=== PATIENT | male | born 1955 | race Caucasian/White ===

== ENCOUNTER 2016-11-09 16:39 | Inpatient (IN) | payer MEDICARE ==
[2016-11-09 21:02] VITALS: BMI 23.6
--- NOTE | 2016-11-09 22:06 | CP.PCM.HP ---
History of Present Illness - History of Present Illness History of Present Illness: Chief Complaint: Transferred [place] [facility] [place] HPI: The hx was obtained from the patient, his family and the medical records. He is a 61 years old male Transferred from [facility] to the [facility]. He was admitted to the [facility] on October 30, 2016 and Dx with an Acute CVA with right side weakness. He referrs no headache, dizziness, chest pain nor palpitation. PMH:DM II; HTN : CAD: CVA on 2005; CKD on HD . He previously was on PD PSH: CABG 2005 SH: Live with Family,Quit smoking 11years; Occasional Alcohol FH: No Hereditary disease Allergies: NKDA Present on Admission - Present on Admission Any Indicators Present on Admission: No History of DVT/PE: No History of Uncontrolled Diabetes: No Urinary Catheter: No Decubitus Ulcer Present: No Review of Systems - Review of Systems Review of Systems: review of system is limited because of patients dysarthria - Constitutional Constitutional: absent: Fever - EENT Eyes: Requires Corrective Lenses Nose/Mouth/Throat: absent: Epistaxis, Hoarsness - Cardiovascular Cardiovascular: absent: Dyspnea, Leg Edema, Orthopnea - Respiratory Respiratory: absent: Cough, Dyspnea, Wheezing - Gastrointestinal Gastrointestinal: absent: Dysphagia, Nausea, Vomiting - Neurological Neurological: Focal Weakness - Endocrine Endocrine: absent: Palpitations, Polydipsia, Polyphagia, Polyuria - Hematologic/Lymphatic Hematologic: absent: Easy Bleeding, Easy Bruising Past Patient History - Past Medical History & Family History Past Medical History?: Yes - Past Social History Smoking Status: Former Smoker Chewing Tobacco Use: No Cigar Use: No Alcohol: Social Drugs: Denies Home Situation {Lives}: With Family - CARDIAC Hx Cardiac Disorders: Yes Other/Comment: CAD - PULMONARY Hx Respiratory Disorders: No - NEUROLOGICAL Hx Neurological Disorder: No - HEENT Hx HEENT Problems: No - RENAL Hx Chronic Kidney Disease: Yes Hx Dialysis: Yes - ENDOCRINE/METABOLIC Hx Diabetes Mellitus Type 2: Yes - HEMATOLOGICAL/ONCOLOGICAL Hx Blood Disorders: No - INTEGUMENTARY Hx Dermatological Problems: No - MUSCULOSKELETAL/RHEUMATOLOGICAL Hx Musculoskeletal Disorders: No - GASTROINTESTINAL Hx Gastrointestinal Disorders: No - GENITOURINARY/GYNECOLOGICAL Hx Genitourinary Disorders: No - PSYCHIATRIC Hx Psychophysiologic Disorder: Yes - SURGICAL HISTORY Hx Surgeries: Yes Other/Comment: CABG 2005 - ANESTHESIA Hx Anesthesia: Yes Hx Anesthesia Reactions: No Meds Allergies/Adverse Reactions: Allergies Allergy/AdvReac Type Severity Reaction Status Date / Time No Known Allergies Allergy Verified 11/09/16 20:29 Physical Exam - Constitutional Appears: No Acute Distress - Head Exam Head Exam: ATRAUMATIC, NORMOCEPHALIC - Eye Exam Eye Exam: EOMI, Normal appearance Pupil Exam: NORMAL ACCOMODATION, PERRL - ENT Exam ENT Exam: Mucous Membranes Moist, Normal Exam - Neck Exam Neck exam: Positive for: Normal Inspection. Negative for: Lymphadenopathy, Tenderness - Respiratory Exam Respiratory Exam: Clear to Auscultation Bilateral. absent: Rales, Rhonchi, Wheezes - Cardiovascular Exam Cardiovascular Exam: REGULAR RHYTHM, RRR, +S1, +S2. absent: Gallop - GI/Abdominal Exam GI & Abdominal Exam: Normal Bowel Sounds, Soft. absent: Mass, Organomegaly, Tenderness - Rectal Exam Rectal Exam: Deferred - Extremities Exam Extremities exam: Positive for: normal inspection. Negative for: calf tenderness, pedal edema - Back Exam Back exam: NORMAL INSPECTION. absent: CVA tenderness (L), CVA tenderness (R) - Neurological Exam Neurological exam: Alert, Oriented x3 Additional comments: Dysarthria, left facial droop, motor strength 0/5 at the left upper and left lower extremities. - Psychiatric Exam Psychiatric exam: Normal Affect, Normal Mood - Skin Skin Exam: Dry, Intact, Normal Color, Warm Results - Labs Result Diagrams: 11/10/16 07:05 11/10/16 07:05 Assessment & Plan - Assessment and Plan (Free Text) Assessment: #. Acute on chronic CVA #. HTN #. CKD #. Anemia #. CAD #. Hypokalemia Plan: 61 years old male Transferred from [facility] to the [facility]. He was admitted to the [facility] on October and Dx with an Acute CVA with right side weakness. He referrs no headache , dizziness, chest pain nor palpitation. #. Acute on chronic CVA with left sided weakness - ASA/ lipitor - Consult Dr Nicole physiatry - PT/OT #. HTN - Norvasc - Coreg/ Hydralazine/amlodipine - Follow blood pressures #. CKD - Consult Dr Jain nephrology - hemodialysis , , #. Anemia - continue Venofer - follow HB #. CAD - ASA/Plaviz/ lipitor #. Hypokalemia - Replete with KCL #. Hypothyroidism - Synthroid #.Code Status: Full - Date & Time Date: 11/09/16 Time: 22:06
[2016-11-10] MEDS ORDERED: Oxycodone/Acetaminophen 5/325 mg Tab PO PRN ×2 (00:07→02:04)
[2016-11-10] MEDS: Levothyroxine 100 MCG TAB PO SCH (06:27)
[2016-11-10] MEDS: Insulin Regular 100 units/ml SC SCH ×4 (06:31→21:47)
[2016-11-10 07:33] LABS: CALCIUM 6.9 mg/dL (8.4-10.2); MAGNESIUM 2.1 MG/DL (1.6-2.3); POTASSIUM 3.5 MMOL/L (3.6-5.0)
[2016-11-10 07:36] LABS: BASO # 0.1 K/uL (0.0-0.2); BASO % 0.7 % (0.0-2.0); EOS # 0.5 K/uL (0.0-0.7); HEMATOCRIT 28.5 % (35.0-51.0); LYMPH # 2.6 K/uL (1.0-4.3); LYMPH % 31.5 % (20.0-40.0); MEAN CELL VOLUME 86.8 fl (80.0-94.0); MEAN CORPUSCULAR HEMOGLOBIN 28.9 pg (27.0-31.0); MEAN CORPUSCULAR HGB CONC 33.3 g/dL (33.0-37.0); MEAN PLATELET VOLUME 7.3 fl (7.2-11.7); MONO # 1.1 K/uL (0.0-0.8); MONO % 13.3 % (0.0-10.0); NEUT # 4.1 K/uL (1.8-7.0); NEUT % 48.5 % (50.0-75.0); NRBC % 0.3 % (0.0-0.0); RED CELL DISTRIBUTION WIDTH 14.4 % (11.5-14.5); WHITE BLOOD COUNT 8.4 K/uL (4.8-10.8)
[2016-11-10 07:51] LABS: PARTIAL THROMBOPLASTIN TIME 38.5 SECONDS (23.3-32.5)
[2016-11-10] MEDS ORDERED: Pantoprazole 40 mg EC Tab PO SCH (09:00)
[2016-11-10] MEDS ORDERED: Potassium Chloride 20 mEq ER Tab PO ONE (09:16)
[2016-11-10 10:15] LABS: PHOSPHOROUS 3.2 mg/dl (2.5-4.5)
[2016-11-10 10:16] LABS: URIC ACID 3.9 mg/Dl (3.5-8.5)
[2016-11-10] MEDS ORDERED: Potassium Chloride 20 mEq/15 ml LIQ UD PO ONE (10:42)
--- NOTE | 2016-11-10 13:38 | PN ---
DATE: 11/10/2016 OVERALL PLAN OF CARE ESTIMATED LENGTH OF STAY: For this patient is 2-1/2-3 weeks. REHABILITATION IMPAIRMENT: Decreased strength, decreased mobility, facial muscle weakness, gait diff iculty, deconditioning, balance, speech problems. ETIOLOGICAL DIAGNOSIS: Cerebrovascular accident, left hemiplegia. Medical prognosis is fair. INTERVENTIONS: For physical therapy, occupational therapy, recreational therapy, speech therapy. Go als for the patient to be independent in bed mobility, independent to supervision functional position al changes, independent to supervision for simple transfers, supervision to contact guard for complex transfers, independent to supervision for ambulation with assistive devices, supervision to contact guard for elevations. Functional outcome is good. No acute barriers noted for discharge. DISCHARGE DISPOSITION: To be discharged home with supportive services. Jd Romero MD cc: [id number] TT: 11/10/2016 13:37:08 Confirmation # [id number] Dictation # [id number]
--- NOTE | 2016-11-10 14:16 | CP.PCM.CON ---
History of Present Illness - History of Present Illness History of Present Illness: patient with complains of arm and leg weakness Review of Systems - Musculoskeletal Musculoskeletal: Abnormal Gait, Muscle Weakness - Neurological Neurological: Abnormal Gait Past Patient History - Past Medical History & Family History Past Medical History?: Yes - Past Social History Smoking Status: Former Smoker Chewing Tobacco Use: No Cigar Use: No Alcohol: Social Drugs: Denies Home Situation {Lives}: With Family - CARDIAC Hx Hypertension: Yes - PULMONARY Hx Respiratory Disorders: No - NEUROLOGICAL HX Cerebrovascular Accident: Yes - HEENT Hx HEENT Problems: No - RENAL Hx Renal Failure: Yes - ENDOCRINE/METABOLIC Hx Diabetes Mellitus Type 2: Yes Hx Hypothyroidism: Yes - HEMATOLOGICAL/ONCOLOGICAL Hx Blood Disorders: No - INTEGUMENTARY Hx Dermatological Problems: No - MUSCULOSKELETAL/RHEUMATOLOGICAL Hx Musculoskeletal Disorders: No - GASTROINTESTINAL Hx Gastrointestinal Disorders: No - GENITOURINARY/GYNECOLOGICAL Hx Genitourinary Disorders: No - PSYCHIATRIC Hx Psychophysiologic Disorder: Yes - SURGICAL HISTORY Hx Surgeries: Yes Other/Comment: CABG 2006 - ANESTHESIA Hx Anesthesia: Yes Hx Anesthesia Reactions: No Meds Allergies/Adverse Reactions: Allergies Allergy/AdvReac Type Severity Reaction Status Date / Time No Known Allergies Allergy Verified 11/09/16 20:29 - Medications Medications: Current Medications Amlodipine Besylate (Norvasc) 10 mg PO DAILY [facility] Last Admin: 11/10/16 09:17 Dose: 10 mg Aspirin (Aspirin Chewable) 81 mg PO DAILY [facility] Last Admin: 11/10/16 09:17 Dose: 81 mg Atorvastatin Calcium (Lipitor) 20 mg PO DAILY [facility] Carvedilol (Coreg) 12.5 mg PO Q12H [facility] Last Admin: 11/10/16 11:32 Dose: 12.5 mg Cinacalcet (Sensipar) 30 mg PO DAILY [facility] Last Admin: 11/10/16 09:18 Dose: 30 mg Clopidogrel Bisulfate (Plavix) 75 mg PO DAILY [facility] Last Admin: 11/10/16 09:17 Dose: 75 mg Donepezil HCl (Aricept) 5 mg PO HS [facility] Epoetin Tyrone (Procrit) 10,000 unit IV TTS [facility] Ergocalciferol (Drisdol 50,000 Intl Units Cap) 1 cap PO LEONIDAS [facility] Gabapentin (Neurontin) 100 mg PO TID [facility] Last Admin: 11/10/16 13:47 Dose: 100 mg Heparin Sodium (Porcine) (Heparin) 5,000 units SC Q8 [facility] PRN Reason: Protocol Last Admin: 11/10/16 11:29 Dose: 5,000 units Hydralazine HCl (Apresoline) 25 mg PO Q8@0600,1400,2200 [facility] Last Admin: 11/10/16 13:49 Dose: Not Given Insulin Human Regular (Humulin R) 0 units SC ACHS [facility] PRN Reason: Protocol Last Admin: 11/10/16 11:31 Dose: 2 unit Iron Sucrose (Venofer) 100 mg IV TTS [facility] Levothyroxine Sodium (Synthroid) 100 mcg PO DAILY@0630 [facility] Last Admin: 11/10/16 06:27 Dose: 100 mcg Nitroglycerin (Nitrostat Sl Tab) 0.4 mg SL Q5MIN PRN PRN Reason: Other (CHEST PAIN) Oxycodone/Acetaminophen (Percocet 5/325 Mg Tab) 1 tab PO Q4H PRN PRN Reason: .Pain scale 4-10 Stop: 11/13/16 00:08 Pantoprazole Sodium (Protonix Susp) 40 mg PO DAILY [facility] Physical Exam - Head Exam Head Exam: ATRAUMATIC, NORMAL INSPECTION, NORMOCEPHALIC - Eye Exam Eye Exam: EOMI, Normal appearance, PERRL Pupil Exam: NORMAL ACCOMODATION - ENT Exam ENT Exam: Mucous Membranes Moist, Normal Exam - Neck Exam Neck exam: Positive for: Normal Inspection - Respiratory Exam Respiratory Exam: NORMAL BREATHING PATTERN - Cardiovascular Exam Cardiovascular Exam: REGULAR RHYTHM - GI/Abdominal Exam GI & Abdominal Exam: Normal Bowel Sounds - Rectal Exam Rectal Exam: NORMAL INSPECTION - Back Exam Back exam: NORMAL INSPECTION - Neurological Exam Neurological exam: Alert, CN II-XII Intact - Expanded Neurological Exam Expanded Cerebellar Function: Finger to Nose: Abnormal Left, Heel to Mcdonald: Abnormal Left Sensory exam: Lower Extremity Light Touch: Normal, Lower Extremity Pin Prick: Normal, Upper Extremity Pin Prick: Normal Neuro motor strength exam: Left Upper Extremity: 0, Left Lower Extremity: 2/1 DTR: Achilles Tendon Left: 1+, Achilles Tendon Right: 2+, Bicep Left: 2+, Bicep Right: 2+, Brachioradialis Left: 1+, Brachioradialis Right: 2+, Patellar Left: 1 +, Patellar Right: 2+, Tricep Left: 1+, Tricep Right: 2+ - Psychiatric Exam Psychiatric exam: Normal Affect, Normal Mood - Skin Skin Exam: Dry, Intact Results - Vital Signs Recent Vital Signs: Last Vital Signs Temp 98.0 F 11/10/16 07:40 Pulse 77 11/10/16 13:49 Resp 18 11/10/16 07:40 BP 111/41 L 11/10/16 13:49 Pulse Ox 95 11/10/16 07:40 - Labs Result Diagrams: 11/10/16 07:05 11/10/16 07:05 Labs: Laboratory Results - last 24 hr 11/09/16 11/10/16 11/10/16 22:07 06:25 07:05 WBC 8.4 RBC 3.28 L Hgb 9.5 L Hct 28.5 L MCV 86.8 MCH 28.9 MCHC 33.3 RDW 14.4 Plt Count 215 MPV 7.3 Neut % (Auto) 48.5 L Lymph % (Auto) 31.5 [place] % (Auto) 13.3 H Eos % (Auto) 6.0 H Baso % (Auto) 0.7 Neut # 4.1 Lymph # 2.6 [place] # 1.1 H Eos # 0.5 Baso # 0.1 PT 13.3 H INR 1.28 H APTT 38.5 H Sodium 143 Potassium 3.5 L Chloride 101 Carbon Dioxide 28 Anion Gap 18 BUN 23 H Creatinine 4.3 H Est GFR ( Amer) 17 Est GFR (Non-Af Amer) 14 POC Glucose (mg/dL) 190 H 111 H Random Glucose 105 Uric Acid Calcium 6.9 L Phosphorus Magnesium 2.1 11/10/16 09:46 WBC RBC Hgb Hct MCV MCH MCHC RDW Plt Count MPV Neut % (Auto) Lymph % (Auto) [place] % (Auto) Eos % (Auto) Baso % (Auto) Neut # Lymph # [place] # Eos # Baso # PT INR APTT Sodium Potassium Chloride Carbon Dioxide Anion Gap BUN Creatinine Est GFR ( Amer) Est GFR (Non-Af Amer) POC Glucose (mg/dL) Random Glucose Uric Acid 3.9 Calcium Phosphorus 3.2 Magnesium Assessment & Plan (1) CVA (cerebrovascular accident) Assessment and Plan: plan for physcial, occupational, recreational therapy and speech therapy . Dictated Plan of care Status: Acute (2) ESRD (end stage renal disease) on dialysis Status: Acute (3) CAD (coronary artery disease) Status: Acute
--- NOTE | 2016-11-10 15:15 | CP.PCM.CON ---
History of Present Illness - History of Present Illness History of Present Illness: REASONS FOR CONSULT : ESRD ON HD T ANEMIA OF CKD ALL EMR REVIEWED .. LABS REVIEWED .. PT WAS EXAMINED Chief Complaint: Transferred [place] [facility] [place] HPI: The hx was obtained from the patient, his family and the medical records. He is a 61 years old male Transferred from [facility] to the [facility]. He was admitted to the [facility] on October 30, 2016 and Dx with an Acute CVA with right side weakness. He referrs no headache, dizziness, chest pain nor palpitation. PMH:DM II; HTN : CAD: CVA on 2005; CKD on HD . He previously was on PD PSH: CABG 2005 SH: Live with Family,Quit smoking 11years; Occasional Alcohol FH: No Hereditary disease Allergies: NKDA Past Patient History - Past Medical History & Family History Past Medical History?: Yes - Past Social History Smoking Status: Former Smoker Chewing Tobacco Use: No Cigar Use: No Alcohol: Social Drugs: Denies Home Situation {Lives}: With Family - CARDIAC Hx Hypertension: Yes - PULMONARY Hx Respiratory Disorders: No - NEUROLOGICAL HX Cerebrovascular Accident: Yes - HEENT Hx HEENT Problems: No - RENAL Hx Renal Failure: Yes - ENDOCRINE/METABOLIC Hx Diabetes Mellitus Type 2: Yes Hx Hypothyroidism: Yes - HEMATOLOGICAL/ONCOLOGICAL Hx Blood Disorders: No - INTEGUMENTARY Hx Dermatological Problems: No - MUSCULOSKELETAL/RHEUMATOLOGICAL Hx Musculoskeletal Disorders: No - GASTROINTESTINAL Hx Gastrointestinal Disorders: No - GENITOURINARY/GYNECOLOGICAL Hx Genitourinary Disorders: No - PSYCHIATRIC Hx Psychophysiologic Disorder: Yes - SURGICAL HISTORY Hx Surgeries: Yes Other/Comment: CABG 2005 - ANESTHESIA Hx Anesthesia: Yes Hx Anesthesia Reactions: No Meds Allergies/Adverse Reactions: Allergies Allergy/AdvReac Type Severity Reaction Status Date / Time No Known Allergies Allergy Verified 11/09/16 20:29 - Medications Medications: Current Medications Amlodipine Besylate (Norvasc) 10 mg PO DAILY [facility] Last Admin: 11/10/16 09:17 Dose: 10 mg Aspirin (Aspirin Chewable) 81 mg PO DAILY [facility] Last Admin: 11/10/16 09:17 Dose: 81 mg Atorvastatin Calcium (Lipitor) 20 mg PO DAILY [facility] Carvedilol (Coreg) 12.5 mg PO Q12H [facility] Last Admin: 11/10/16 11:32 Dose: 12.5 mg Cinacalcet (Sensipar) 30 mg PO DAILY [facility] Last Admin: 11/10/16 09:18 Dose: 30 mg Clopidogrel Bisulfate (Plavix) 75 mg PO DAILY [facility] Last Admin: 11/10/16 09:17 Dose: 75 mg Donepezil HCl (Aricept) 5 mg PO HS [facility] Epoetin Tyrone (Procrit) 10,000 unit IV TTS [facility] Ergocalciferol (Drisdol 50,000 Intl Units Cap) 1 cap PO LEONIDAS [facility] Gabapentin (Neurontin) 100 mg PO TID [facility] Last Admin: 11/10/16 13:47 Dose: 100 mg Gentamicin Sulfate (Gentamicin 0.1%) 1 applic TOP DAILY [facility] Heparin Sodium (Porcine) (Heparin) 5,000 units SC Q8 [facility] PRN Reason: Protocol Last Admin: 11/10/16 14:58 Dose: Not Given Hydralazine HCl (Apresoline) 25 mg PO Q8@0600,1400,2200 [facility] Last Admin: 11/10/16 13:49 Dose: Not Given Insulin Human Regular (Humulin R) 0 units SC ACHS [facility] PRN Reason: Protocol Last Admin: 11/10/16 11:31 Dose: 2 unit Iron Sucrose (Venofer) 100 mg IV TTS [facility] Levothyroxine Sodium (Synthroid) 100 mcg PO DAILY@0630 [facility] Last Admin: 11/10/16 06:27 Dose: 100 mcg Nitroglycerin (Nitrostat Sl Tab) 0.4 mg SL Q5MIN PRN PRN Reason: Other (CHEST PAIN) Oxycodone/Acetaminophen (Percocet 5/325 Mg Tab) 1 tab PO Q4H PRN PRN Reason: .Pain scale 4-10 Stop: 11/13/16 00:08 Pantoprazole Sodium (Protonix Susp) 40 mg PO DAILY [facility] Results - Vital Signs Recent Vital Signs: Last Vital Signs Temp 98.0 F 11/10/16 07:40 Pulse 77 11/10/16 13:49 Resp 18 11/10/16 07:40 BP 111/41 L 11/10/16 13:49 Pulse Ox 95 11/10/16 07:40 - Labs Result Diagrams: 11/10/16 07:05 11/10/16 07:05 Labs: Laboratory Results - last 24 hr 11/09/16 11/10/16 11/10/16 22:07 06:25 07:05 WBC 8.4 RBC 3.28 L Hgb 9.5 L Hct 28.5 L MCV 86.8 MCH 28.9 MCHC 33.3 RDW 14.4 Plt Count 215 MPV 7.3 Neut % (Auto) 48.5 L Lymph % (Auto) 31.5 [place] % (Auto) 13.3 H Eos % (Auto) 6.0 H Baso % (Auto) 0.7 Neut # 4.1 Lymph # 2.6 [place] # 1.1 H Eos # 0.5 Baso # 0.1 PT 13.3 H INR 1.28 H APTT 38.5 H Sodium 143 Potassium 3.5 L Chloride 101 Carbon Dioxide 28 Anion Gap 18 BUN 23 H Creatinine 4.3 H Est GFR ( Amer) 17 Est GFR (Non-Af Amer) 14 POC Glucose (mg/dL) 190 H 111 H Random Glucose 105 Uric Acid Calcium 6.9 L Phosphorus Magnesium 2.1 11/10/16 09:46 WBC RBC Hgb Hct MCV MCH MCHC RDW Plt Count MPV Neut % (Auto) Lymph % (Auto) [place] % (Auto) Eos % (Auto) Baso % (Auto) Neut # Lymph # [place] # Eos # Baso # PT INR APTT Sodium Potassium Chloride Carbon Dioxide Anion Gap BUN Creatinine Est GFR ( Amer) Est GFR (Non-Af Amer) POC Glucose (mg/dL) Random Glucose Uric Acid 3.9 Calcium Phosphorus 3.2 Magnesium Assessment & Plan - Assessment and Plan (Free Text) Assessment: ESRD ON HD TTS .. TO BE CONTINUED ANEMIA OF CKD .. WILL DO ANEMIA W/U AND TRX WITH EPO C/O CURRENT CARE ORDERS WRITTEN CONSENT FOR HD WAS OBTAINED - Date & Time Date: 11/10/16 Time: 15:00
[2016-11-11] MEDS: Levothyroxine 100 MCG TAB PO SCH (05:49)
[2016-11-11] MEDS: Insulin Regular 100 units/ml SC SCH ×4 (06:54→21:09)
[2016-11-11] MEDS: Pantoprazole 40 mg Susp UD PO SCH (08:49)
[2016-11-11] MEDS ORDERED: Iron Sucrose 100 mg/5 ml Inj IV SCH (09:00)
[2016-11-11] MEDS: EPOETIN ALFA 10,000 UNIT/ML ML IV SCH (15:31)
--- NOTE | 2016-11-11 22:33 | PN ---
DATE: 11/11/2016 The patient is doing fine, no acute complaints of nausea, vomiting, or diarrhea. The patient with pr oblems of left-sided weakness. VITAL SIGNS: Stable. NECK: Supple. CHEST: Symmetrical. HEART: Sounds S1, S2. ABDOMINAL AREA: Benign. EXTREMITIES: No clubbing, cyanosis, or edema. The patient with weakness of the left arm and left leg. IMPRESSION: Acute cerebrovascular accident, left hemiplegia secondary to cerebrovascular accident, c oronary artery disease, status post coronary artery bypass graft, hypothyroidism, end-stage renal dis ease, peripheral vascular disease, anemia. PLAN: Physical therapy, occupational therapy, speech therapy, recreational therapy, range of motion, strengthening, transfers, ambulation, gait training, and continue with the testing shaking shipping regarding th e dialysis. Jd Romero MD cc: [id number] TT: 11/11/2016 22:33:08 Confirmation # [id number] Dictation # [id number] tianna
[2016-11-12] MEDS: Levothyroxine 100 MCG TAB PO SCH (06:05)
[2016-11-12] MEDS: Insulin Regular 100 units/ml SC SCH ×4 (06:33→21:33)
[2016-11-12] MEDS: Pantoprazole 40 mg Susp UD PO SCH (08:53)
[2016-11-13] MEDS: Levothyroxine 100 MCG TAB PO SCH (06:16)
[2016-11-13] MEDS: Insulin Regular 100 units/ml SC SCH ×4 (06:42→21:38)
[2016-11-13] MEDS: Pantoprazole 40 mg Susp UD PO SCH (08:36)
[2016-11-13 10:11] LABS: CALCIUM 7.1 mg/dL (8.4-10.2); POTASSIUM 3.9 MMOL/L (3.6-5.0)
[2016-11-13] MEDS ORDERED: Oxycodone/Acetaminophen 5/325 mg Tab PO PRN (12:58)
--- NOTE | 2016-11-13 13:43 | CP.PCM.PN ---
Subjective - Date & Time of Evaluation Date of Evaluation: 11/13/16 Time of Evaluation: 11:50 - Subjective Subjective: Hospitalist Progress Note (Patient was seen at 11:50 AM 11/13/16) 61 year old male was treated at [facility] 10/30/16 for Acute CVA with residual left arm/leg leg weakness and then was transferred to [facility] 11/09/16. Currently upon FULL ROS there is NO chest pain, NO palpitations, NO SOB/Cough/ Wheezing, NO dyphagia, NO odynophagia, NO abdominal pain, NO n/v/d/c, NO burning /pain with urination, NO lightheadedness/dizziness, NO headaches, NO new changes in vision/eye pain, NO new changes in hearing/ear pain, NO edema, NO paresthesias (he has no loss of sensation on any part of his body), (+) Paralysis of Left Arm and Left Leg Objective - Vital Signs/Intake and Output Vital Signs (last 24 hours): Temp Pulse Resp BP Pulse Ox 97.5 F L 67 18 148/62 98 11/13/16 07:53 11/13/16 12:57 11/13/16 07:53 11/13/16 12:20 11/13/16 07:53 - Medications Medications: Current Medications Amlodipine Besylate (Norvasc) 10 mg PO DAILY [facility] Last Admin: 11/13/16 08:36 Dose: 10 mg Aspirin (Aspirin Chewable) 81 mg PO DAILY [facility] Last Admin: 11/13/16 08:36 Dose: 81 mg Atorvastatin Calcium (Lipitor) 20 mg PO DAILY [facility] Last Admin: 11/13/16 08:36 Dose: 20 mg Carvedilol (Coreg) 12.5 mg PO Q12H [facility] Last Admin: 11/13/16 12:20 Dose: 12.5 mg Cinacalcet (Sensipar) 30 mg PO DAILY [facility] Last Admin: 11/13/16 08:36 Dose: 30 mg Clopidogrel Bisulfate (Plavix) 75 mg PO DAILY [facility] Last Admin: 11/13/16 08:36 Dose: 75 mg Donepezil HCl (Aricept) 5 mg PO HS [facility] Last Admin: 11/12/16 21:33 Dose: 5 mg Epoetin Tyrone (Procrit) 10,000 unit IV TTS [facility] Last Admin: 11/11/16 15:31 Dose: 10,000 unit Ergocalciferol (Drisdol 50,000 Intl Units Cap) 1 cap PO LEONIDAS [facility] Gabapentin (Neurontin) 100 mg PO TID [facility] Last Admin: 11/13/16 12:21 Dose: 100 mg Gentamicin Sulfate (Gentamicin 0.1%) 1 applic TOP DAILY [facility] Last Admin: 11/13/16 08:36 Dose: 1 applic Heparin Sodium (Porcine) (Heparin) 5,000 units SC Q8 [facility] PRN Reason: Protocol Last Admin: 11/13/16 06:16 Dose: 5,000 units Hydralazine HCl (Apresoline) 25 mg PO Q8@0600,1400,2200 [facility] Last Admin: 11/13/16 06:17 Dose: 25 mg Iron Sucrose 100 mg/ Sodium (Chloride) 105 mls @ 105 mls/hr IV TTS [facility] Last Admin: 11/11/16 15:31 Dose: 105 mls/hr Insulin Human Regular (Humulin R) 0 units SC ACHS [facility] PRN Reason: Protocol Last Admin: 11/13/16 12:16 Dose: 2 unit Levothyroxine Sodium (Synthroid) 100 mcg PO DAILY@0630 [facility] Last Admin: 11/13/16 06:16 Dose: 100 mcg Nitroglycerin (Nitrostat Sl Tab) 0.4 mg SL Q5MIN PRN PRN Reason: Other (CHEST PAIN) Oxycodone/Acetaminophen (Percocet 5/325 Mg Tab) 1 tab PO Q4 PRN PRN Reason: Pain scale 4-10. Stop: 11/16/16 12:59 Pantoprazole Sodium (Protonix Susp) 40 mg PO DAILY [facility] Last Admin: 11/13/16 08:36 Dose: 40 mg Tamsulosin HCl (Flomax) 0.4 mg PO DAILY [facility] - Labs Labs: 11/10/16 07:05 11/13/16 09:30 PT 13.3 SECONDS (9.6-11.2) H 11/10/16 07:05 INR 1.28 (0.92-1.08) H 11/10/16 07:05 APTT 38.5 SECONDS (23.3-32.5) H 11/10/16 07:05 - Constitutional Appears: Non-toxic, No Acute Distress - Head Exam Head Exam: ATRAUMATIC, NORMAL INSPECTION, NORMOCEPHALIC - Eye Exam Eye Exam: EOMI, Normal appearance, PERRL Pupil Exam: NORMAL ACCOMODATION, PERRL - ENT Exam ENT Exam: Mucous Membranes Moist, Normal Exam, Normal External Ear Exam, Normal Oropharynx Additional comments: TONGUE WITH THICK SCRAPABLE WHITE/GREEN [place] - Neck Exam Neck Exam: Normal Inspection Additional comments: NO LYMPHADENOPATHY NO THYROMEGALY - Respiratory Exam Respiratory Exam: Clear to Ausculation Bilateral, NORMAL BREATHING PATTERN Additional comments: NO R/R/W - Cardiovascular Exam Cardiovascular Exam: REGULAR RHYTHM, +S1, +S2 Additional comments: NO M/R/G - GI/Abdominal Exam Additional comments: BS X 4, SOFT, NT, ND, NO HSM, NO GUARDING/REBOUND TENDERNESS - Extremities Exam Extremities Exam: Normal Capillary Refill Additional comments: NO EDEMA CAPILLARY REFILL IS 2 SECONDS PULSES ARE STRONG AND EQUAL - Neurological Exam Neurological Exam: Alert, Awake, CN II-XII Intact, Oriented x3 Neuro motor strength exam: Left Upper Extremity: 0, Right Upper Extremity: 5, Left Lower Extremity: 0, Right Lower Extremity: 5 Assessment and Plan (1) CVA (cerebrovascular accident) Assessment & Plan: Aricept 5 mg PO QHS Neurontin 100 mg PO 3x/day ASA 81 mg PO 1x/day Lipitor 20 mg PO QHS Status: Acute (2) CAD (coronary artery disease) Assessment & Plan: Norvasc 10 mg PO 1x/day ASA 81 mg PO 1x/day Lipitor 20 mg PO QHS Coreg 12.5 mg PO Q12H Plavix 75 mg PO 1x/day Nitro 0.4 SL [id number] PRN Chest Pain Status: Chronic (3) HTN (hypertension) Assessment & Plan: Norvasc and Coreg as above Hydralazine 25 mg PO 3x/day (6AM, 2PM, 10 PM) Controlled Status: Chronic (4) ESRD (end stage renal disease) on dialysis Assessment & Plan: Head Athletic Trainer/Strength Coach Dr. Jain HD via Right Chest Perm Cath [id number] Hx of Peritoneal Dialysis Sensipar 30 mg PO 1x/day Status: Chronic (5) History of urinary retention Assessment & Plan: Bladder Scan this morning revealed 614 mL urine residual and straight cath produced 1,000 mL Bladder Scan Q8H and Straight Cath if Urine Residual > 200 mL Flomax 04 mg PO 1x/day Avodart 0.5 mg PO 1x/day Status: Chronic (6) Anemia in chronic kidney disease (CKD) Assessment & Plan: Procrit 10,000 IV [id number] Ergocalciferol 1 cap PO Thurs Iron 100 mg IV [id number] Status: Chronic (7) Hypothyroid Assessment & Plan: Levothyroxine 100 mcg PO 1x/day Status: Chronic (8) Prophylactic measure Assessment & Plan: Heparin 5,000 Units SQ Q8H [facility] Protonix 40 mg PO 1x/day Percocet 5/325 mg PO Q4H PRN Moderate to Severe Pain Status: Acute
--- NOTE | 2016-11-13 19:35 | CP.PCM.PN ---
Subjective - Date & Time of Evaluation Date of Evaluation: 11/13/16 Time of Evaluation: 15:00 - Subjective Subjective: SEEN ON RENAL F/U TODAY APPEARS MORE ALERT AND MORE VERBAL HAD URINARY RETENSION .. STRAUGHT CATH DRAINED 1000 CC ON HD TTS Objective - Vital Signs/Intake and Output Vital Signs (last 24 hours): Temp Pulse Resp BP Pulse Ox 97.0 F L 70 20 129/66 98 11/13/16 19:27 11/13/16 19:27 11/13/16 19:27 11/13/16 19:27 11/13/16 19:27 - Medications Medications: Current Medications Amlodipine Besylate (Norvasc) 10 mg PO DAILY [facility] Last Admin: 11/13/16 08:36 Dose: 10 mg Ascorbic Acid (Vitamin C 500 Mg Tab) 500 mg PO DAILY [facility] Aspirin (Aspirin Chewable) 81 mg PO DAILY [facility] Last Admin: 11/13/16 08:36 Dose: 81 mg Atorvastatin Calcium (Lipitor) 20 mg PO DAILY [facility] Last Admin: 11/13/16 08:36 Dose: 20 mg Carvedilol (Coreg) 12.5 mg PO Q12H [facility] Last Admin: 11/13/16 12:20 Dose: 12.5 mg Cinacalcet (Sensipar) 30 mg PO DAILY [facility] Last Admin: 11/13/16 08:36 Dose: 30 mg Clopidogrel Bisulfate (Plavix) 75 mg PO DAILY [facility] Last Admin: 11/13/16 08:36 Dose: 75 mg Donepezil HCl (Aricept) 5 mg PO HS [facility] Last Admin: 11/12/16 21:33 Dose: 5 mg Epoetin Tyrone (Procrit) 10,000 unit IV TTS [facility] Last Admin: 11/11/16 15:31 Dose: 10,000 unit Ergocalciferol (Drisdol 50,000 Intl Units Cap) 1 cap PO LEONIDAS [facility] Finasteride (Proscar) 5 mg PO DAILY [facility] Gabapentin (Neurontin) 100 mg PO TID [facility] Last Admin: 11/13/16 16:53 Dose: 100 mg Gentamicin Sulfate (Gentamicin 0.1%) 1 applic TOP DAILY [facility] Last Admin: 11/13/16 08:36 Dose: 1 applic Heparin Sodium (Porcine) (Heparin) 5,000 units SC Q8 [facility] PRN Reason: Protocol Last Admin: 11/13/16 14:50 Dose: 5,000 units Hydralazine HCl (Apresoline) 25 mg PO Q8@0600,1400,2200 [facility] Last Admin: 11/13/16 14:49 Dose: Not Given Iron Sucrose 100 mg/ Sodium (Chloride) 105 mls @ 105 mls/hr IV TTS [facility] Last Admin: 11/11/16 15:31 Dose: 105 mls/hr Insulin Human Regular (Humulin R) 0 units SC ACHS [facility] PRN Reason: Protocol Last Admin: 11/13/16 16:53 Dose: 1 unit Levothyroxine Sodium (Synthroid) 100 mcg PO DAILY@0630 [facility] Last Admin: 11/13/16 06:16 Dose: 100 mcg Nitroglycerin (Nitrostat Sl Tab) 0.4 mg SL Q5MIN PRN PRN Reason: Other (CHEST PAIN) Oxycodone/Acetaminophen (Percocet 5/325 Mg Tab) 1 tab PO Q4 PRN PRN Reason: Pain scale 4-10. Stop: 11/16/16 12:59 Pantoprazole Sodium (Protonix Susp) 40 mg PO DAILY [facility] Last Admin: 11/13/16 08:36 Dose: 40 mg Tamsulosin HCl (Flomax) 0.4 mg PO DAILY [facility] Vitamin B Complex/Vit C/Folic Acid (Nephro-Prosper) 1 tab PO DAILY [facility] - Labs Labs: 11/10/16 07:05 11/13/16 09:30 PT 13.3 SECONDS (9.6-11.2) H 11/10/16 07:05 INR 1.28 (0.92-1.08) H 11/10/16 07:05 APTT 38.5 SECONDS (23.3-32.5) H 11/10/16 07:05 Assessment and Plan - Assessment and Plan (Free Text) Assessment: ESRD ON HD TTS ANEMIA OF CKD ON EPO URINARY RETENTION .. START FLOMAX AND AVODART STRAIGHT CATH FOR > THAN 200 CC URINE ON BLADDER SCAN Plan: ESRD ON HD TTS ANEMIA OF CKD ON EPO URINARY RETENTION C/O CURRENT CARE
[2016-11-14] MEDS: Levothyroxine 100 MCG TAB PO SCH (05:39)
[2016-11-14] MEDS: Insulin Regular 100 units/ml SC SCH ×4 (06:52→22:42)
[2016-11-14 07:33] LABS: BASO # 0.1 K/uL (0.0-0.2); BASO % 0.7 % (0.0-2.0); EOS # 0.5 K/uL (0.0-0.7); EOS % 5.5 % (0.0-4.0); HEMATOCRIT 29.7 % (35.0-51.0); LYMPH # 3.1 K/uL (1.0-4.3); LYMPH % 31.3 % (20.0-40.0); MEAN CELL VOLUME 89.2 fl (80.0-94.0); MEAN CORPUSCULAR HEMOGLOBIN 28.6 pg (27.0-31.0); MEAN CORPUSCULAR HGB CONC 32.1 g/dL (33.0-37.0); MEAN PLATELET VOLUME 7.5 fl (7.2-11.7); MONO # 1.1 K/uL (0.0-0.8); MONO % 10.8 % (0.0-10.0); NEUT # 5.1 K/uL (1.8-7.0); NEUT % 51.7 % (50.0-75.0); RED CELL DISTRIBUTION WIDTH 14.7 % (11.5-14.5); WHITE BLOOD COUNT 9.9 K/uL (4.8-10.8)
[2016-11-14 07:54] LABS: BILIRUBIN,TOTAL 0.5 mg/dl (0.2-1.3); CALCIUM 7.3 mg/dL (8.4-10.2); POTASSIUM 4.1 MMOL/L (3.6-5.0)
[2016-11-14 07:55] LABS: ALB/GLOB RATIO 0.8 (1.0-2.1)
[2016-11-14] MEDS: Multivitamin Vitamin B Complex (Nephro-Vite) Tab PO SCH (08:58)
[2016-11-14] MEDS: Pantoprazole 40 mg Susp UD PO SCH (08:59)
--- NOTE | 2016-11-14 12:49 | CP.PCM.PN ---
Subjective - Date & Time of Evaluation Date of Evaluation: 11/12/16 Time of Evaluation: 10:00 - Subjective Subjective: patinet with complaints of still with weakness Objective - Vital Signs/Intake and Output Vital Signs (last 24 hours): Temp Pulse Resp BP Pulse Ox 97.8 F 64 19 119/62 96 11/14/16 08:27 11/14/16 08:27 11/14/16 08:27 11/14/16 08:56 11/14/16 08:27 Intake and Output: 11/14/16 11/14/16 06:59 18:59 Intake Total 150 Balance 150 - Medications Medications: Current Medications Amlodipine Besylate (Norvasc) 10 mg PO DAILY [facility] Last Admin: 11/14/16 08:56 Dose: Not Given Ascorbic Acid (Vitamin C 500 Mg Tab) 500 mg PO DAILY [facility] Last Admin: 11/14/16 08:59 Dose: 500 mg Aspirin (Aspirin Chewable) 81 mg PO DAILY [facility] Last Admin: 11/14/16 09:00 Dose: 81 mg Atorvastatin Calcium (Lipitor) 20 mg PO DAILY@2100 [facility] Carvedilol (Coreg) 12.5 mg PO Q12@0900,2100 [facility] Cinacalcet (Sensipar) 30 mg PO DAILY [facility] Last Admin: 11/14/16 08:59 Dose: 30 mg Clopidogrel Bisulfate (Plavix) 75 mg PO DAILY [facility] Last Admin: 11/14/16 08:56 Dose: 75 mg Donepezil HCl (Aricept) 5 mg PO HS [facility] Last Admin: 11/13/16 21:38 Dose: 5 mg Epoetin Tyrone (Procrit) 10,000 unit IV TTS [facility] Last Admin: 11/11/16 15:31 Dose: 10,000 unit Ergocalciferol (Drisdol 50,000 Intl Units Cap) 1 cap PO LEONIDAS [facility] Finasteride (Proscar) 5 mg PO DAILY [facility] Last Admin: 11/14/16 08:58 Dose: 5 mg Gabapentin (Neurontin) 100 mg PO TID [facility] Last Admin: 11/14/16 12:11 Dose: 100 mg Gentamicin Sulfate (Gentamicin 0.1%) 1 applic TOP DAILY@0600 [facility] Heparin Sodium (Porcine) (Heparin) 5,000 units SC Q8 [facility] PRN Reason: Protocol Last Admin: 11/14/16 05:38 Dose: 5,000 units Hydralazine HCl (Apresoline) 25 mg PO Q8@0600,1400,2200 [facility] Last Admin: 11/14/16 05:39 Dose: 25 mg Iron Sucrose 100 mg/ Sodium (Chloride) 105 mls @ 105 mls/hr IV TTS [facility] Last Admin: 11/11/16 15:31 Dose: 105 mls/hr Insulin Human Regular (Humulin R) 0 units SC ACHS [facility] PRN Reason: Protocol Last Admin: 11/14/16 12:10 Dose: 2 unit Levothyroxine Sodium (Synthroid) 100 mcg PO DAILY@0630 [facility] Last Admin: 11/14/16 05:39 Dose: 100 mcg Nitroglycerin (Nitrostat Sl Tab) 0.4 mg SL Q5MIN PRN PRN Reason: Other (CHEST PAIN) Oxycodone/Acetaminophen (Percocet 5/325 Mg Tab) 1 tab PO Q4 PRN PRN Reason: Pain scale 4-10. Stop: 11/16/16 12:59 Pantoprazole Sodium (Protonix Susp) 40 mg PO DAILY [facility] Last Admin: 11/14/16 08:59 Dose: 40 mg Tamsulosin HCl (Flomax) 0.4 mg PO DAILY [facility] Last Admin: 11/14/16 09:00 Dose: 0.4 mg Vitamin B Complex/Vit C/Folic Acid (Nephro-Prosper) 1 tab PO DAILY [facility] Last Admin: 11/14/16 08:58 Dose: 1 tab - Labs Labs: 11/14/16 06:40 11/14/16 06:40 PT 13.3 SECONDS (9.6-11.2) H 11/10/16 07:05 INR 1.28 (0.92-1.08) H 11/10/16 07:05 APTT 38.5 SECONDS (23.3-32.5) H 11/10/16 07:05 - Head Exam Head Exam: ATRAUMATIC, NORMAL INSPECTION, NORMOCEPHALIC - Eye Exam Eye Exam: EOMI, Normal appearance, PERRL Pupil Exam: NORMAL ACCOMODATION - ENT Exam ENT Exam: Mucous Membranes Moist, Normal Exam - Respiratory Exam Respiratory Exam: NORMAL BREATHING PATTERN - Cardiovascular Exam Cardiovascular Exam: REGULAR RHYTHM - GI/Abdominal Exam GI & Abdominal Exam: Soft, Normal Bowel Sounds - Rectal Exam Rectal Exam: NORMAL INSPECTION - Extremities Exam Extremities Exam: Normal Capillary Refill - Back Exam Back Exam: NORMAL INSPECTION - Neurological Exam Neurological Exam: Alert, Awake Neuro motor strength exam: Left Upper Extremity: 2/, Left Lower Extremity: 2/1 - Psychiatric Exam Psychiatric exam: Normal Affect, Normal Mood - Skin Skin Exam: Dry, Intact Assessment and Plan (1) CVA (cerebrovascular accident) Assessment & Plan: physical, occupational, rec and speech therapy Status: Acute (2) ESRD (end stage renal disease) on dialysis Status: Chronic (3) CAD (coronary artery disease) Status: Chronic
--- NOTE | 2016-11-14 13:00 | CP.PCM.PN ---
Subjective - Date & Time of Evaluation Date of Evaluation: 11/14/16 Time of Evaluation: 09:00 - Subjective Subjective: no acute complaints of pain, for team conference Objective - Vital Signs/Intake and Output Vital Signs (last 24 hours): Temp Pulse Resp BP Pulse Ox 97.8 F 64 19 119/62 96 11/14/16 08:27 11/14/16 08:27 11/14/16 08:27 11/14/16 08:56 11/14/16 08:27 Intake and Output: 11/14/16 11/14/16 06:59 18:59 Intake Total 150 Balance 150 - Medications Medications: Current Medications Amlodipine Besylate (Norvasc) 10 mg PO DAILY [facility] Last Admin: 11/14/16 08:56 Dose: Not Given Ascorbic Acid (Vitamin C 500 Mg Tab) 500 mg PO DAILY [facility] Last Admin: 11/14/16 08:59 Dose: 500 mg Aspirin (Aspirin Chewable) 81 mg PO DAILY [facility] Last Admin: 11/14/16 09:00 Dose: 81 mg Atorvastatin Calcium (Lipitor) 20 mg PO DAILY@2100 [facility] Carvedilol (Coreg) 12.5 mg PO Q12@0900,2100 [facility] Cinacalcet (Sensipar) 30 mg PO DAILY [facility] Last Admin: 11/14/16 08:59 Dose: 30 mg Clopidogrel Bisulfate (Plavix) 75 mg PO DAILY [facility] Last Admin: 11/14/16 08:56 Dose: 75 mg Donepezil HCl (Aricept) 5 mg PO HS [facility] Last Admin: 11/13/16 21:38 Dose: 5 mg Epoetin Tyrone (Procrit) 10,000 unit IV TTS [facility] Last Admin: 11/11/16 15:31 Dose: 10,000 unit Ergocalciferol (Drisdol 50,000 Intl Units Cap) 1 cap PO LEONIDAS [facility] Finasteride (Proscar) 5 mg PO DAILY [facility] Last Admin: 11/14/16 08:58 Dose: 5 mg Gabapentin (Neurontin) 100 mg PO TID [facility] Last Admin: 11/14/16 12:11 Dose: 100 mg Gentamicin Sulfate (Gentamicin 0.1%) 1 applic TOP DAILY@0600 [facility] Heparin Sodium (Porcine) (Heparin) 5,000 units SC Q8 [facility] PRN Reason: Protocol Last Admin: 11/14/16 05:38 Dose: 5,000 units Hydralazine HCl (Apresoline) 25 mg PO Q8@0600,1400,2200 [facility] Last Admin: 11/14/16 05:39 Dose: 25 mg Iron Sucrose 100 mg/ Sodium (Chloride) 105 mls @ 105 mls/hr IV TTS [facility] Last Admin: 11/11/16 15:31 Dose: 105 mls/hr Insulin Human Regular (Humulin R) 0 units SC ACHS [facility] PRN Reason: Protocol Last Admin: 11/14/16 12:10 Dose: 2 unit Levothyroxine Sodium (Synthroid) 100 mcg PO DAILY@0630 [facility] Last Admin: 11/14/16 05:39 Dose: 100 mcg Nitroglycerin (Nitrostat Sl Tab) 0.4 mg SL Q5MIN PRN PRN Reason: Other (CHEST PAIN) Oxycodone/Acetaminophen (Percocet 5/325 Mg Tab) 1 tab PO Q4 PRN PRN Reason: Pain scale 4-10. Stop: 11/16/16 12:59 Pantoprazole Sodium (Protonix Susp) 40 mg PO DAILY [facility] Last Admin: 11/14/16 08:59 Dose: 40 mg Tamsulosin HCl (Flomax) 0.4 mg PO DAILY [facility] Last Admin: 11/14/16 09:00 Dose: 0.4 mg Vitamin B Complex/Vit C/Folic Acid (Nephro-Prosper) 1 tab PO DAILY [facility] Last Admin: 11/14/16 08:58 Dose: 1 tab - Labs Labs: 11/14/16 06:40 11/14/16 06:40 PT 13.3 SECONDS (9.6-11.2) H 11/10/16 07:05 INR 1.28 (0.92-1.08) H 11/10/16 07:05 APTT 38.5 SECONDS (23.3-32.5) H 11/10/16 07:05 - Head Exam Head Exam: ATRAUMATIC, NORMAL INSPECTION, NORMOCEPHALIC - Eye Exam Eye Exam: EOMI, Normal appearance, PERRL Pupil Exam: NORMAL ACCOMODATION - ENT Exam ENT Exam: Mucous Membranes Moist, Normal Exam - Respiratory Exam Respiratory Exam: NORMAL BREATHING PATTERN - Cardiovascular Exam Cardiovascular Exam: REGULAR RHYTHM - GI/Abdominal Exam GI & Abdominal Exam: Normal Bowel Sounds - Rectal Exam Rectal Exam: NORMAL INSPECTION - Extremities Exam Extremities Exam: Normal Capillary Refill - Neurological Exam Neurological Exam: Alert, Awake Neuro motor strength exam: Left Upper Extremity: 2/, Left Lower Extremity: 2/1 - Psychiatric Exam Psychiatric exam: Normal Affect, Normal Mood - Skin Skin Exam: Dry, Intact Assessment and Plan (1) CVA (cerebrovascular accident) Assessment & Plan: elec stim for the arm, physcial, occupational and rec monitor dialysis upgrade diet Status: Acute (2) ESRD (end stage renal disease) on dialysis Status: Chronic (3) CAD (coronary artery disease) Status: Chronic
--- NOTE | 2016-11-14 17:11 | CP.PCM.CON ---
History of Present Illness - History of Present Illness History of Present Illness: UROLOGY pt seen s/p paul has developed urine retention. He had a chaparro cath since he was admitted here. Since admissioin on 11/09 cath was removed but has not once voided on his own. his residual urines have beenin xcess of 600 cc. He was just recently started on flomax. Pt has limited ability to communicate. I will anvise to insert a [address] and after a week or so give him a new voiding trial Past Patient History - Past Medical History & Family History Past Medical History?: Yes - Past Social History Smoking Status: Former Smoker Chewing Tobacco Use: No Cigar Use: No Alcohol: Social Drugs: Denies Home Situation {Lives}: With Family - CARDIAC Hx Hypertension: Yes - PULMONARY Hx Respiratory Disorders: No - NEUROLOGICAL HX Cerebrovascular Accident: Yes - HEENT Hx HEENT Problems: No - RENAL Hx Renal Failure: Yes - ENDOCRINE/METABOLIC Hx Diabetes Mellitus Type 2: Yes Hx Hypothyroidism: Yes - HEMATOLOGICAL/ONCOLOGICAL Hx Blood Disorders: No - INTEGUMENTARY Hx Dermatological Problems: No - MUSCULOSKELETAL/RHEUMATOLOGICAL Hx Musculoskeletal Disorders: No - GASTROINTESTINAL Hx Gastrointestinal Disorders: No - GENITOURINARY/GYNECOLOGICAL Hx Genitourinary Disorders: No - PSYCHIATRIC Hx Psychophysiologic Disorder: Yes - SURGICAL HISTORY Hx Surgeries: Yes Other/Comment: CABG 2005 - ANESTHESIA Hx Anesthesia: Yes Hx Anesthesia Reactions: No Meds Allergies/Adverse Reactions: Allergies Allergy/AdvReac Type Severity Reaction Status Date / Time No Known Allergies Allergy Verified 11/09/16 20:29 - Medications Medications: Current Medications Amlodipine Besylate (Norvasc) 10 mg PO DAILY [facility] Last Admin: 11/14/16 08:56 Dose: Not Given Ascorbic Acid (Vitamin C 500 Mg Tab) 500 mg PO DAILY [facility] Last Admin: 11/14/16 08:59 Dose: 500 mg Aspirin (Aspirin Chewable) 81 mg PO DAILY [facility] Last Admin: 11/14/16 09:00 Dose: 81 mg Atorvastatin Calcium (Lipitor) 20 mg PO DAILY@2100 [facility] Carvedilol (Coreg) 12.5 mg PO Q12@0900,2100 [facility] Cinacalcet (Sensipar) 30 mg PO DAILY [facility] Last Admin: 11/14/16 08:59 Dose: 30 mg Clopidogrel Bisulfate (Plavix) 75 mg PO DAILY [facility] Last Admin: 11/14/16 08:56 Dose: 75 mg Donepezil HCl (Aricept) 5 mg PO HS [facility] Last Admin: 11/13/16 21:38 Dose: 5 mg Epoetin Tyrone (Procrit) 10,000 unit IV TTS [facility] Last Admin: 11/11/16 15:31 Dose: 10,000 unit Ergocalciferol (Drisdol 50,000 Intl Units Cap) 1 cap PO LEONIDAS [facility] Finasteride (Proscar) 5 mg PO DAILY [facility] Last Admin: 11/14/16 08:58 Dose: 5 mg Gabapentin (Neurontin) 100 mg PO TID [facility] Last Admin: 11/14/16 12:11 Dose: 100 mg Gentamicin Sulfate (Gentamicin 0.1%) 1 applic TOP DAILY@0600 [facility] Heparin Sodium (Porcine) (Heparin) 5,000 units SC Q8 [facility] PRN Reason: Protocol Last Admin: 11/14/16 13:02 Dose: 5,000 units Hydralazine HCl (Apresoline) 25 mg PO Q8@0600,1400,2200 [facility] Last Admin: 11/14/16 13:03 Dose: 25 mg Iron Sucrose 100 mg/ Sodium (Chloride) 105 mls @ 105 mls/hr IV TTS [facility] Last Admin: 11/11/16 15:31 Dose: 105 mls/hr Insulin Human Regular (Humulin R) 0 units SC ACHS [facility] PRN Reason: Protocol Last Admin: 11/14/16 12:10 Dose: 2 unit Levothyroxine Sodium (Synthroid) 100 mcg PO DAILY@0630 [facility] Last Admin: 11/14/16 05:39 Dose: 100 mcg Nitroglycerin (Nitrostat Sl Tab) 0.4 mg SL Q5MIN PRN PRN Reason: Other (CHEST PAIN) Oxycodone/Acetaminophen (Percocet 5/325 Mg Tab) 1 tab PO Q4 PRN PRN Reason: Pain scale 4-10. Stop: 11/16/16 12:59 Pantoprazole Sodium (Protonix Susp) 40 mg PO DAILY [facility] Last Admin: 11/14/16 08:59 Dose: 40 mg Tamsulosin HCl (Flomax) 0.4 mg PO DAILY [facility] Last Admin: 11/14/16 09:00 Dose: 0.4 mg Vitamin B Complex/Vit C/Folic Acid (Nephro-Prosper) 1 tab PO DAILY [facility] Last Admin: 11/14/16 08:58 Dose: 1 tab Results - Vital Signs Recent Vital Signs: Last Vital Signs Temp 97.5 F L 11/14/16 16:34 Pulse 65 11/14/16 16:34 Resp 20 11/14/16 16:34 BP 123/61 11/14/16 16:34 Pulse Ox 99 11/14/16 16:34 - Labs Result Diagrams: 11/14/16 06:40 11/14/16 06:40 Labs: Laboratory Results - last 24 hr 11/11/16 11/13/16 11/14/16 20:00 20:51 05:26 WBC RBC Hgb Hct MCV MCH MCHC RDW Plt Count MPV Neut % (Auto) Lymph % (Auto) Craven % (Auto) Eos % (Auto) Baso % (Auto) Neut # Lymph # Craven # Eos # Baso # Sodium Potassium Chloride Carbon Dioxide Anion Gap BUN Creatinine Est GFR ( Amer) Est GFR (Non-Af Amer) POC Glucose (mg/dL) 231 H 111 H Random Glucose Calcium Total Bilirubin AST ALT Alkaline Phosphatase Total Protein Albumin Globulin Albumin/Globulin Ratio Hep Bs Antibody Negative 11/14/16 11/14/16 11/14/16 06:40 11:24 16:17 WBC 9.9 RBC 3.33 L Hgb 9.5 L Hct 29.7 L MCV 89.2 D MCH 28.6 MCHC 32.1 L RDW 14.7 H Plt Count 190 MPV 7.5 Neut % (Auto) 51.7 Lymph % (Auto) 31.3 Craven % (Auto) 10.8 H Eos % (Auto) 5.5 H Baso % (Auto) 0.7 Neut # 5.1 Lymph # 3.1 Craven # 1.1 H Eos # 0.5 Baso # 0.1 Sodium 145 Potassium 4.1 Chloride 103 Carbon Dioxide 27 Anion Gap 20 BUN 37 H Creatinine 6.9 H Est GFR ( Amer) 10 Est GFR (Non-Af Amer) 8 POC Glucose (mg/dL) 232 H 106 Random Glucose 108 Calcium 7.3 L Total Bilirubin 0.5 AST 32 ALT 15 L Alkaline Phosphatase 121 Total Protein 7.0 Albumin 3.0 L Globulin 4.0 H Albumin/Globulin Ratio 0.8 L Hep Bs Antibody
[2016-11-14] MEDS: EPOETIN ALFA 10,000 UNIT/ML ML IV SCH ×2 (17:21→17:34)
--- NOTE | 2016-11-14 18:16 | CP.PCM.PN ---
Subjective - Date & Time of Evaluation Date of Evaluation: 11/14/16 Time of Evaluation: 13:00 - Subjective Subjective: SEEN ON RENAL F/U MORE AWARE AND VERBAL SEEN GETTING PT AND OT URINARY RETENTION REMAINS A PROBLEM CONSULT APPRECIATED .. FOR KEN CATH INSERTION Objective - Vital Signs/Intake and Output Vital Signs (last 24 hours): Temp Pulse Resp BP Pulse Ox 97.5 F L 65 20 123/61 99 11/14/16 16:34 11/14/16 16:34 11/14/16 17:39 11/14/16 17:39 11/14/16 17:39 Intake and Output: 11/14/16 11/14/16 06:59 18:59 Intake Total 150 520 Output Total 450 Balance 150 70 - Medications Medications: Current Medications Ascorbic Acid (Vitamin C 500 Mg Tab) 500 mg PO DAILY [facility] Last Admin: 11/14/16 08:59 Dose: 500 mg Aspirin (Aspirin Chewable) 81 mg PO DAILY [facility] Last Admin: 11/14/16 09:00 Dose: 81 mg Atorvastatin Calcium (Lipitor) 20 mg PO DAILY@2100 [facility] Carvedilol (Coreg) 12.5 mg PO Q12@0900,2100 [facility] Cinacalcet (Sensipar) 30 mg PO DAILY [facility] Last Admin: 11/14/16 08:59 Dose: 30 mg Clopidogrel Bisulfate (Plavix) 75 mg PO DAILY [facility] Last Admin: 11/14/16 08:56 Dose: 75 mg Donepezil HCl (Aricept) 5 mg PO HS [facility] Last Admin: 11/13/16 21:38 Dose: 5 mg Epoetin Tyrone (Procrit) 10,000 unit IV TTS [facility] Last Admin: 11/14/16 17:34 Dose: Not Given Ergocalciferol (Drisdol 50,000 Intl Units Cap) 1 cap PO LEONIDAS [facility] Finasteride (Proscar) 5 mg PO DAILY [facility] Last Admin: 11/14/16 08:58 Dose: 5 mg Gabapentin (Neurontin) 100 mg PO TID [facility] Last Admin: 11/14/16 12:11 Dose: 100 mg Gentamicin Sulfate (Gentamicin 0.1%) 1 applic TOP DAILY@0600 [facility] Heparin Sodium (Porcine) (Heparin) 5,000 units SC Q8 [facility] PRN Reason: Protocol Last Admin: 11/14/16 13:02 Dose: 5,000 units Hydralazine HCl (Apresoline) 25 mg PO Q8@0600,1400,2200 [facility] Last Admin: 11/14/16 13:03 Dose: 25 mg Iron Sucrose 100 mg/ Sodium (Chloride) 105 mls @ 105 mls/hr IV TTS [facility] Last Admin: 11/14/16 17:23 Dose: 105 mls/hr Insulin Human Regular (Humulin R) 0 units SC ACHS [facility] PRN Reason: Protocol Last Admin: 11/14/16 17:21 Dose: Not Given Levothyroxine Sodium (Synthroid) 100 mcg PO DAILY@0630 [facility] Last Admin: 11/14/16 05:39 Dose: 100 mcg Nitroglycerin (Nitrostat Sl Tab) 0.4 mg SL Q5MIN PRN PRN Reason: Other (CHEST PAIN) Oxycodone/Acetaminophen (Percocet 5/325 Mg Tab) 1 tab PO Q4 PRN PRN Reason: Pain scale 4-10. Stop: 11/16/16 12:59 Pantoprazole Sodium (Protonix Susp) 40 mg PO DAILY [facility] Last Admin: 11/14/16 08:59 Dose: 40 mg Tamsulosin HCl (Flomax) 0.4 mg PO DAILY [facility] Last Admin: 11/14/16 09:00 Dose: 0.4 mg Vitamin B Complex/Vit C/Folic Acid (Nephro-Prosper) 1 tab PO DAILY [facility] Last Admin: 11/14/16 08:58 Dose: 1 tab - Labs Labs: 11/14/16 06:40 11/14/16 06:40 PT 13.3 SECONDS (9.6-11.2) H 11/10/16 07:05 INR 1.28 (0.92-1.08) H 11/10/16 07:05 APTT 38.5 SECONDS (23.3-32.5) H 11/10/16 07:05 Assessment and Plan - Assessment and Plan (Free Text) Assessment: ESRD ON HD TTS ANEMIA OF CKD .. H/H STABLE ON EPO AND VENOFER URINARY RETENTION .. FOR KEN CATH INSERTION
[2016-11-15] MEDS: Levothyroxine 100 MCG TAB PO SCH (06:18)
[2016-11-15] MEDS: Insulin Regular 100 units/ml SC SCH ×4 (06:42→21:33)
[2016-11-15] MEDS: Multivitamin Vitamin B Complex (Nephro-Vite) Tab PO SCH (09:09)
[2016-11-15] MEDS: Pantoprazole 40 mg Susp UD PO SCH (09:09)
--- NOTE | 2016-11-15 11:54 | CP.PCM.PN ---
Subjective - Date & Time of Evaluation Date of Evaluation: 11/15/16 Time of Evaluation: 11:00 - Subjective Subjective: patinet with less complaints of weakness, alert Objective - Vital Signs/Intake and Output Vital Signs (last 24 hours): Temp Pulse Resp BP Pulse Ox 98.0 F 66 19 123/64 99 11/15/16 10:14 11/15/16 10:14 11/15/16 10:14 11/15/16 10:14 11/15/16 08:37 Intake and Output: 11/15/16 11/15/16 06:59 18:59 Intake Total 100 Output Total 400 Balance -300 - Medications Medications: Current Medications Ascorbic Acid (Vitamin C 500 Mg Tab) 500 mg PO DAILY [facility] Last Admin: 11/15/16 09:09 Dose: 500 mg Aspirin (Aspirin Chewable) 81 mg PO DAILY [facility] Last Admin: 11/15/16 09:09 Dose: 81 mg Atorvastatin Calcium (Lipitor) 20 mg PO DAILY@2100 [facility] Last Admin: 11/14/16 21:43 Dose: 20 mg Carvedilol (Coreg) 12.5 mg PO Q12@0900,2100 [facility] Last Admin: 11/15/16 09:09 Dose: 12.5 mg Clopidogrel Bisulfate (Plavix) 75 mg PO DAILY [facility] Last Admin: 11/15/16 09:09 Dose: 75 mg Donepezil HCl (Aricept) 5 mg PO HS [facility] Last Admin: 11/14/16 22:22 Dose: 5 mg Epoetin Tyorne (Procrit) 10,000 unit IV TTS [facility] Last Admin: 11/14/16 17:34 Dose: Not Given Ergocalciferol (Drisdol 50,000 Intl Units Cap) 1 cap PO LEONIDAS [facility] Finasteride (Proscar) 5 mg PO DAILY [facility] Last Admin: 11/15/16 09:10 Dose: 5 mg Gabapentin (Neurontin) 100 mg PO TID [facility] Last Admin: 11/15/16 09:10 Dose: 100 mg Gentamicin Sulfate (Gentamicin 0.1%) 1 applic TOP DAILY@0600 [facility] Last Admin: 11/15/16 06:18 Dose: 1 applic Heparin Sodium (Porcine) (Heparin) 5,000 units SC Q8 [facility] PRN Reason: Protocol Last Admin: 11/15/16 06:17 Dose: 5,000 units Hydralazine HCl (Apresoline) 25 mg PO Q8@0600,1400,2200 [facility] Last Admin: 11/15/16 06:17 Dose: 25 mg Iron Sucrose 100 mg/ Sodium (Chloride) 105 mls @ 105 mls/hr IV TTS [facility] Last Admin: 11/14/16 17:23 Dose: 105 mls/hr Insulin Human Regular (Humulin R) 0 units SC ACHS [facility] PRN Reason: Protocol Last Admin: 11/15/16 06:42 Dose: Not Given Levothyroxine Sodium (Synthroid) 100 mcg PO DAILY@0630 [facility] Last Admin: 11/15/16 06:18 Dose: 100 mcg Nitroglycerin (Nitrostat Sl Tab) 0.4 mg SL Q5MIN PRN PRN Reason: Other (CHEST PAIN) Oxycodone/Acetaminophen (Percocet 5/325 Mg Tab) 1 tab PO Q4 PRN PRN Reason: Pain scale 4-10. Stop: 11/16/16 12:59 Pantoprazole Sodium (Protonix Susp) 40 mg PO DAILY [facility] Last Admin: 11/15/16 09:09 Dose: 40 mg Tamsulosin HCl (Flomax) 0.4 mg PO DAILY [facility] Last Admin: 11/15/16 09:10 Dose: 0.4 mg Vitamin B Complex/Vit C/Folic Acid (Nephro-Prosper) 1 tab PO DAILY [facility] Last Admin: 11/15/16 09:09 Dose: 1 tab - Labs Labs: 11/14/16 06:40 11/14/16 06:40 PT 13.3 SECONDS (9.6-11.2) H 11/10/16 07:05 INR 1.28 (0.92-1.08) H 11/10/16 07:05 APTT 38.5 SECONDS (23.3-32.5) H 11/10/16 07:05 - Head Exam Head Exam: ATRAUMATIC, NORMAL INSPECTION, NORMOCEPHALIC - Eye Exam Eye Exam: EOMI, Normal appearance, PERRL Pupil Exam: NORMAL ACCOMODATION - ENT Exam ENT Exam: Mucous Membranes Moist, Normal Exam - Respiratory Exam Respiratory Exam: NORMAL BREATHING PATTERN - Cardiovascular Exam Cardiovascular Exam: REGULAR RHYTHM - GI/Abdominal Exam GI & Abdominal Exam: Normal Bowel Sounds - Rectal Exam Rectal Exam: NORMAL INSPECTION - Extremities Exam Extremities Exam: Normal Capillary Refill - Back Exam Back Exam: NORMAL INSPECTION - Neurological Exam Neurological Exam: Alert, Awake Neuro motor strength exam: Left Upper Extremity: 2/, Left Lower Extremity: 2/ - Psychiatric Exam Psychiatric exam: Normal Affect, Normal Mood - Skin Skin Exam: Dry, Intact, Normal Color Assessment and Plan (1) CVA (cerebrovascular accident) Assessment & Plan: for team conference today, pt, ot , rec therapy. follow up with E stim now also to the leg nephrology follow up as well Status: Acute (2) ESRD (end stage renal disease) on dialysis Status: Chronic (3) CAD (coronary artery disease) Status: Chronic
--- NOTE | 2016-11-15 12:39 | PSY.TMCNF ---
Nursing - Vital Signs Vital Signs (Last 8 hours): Vital Signs 11/15/16 11/15/16 11/15/16 06:17 08:37 09:09 Temperature 98.0 F Pulse Rate 65 66 66 Respiratory 19 Rate Blood Pressure 131/66 123/68 123/64 O2 Sat by Pulse 99 Oximetry 11/15/16 10:14 Temperature 98.0 F Pulse Rate 66 Respiratory 19 Rate Blood Pressure 123/64 O2 Sat by Pulse Oximetry Pain: 0 - Precautions: Precautions: Fall Prevention, Aspiration - Medications/Other Issues Comment: Still has urinary retention, fr 16 chaparro inserted last night but pt asked for it to be reomved due to discomfort. Awaiting call back from Dr. Tracy. - Consults Comment: Dr. Romero, Dr. Tracy, Dr. Jain - Toileting Toileting: Maximal Assistance - Bladder Management Bladder Pattern: Retention Bladder Management: Dependent Frequency of Accidents: 0 - Straight catheter done. - Bowel Management Bowel Pattern: Constipated Bowel Management: Maximal Assistance Frequency of Accidents: 0 - Transfers Transfers: Maximal Assistance - ADL's ADL's: Moderate Assistance - Patient/Family Teaching Comments: Care post CVA and safety precautions. Urinary retention. - Goals/Time Frame Comments: Per multidisciplinary care plans and goals Physical Therapy - Bed Mobility Bed Mobility: Verbal Cues, Moderate Assistance - Transfers Wheelchair to Mat: Verbal Cues, Moderate Assistance, Maximum Assistance Sit to Stand: Verbal Cues, Moderate Assistance Comment: sit < > terminal operations manager parallel bars - Ambulation Level of Assistance: Not Tested - Stair Negotiation Stairs: Level of Assistance: Not Tested - Standing Balance Static Stand: Maximal Assistance Dynamic Stand: Unable to assess/perform - Pain Pain (assessed during therapy session): 0 - Insight/Carryover Insight/Carryover: Good - Patient/Family Education Comment: Pt education provided for increased safety awareness and proper techniques during functional mobility training. - Assessment/Plan Assessment: Shun Fink presents: 1) moderate-severe dysarthria characterized by L facial weakness with impaired respiration for phonation, impaired articulatory precision, and mildly hoarse vocal quality with reduced vocal volume, all negatively impacting intelligibility; 2) mild-moderate cognitive deficits characterized by impaired orientation, immediate and short- term recall, linguistic organization, and problem solving/reasoning; and 3) mild -moderate oropharyngeal dysphagia (per MBS 11/08/16) characterized by prolonged mastication and oral transit time with mildly impaired oral clearance for solids , mildly delayed swallow initiation with reduced laryngeal elevation, laryngeal penetration and volume dependent aspiration with large sips of thin liquids with delayed cough response, and flash penetration with cup sips of nectar. Pt with difficulty following commands for small, single sips with thin liquid trials in this assessment. However, pt with improved oral tolerance of finely chopped solids. Upgrade to finely chopped solids with nectar thick liquids; maintain aspiration precautions and assist with meals. [ End ] - Goals Timeframe: 4 weeks - Provider Therapist: Olga SANDOVALN RN CRRN Occupational Therapy - Arousal/Attention/Orientation Patient Orientation: Person - ADL/IADL Self Feeding: Supervision, Set-up Help Grooming: Supervision, Set-up Help Bathing-Upper Extremity: Maximum Assistance Bathing-Lower Extremity: Dependent Dressing-Upper Extremity: Maximum Assistance Dressing-Lower Extremity: Maximum Assistance - Sitting Balance Static Sitting: Supervision Dynamic Sitting: Unable to assess/perform - Transfers Wheelchair to Bed Transfers: Maximum Assistance Comment: Pt not appropriate for toileting and bathing tranfsers at this time - TBD in future sessions. - Wheelchair Management Level of Assistance: Dependent - Upper Extremity Status Right Upper Extremity Comment: RUE AROM WFL t/o Left Upper Extremity Comment: LUE no AROM t/o. Pt noted with 1.5 finger sublux inferiorly. Pt PROM WFL - Pain Pain (assessed during therapy session): 0 - Insight/Carryover Insight/Carryover: Good - Patient/Family Education Comment: Pt education provided for increased safety awareness and proper techniques during functional mobility training. - Assessment/Plan Assessment: Shun Fink presents: 1) moderate-severe dysarthria characterized by L facial weakness with impaired respiration for phonation, impaired articulatory precision, and mildly hoarse vocal quality with reduced vocal volume, all negatively impacting intelligibility; 2) mild-moderate cognitive deficits characterized by impaired orientation, immediate and short- term recall, linguistic organization, and problem solving/reasoning; and 3) mild -moderate oropharyngeal dysphagia (per MBS 11/08/16) characterized by prolonged mastication and oral transit time with mildly impaired oral clearance for solids , mildly delayed swallow initiation with reduced laryngeal elevation, laryngeal penetration and volume dependent aspiration with large sips of thin liquids with delayed cough response, and flash penetration with cup sips of nectar. Pt with difficulty following commands for small, single sips with thin liquid trials in this assessment. However, pt with improved oral tolerance of finely chopped solids. Upgrade to finely chopped solids with nectar thick liquids; maintain aspiration precautions and assist with meals. [ End ] - Goals Timeframe: 4 weeks - Provider Therapist: radha mccoy License Number: [id number] Speech Therapy - Consult Information Patient on Program: Yes Medical Diagnosis: CVA Treatment Diagnosis: moderate dysarthria. moderate dysphagia. mild-moderate cognitive-linguistic deficits - Assessment Problem Solving Impairment: Moderate Memory Impairment: Moderate Speech/Articulation Impairment: Moderate Dysphagia/Swallowing Impairment: Moderate - Plan Assessment: Shun Fink presents: 1) moderate-severe dysarthria characterized by L facial weakness with impaired respiration for phonation, impaired articulatory precision, and mildly hoarse vocal quality with reduced vocal volume, all negatively impacting intelligibility; 2) mild-moderate cognitive deficits characterized by impaired orientation, immediate and short- term recall, linguistic organization, and problem solving/reasoning; and 3) mild -moderate oropharyngeal dysphagia (per MBS 11/08/16) characterized by prolonged mastication and oral transit time with mildly impaired oral clearance for solids , mildly delayed swallow initiation with reduced laryngeal elevation, laryngeal penetration and volume dependent aspiration with large sips of thin liquids with delayed cough response, and flash penetration with cup sips of nectar. Pt with difficulty following commands for small, single sips with thin liquid trials in this assessment. However, pt with improved oral tolerance of finely chopped solids. Upgrade to finely chopped solids with nectar thick liquids; maintain aspiration precautions and assist with meals. [ End ] Plan: Continue Dysphagia Therapy, Continue Speech/Language Therapy Frequency: 3-5 times per week Duration: 1 week Goals/Timeframe: As per POC dated, 11/14/16. Recommendations: Continue speech and dysphagia tx 3-5x/week. - Provider Therapist: Eden Guzman License Number: [id number] Recreational Therapy - Participation Participation: Participates in Individual and/or Group Sessions - Attendance Attendance: 3-5 times per week - Activities Leisure Activities: Television - Socialization Level of Socialization: Minimal initiation of interaction to request basic needs - Diversional Time Diversional Time: television - Assessment Assessment/Plan: Shun Fink presents: 1) moderate-severe dysarthria characterized by L facial weakness with impaired respiration for phonation, impaired articulatory precision, and mildly hoarse vocal quality with reduced vocal volume, all negatively impacting intelligibility; 2) mild-moderate cognitive deficits characterized by impaired orientation, immediate and short- term recall, linguistic organization, and problem solving/reasoning; and 3) mild -moderate oropharyngeal dysphagia (per MBS 11/08/16) characterized by prolonged mastication and oral transit time with mildly impaired oral clearance for solids , mildly delayed swallow initiation with reduced laryngeal elevation, laryngeal penetration and volume dependent aspiration with large sips of thin liquids with delayed cough response, and flash penetration with cup sips of nectar. Pt with difficulty following commands for small, single sips with thin liquid trials in this assessment. However, pt with improved oral tolerance of finely chopped solids. Upgrade to finely chopped solids with nectar thick liquids; maintain aspiration precautions and assist with meals. [ End ] - Provider Therapist: Isa Sosa, CLERICAL SPECIALIST #[id number] Nutrition - Current Diet Current Diet/ Supplement/ Feedings: Renal dialysis 2 gram Na 3 gram K+ 90 gram protein 1000 ml fluid restriction Moderate consistent CHO low fat/low cholesterol Pureed nectar thick diet - Appetite Percent Meal Consumed: 75-100% - Comments Comments: Care post CVA and safety precautions. Urinary retention. - Assessment/Goals/Time Frame Assessment/Goals/Time Frame: Still has urinary retention, fr 16 chaparro inserted last night but pt asked for it to be reomved due to discomfort. Awaiting call back from Dr. Tracy. - Provider Provider: Yamini Shaffer RD Case Management - Discharge Plan Discharge Plan: Home with significant other/family (17)
--- NOTE | 2016-11-15 15:04 | CP.PCM.PN ---
Subjective - Date & Time of Evaluation Date of Evaluation: 11/15/16 Time of Evaluation: 11:20 - Subjective Subjective: Pt seen and examined. Therapy held held because of low BP although asymptomatic , . Objective - Vital Signs/Intake and Output Vital Signs (last 24 hours): Temp Pulse Resp BP Pulse Ox 98.0 F 65 19 108/58 L 99 11/15/16 10:14 11/15/16 14:38 11/15/16 10:14 11/15/16 14:38 11/15/16 08:37 Intake and Output: 11/15/16 11/15/16 06:59 18:59 Intake Total 100 Output Total 400 Balance -300 - Medications Medications: Current Medications Ascorbic Acid (Vitamin C 500 Mg Tab) 500 mg PO DAILY [facility] Last Admin: 11/15/16 09:09 Dose: 500 mg Aspirin (Aspirin Chewable) 81 mg PO DAILY [facility] Last Admin: 11/15/16 09:09 Dose: 81 mg Atorvastatin Calcium (Lipitor) 20 mg PO DAILY@2100 [facility] Last Admin: 11/14/16 21:43 Dose: 20 mg Carvedilol (Coreg) 12.5 mg PO Q12@0900,2100 [facility] Last Admin: 11/15/16 09:09 Dose: 12.5 mg Clopidogrel Bisulfate (Plavix) 75 mg PO DAILY [facility] Last Admin: 11/15/16 09:09 Dose: 75 mg Donepezil HCl (Aricept) 5 mg PO HS [facility] Last Admin: 11/14/16 22:22 Dose: 5 mg Epoetin Tyrone (Procrit) 10,000 unit IV TTS [facility] Last Admin: 11/14/16 17:34 Dose: Not Given Ergocalciferol (Drisdol 50,000 Intl Units Cap) 1 cap PO LEONIDAS [facility] Finasteride (Proscar) 5 mg PO DAILY [facility] Last Admin: 11/15/16 09:10 Dose: 5 mg Gabapentin (Neurontin) 100 mg PO TID [facility] Last Admin: 11/15/16 13:32 Dose: 100 mg Gentamicin Sulfate (Gentamicin 0.1%) 1 applic TOP DAILY@0600 [facility] Last Admin: 11/15/16 06:18 Dose: 1 applic Heparin Sodium (Porcine) (Heparin) 5,000 units SC Q8 [facility] PRN Reason: Protocol Last Admin: 11/15/16 14:32 Dose: 5,000 units Hydralazine HCl (Apresoline) 10 mg PO Q8@0600,1400,2200 [facility] Iron Sucrose 100 mg/ Sodium (Chloride) 105 mls @ 105 mls/hr IV TTS [facility] Last Admin: 11/14/16 17:23 Dose: 105 mls/hr Insulin Human Regular (Humulin R) 0 units SC ACHS [facility] PRN Reason: Protocol Last Admin: 11/15/16 12:24 Dose: 2 unit Levothyroxine Sodium (Synthroid) 100 mcg PO DAILY@0630 [facility] Last Admin: 11/15/16 06:18 Dose: 100 mcg Nitroglycerin (Nitrostat Sl Tab) 0.4 mg SL Q5MIN PRN PRN Reason: Other (CHEST PAIN) Oxycodone/Acetaminophen (Percocet 5/325 Mg Tab) 1 tab PO Q4 PRN PRN Reason: Pain scale 4-10. Stop: 11/16/16 12:59 Pantoprazole Sodium (Protonix Susp) 40 mg PO DAILY [facility] Last Admin: 11/15/16 09:09 Dose: 40 mg Tamsulosin HCl (Flomax) 0.4 mg PO DAILY [facility] Last Admin: 11/15/16 09:10 Dose: 0.4 mg Vitamin B Complex/Vit C/Folic Acid (Nephro-Prosper) 1 tab PO DAILY [facility] Last Admin: 11/15/16 09:09 Dose: 1 tab - Labs Labs: 11/14/16 06:40 11/14/16 06:40 PT 13.3 SECONDS (9.6-11.2) H 11/10/16 07:05 INR 1.28 (0.92-1.08) H 11/10/16 07:05 APTT 38.5 SECONDS (23.3-32.5) H 11/10/16 07:05 - Constitutional Appears: No Acute Distress - Head Exam Head Exam: ATRAUMATIC - Eye Exam Eye Exam: Normal appearance - ENT Exam ENT Exam: Mucous Membranes Moist - Neck Exam Neck Exam: absent: Meningismus - Respiratory Exam Respiratory Exam: Clear to Ausculation Bilateral, NORMAL BREATHING PATTERN - Cardiovascular Exam Cardiovascular Exam: REGULAR RHYTHM, +S1, +S2 - GI/Abdominal Exam GI & Abdominal Exam: Soft. absent: Tenderness - Rectal Exam Rectal Exam: Deferred - Neurological Exam Neurological Exam: Alert, Oriented x3 - Psychiatric Exam Psychiatric exam: Normal Affect - Skin Skin Exam: Dry, Intact Assessment and Plan - Assessment and Plan (Free Text) Assessment: 61 yo male with history of HTN, CAD, ESRD (on HD), DM2 and previous CVA transferred from [facility] where he was admitted for Acute CVA with right sided weakness to Acute rehab for continuation of PT/OT. (1) CVA (cerebrovascular accident) continue PT/OT when BP is stable continue ASA and Lipitor maintain BP control (2) CAD (coronary artery disease) continue ASA, Plavix, statin and BB NTG Sl prn for chest pain (3) HTN (hypertension) BP was low this am although asymptomatic hypotension probably secondary to Flomax which also lower BP continue Coreg 12.5mg PO q 12hrs reduce Hydralazine 10mg PO q 8hrs and hold for SBP < 110 (4) ESRD (end stage renal disease) on dialysis HD on Dr. Jain on renal consult continue Sensipar 30 mg PO daily (5) History of urinary retention Bladder Scan Q8H and straight cath if residual > 200 mL Flomax 04 mg PO daily Avodart 0.5 mg PO daily (6) Anemia in chronic kidney disease (CKD) Procrit 10,000 IV [id number] Iron 100 mg IV [id number] (7) Hypothyroid Levothyroxine 100 mcg PO daily (8) Prophylactic measure Heparin 5,000 Units SQ Q8H Protonix 40 mg PO daily
[2016-11-16] MEDS: Levothyroxine 100 MCG TAB PO SCH (06:19)
[2016-11-16] MEDS: Insulin Regular 100 units/ml SC SCH ×4 (06:32→22:08)
[2016-11-16] MEDS: Multivitamin Vitamin B Complex (Nephro-Vite) Tab PO SCH (08:39)
[2016-11-16] MEDS: Pantoprazole 40 mg Susp UD PO SCH (08:39)
[2016-11-16] MEDS: Ergocalciferol 50,000 Intl Units Cap PO SCH (08:39)
--- NOTE | 2016-11-16 16:02 | CP.PCM.CON ---
History of Present Illness - History of Present Illness History of Present Illness: 61 year old male seen at bedside for evaluation of painful elongated toenails bilaterally. Pt is admitted for acute rehab, s/p CVA and hemiparesis. Pt denies recent pedal trauma or injury. Pt grades pain form bedsheets on elongated nails a 11/24. Pt has had no acute overnight events. Upon arrival patient was comfortable and undergoing hemodialysis. He denies any chest pain or shortness of breath, or dizziness at this time. Pt denies f/c/n/v. Past Patient History - Past Medical History & Family History Past Medical History?: Yes - Past Social History Smoking Status: Former Smoker Chewing Tobacco Use: No Cigar Use: No Alcohol: Social Drugs: Denies Home Situation {Lives}: With Family - CARDIAC Hx Hypertension: Yes - PULMONARY Hx Respiratory Disorders: No - NEUROLOGICAL HX Cerebrovascular Accident: Yes - HEENT Hx HEENT Problems: No - RENAL Hx Renal Failure: Yes - ENDOCRINE/METABOLIC Hx Diabetes Mellitus Type 2: Yes Hx Hypothyroidism: Yes - HEMATOLOGICAL/ONCOLOGICAL Hx Blood Disorders: No - INTEGUMENTARY Hx Dermatological Problems: No - MUSCULOSKELETAL/RHEUMATOLOGICAL Hx Musculoskeletal Disorders: No - GASTROINTESTINAL Hx Gastrointestinal Disorders: No - GENITOURINARY/GYNECOLOGICAL Hx Genitourinary Disorders: No - PSYCHIATRIC Hx Psychophysiologic Disorder: Yes - SURGICAL HISTORY Hx Surgeries: Yes Other/Comment: CABG 2005 - ANESTHESIA Hx Anesthesia: Yes Hx Anesthesia Reactions: No Meds Allergies/Adverse Reactions: Allergies Allergy/AdvReac Type Severity Reaction Status Date / Time No Known Allergies Allergy Verified 11/09/16 20:29 - Medications Medications: Current Medications Ascorbic Acid (Vitamin C 500 Mg Tab) 500 mg PO DAILY [facility] Last Admin: 11/16/16 08:39 Dose: 500 mg Aspirin (Aspirin Chewable) 81 mg PO DAILY [facility] Last Admin: 11/16/16 08:39 Dose: 81 mg Atorvastatin Calcium (Lipitor) 20 mg PO DAILY@2100 [facility] Last Admin: 11/15/16 21:34 Dose: 20 mg Carvedilol (Coreg) 12.5 mg PO Q12@0900,2100 [facility] Last Admin: 11/16/16 08:53 Dose: Not Given Clopidogrel Bisulfate (Plavix) 75 mg PO DAILY [facility] Last Admin: 11/16/16 08:39 Dose: 75 mg Donepezil HCl (Aricept) 5 mg PO HS [facility] Last Admin: 11/15/16 21:32 Dose: 5 mg Epoetin Tyrone (Procrit) 10,000 unit IV TTS [facility] Last Admin: 11/14/16 17:34 Dose: Not Given Ergocalciferol (Drisdol 50,000 Intl Units Cap) 1 cap PO LEONIDAS [facility] Last Admin: 11/16/16 08:39 Dose: 1 cap Finasteride (Proscar) 5 mg PO DAILY [facility] Last Admin: 11/16/16 08:40 Dose: 5 mg Gabapentin (Neurontin) 100 mg PO TID [facility] Last Admin: 11/16/16 12:33 Dose: 100 mg Gentamicin Sulfate (Gentamicin 0.1%) 1 applic TOP DAILY@0600 [facility] Last Admin: 11/16/16 06:19 Dose: 1 applic Heparin Sodium (Porcine) (Heparin) 5,000 units SC Q8 [facility] PRN Reason: Protocol Last Admin: 11/16/16 14:40 Dose: 5,000 units Hydralazine HCl (Apresoline) 10 mg PO Q8@0600,1400,2200 [facility] Last Admin: 11/16/16 06:19 Dose: 10 mg Iron Sucrose 100 mg/ Sodium (Chloride) 105 mls @ 105 mls/hr IV TTS [facility] Last Admin: 11/14/16 17:23 Dose: 105 mls/hr Insulin Human Regular (Humulin R) 0 units SC ACHS [facility] PRN Reason: Protocol Last Admin: 11/16/16 12:30 Dose: 2 unit Levothyroxine Sodium (Synthroid) 100 mcg PO DAILY@0630 [facility] Last Admin: 11/16/16 06:19 Dose: 100 mcg Nitroglycerin (Nitrostat Sl Tab) 0.4 mg SL Q5MIN PRN PRN Reason: Other (CHEST PAIN) Pantoprazole Sodium (Protonix Susp) 40 mg PO DAILY [facility] Last Admin: 11/16/16 08:39 Dose: 40 mg Tamsulosin HCl (Flomax) 0.4 mg PO [facility] Vitamin B Complex/Vit C/Folic Acid (Nephro-Prosper) 1 tab PO DAILY [facility] Last Admin: 11/16/16 08:39 Dose: 1 tab Physical Exam - Constitutional Appears: Well, Non-toxic, No Acute Distress - Extremities Exam Additional comments: Lower extremity focused. Full leg length compression dressing noted to be applied and intact bilaterally. VASC: Weakly palpable DP and PT pulses bilaterally, pulses graded 1/4 bilaterally. CFT to digits was less than 3 seconds. Temperature gradient runs warm to cold. DERM. No open wounds nor inter-digital macerations noted bilaterally. Dystrophic , thickened, brittle, yellowed toenails x 10. NEURO: Protective sensation grossly intact bilaterally. ORTHO: Pedal muscle strength graded 5/5 bilaterally. No tenderness upon palpation. . - Neurological Exam Neurological exam: Alert, Oriented x3 - Psychiatric Exam Psychiatric exam: Normal Affect, Normal Mood Results - Vital Signs Recent Vital Signs: Last Vital Signs Temp 97.5 F L 11/16/16 10:00 Pulse 71 11/16/16 15:47 Resp 20 11/16/16 10:00 BP 116/58 L 11/16/16 15:47 Pulse Ox 91 L 11/16/16 15:47 - Labs Result Diagrams: 11/14/16 06:40 11/14/16 06:40 Labs: Laboratory Results - last 24 hr 11/15/16 11/15/16 11/15/16 12:22 15:25 20:49 POC Glucose (mg/dL) 229 H 131 H 197 H 11/16/16 11/16/16 11/16/16 05:51 11:52 15:08 POC Glucose (mg/dL) 153 H 218 H 98 Assessment & Plan - Assessment and Plan (Free Text) Assessment: 61 year old male with onychomycosis of all 10 digits. Plan: Patient seen and evaluated. Chart, lab, and vitals reviewed. Discussed with attending Dr. Kwan. Chart, labs and vitals reviewed. Aseptic onychoreduction performed on all 10 nail-plates without incident. Pt is stable from podiatric standpoint.. To followup with attending, Dr. Kwan upon discharge for future podiatric needs. Thank you for this consult and allowing podiatry to partake in the care of this patient - Date & Time Date: 11/16/16 Time: 15:54
[2016-11-16] MEDS: EPOETIN ALFA 10,000 UNIT/ML ML IV SCH ×2 (17:19→17:26)
--- NOTE | 2016-11-16 17:29 | CP.PCM.PN ---
Subjective - Date & Time of Evaluation Date of Evaluation: 11/16/16 Time of Evaluation: 17:28 - Subjective Subjective: Patient seen in room dialysis is going on at this time he is comfortable PEG and chaparro in place denies pain continue current care Objective - Vital Signs/Intake and Output Vital Signs (last 24 hours): Temp Pulse Resp BP Pulse Ox 98.6 F 65 20 100/58 L 96 11/16/16 16:06 11/16/16 16:06 11/16/16 16:06 11/16/16 16:38 11/16/16 16:06 Intake and Output: 11/16/16 11/16/16 06:59 18:59 Intake Total 250 Output Total 200 Balance 50 - Medications Medications: Current Medications Ascorbic Acid (Vitamin C 500 Mg Tab) 500 mg PO DAILY [facility] Last Admin: 11/16/16 08:39 Dose: 500 mg Aspirin (Aspirin Chewable) 81 mg PO DAILY [facility] Last Admin: 11/16/16 08:39 Dose: 81 mg Atorvastatin Calcium (Lipitor) 20 mg PO DAILY@2100 [facility] Last Admin: 11/15/16 21:34 Dose: 20 mg Carvedilol (Coreg) 12.5 mg PO Q12@0900,2100 [facility] Last Admin: 11/16/16 08:53 Dose: Not Given Clopidogrel Bisulfate (Plavix) 75 mg PO DAILY [facility] Last Admin: 11/16/16 08:39 Dose: 75 mg Donepezil HCl (Aricept) 5 mg PO HS [facility] Last Admin: 11/15/16 21:32 Dose: 5 mg Epoetin Tyrone (Procrit) 10,000 unit IV TTS [facility] Last Admin: 11/16/16 17:26 Dose: 10,000 unit Ergocalciferol (Drisdol 50,000 Intl Units Cap) 1 cap PO LEONIDAS [facility] Last Admin: 11/16/16 08:39 Dose: 1 cap Finasteride (Proscar) 5 mg PO DAILY [facility] Last Admin: 11/16/16 08:40 Dose: 5 mg Gabapentin (Neurontin) 100 mg PO TID [facility] Last Admin: 11/16/16 12:33 Dose: 100 mg Gentamicin Sulfate (Gentamicin 0.1%) 1 applic TOP DAILY@0600 [facility] Last Admin: 11/16/16 06:19 Dose: 1 applic Heparin Sodium (Porcine) (Heparin) 5,000 units SC Q8 [facility] PRN Reason: Protocol Last Admin: 11/16/16 14:40 Dose: 5,000 units Hydralazine HCl (Apresoline) 10 mg PO Q8@0600,1400,2200 [facility] Last Admin: 11/16/16 16:38 Dose: Not Given Iron Sucrose 100 mg/ Sodium (Chloride) 105 mls @ 105 mls/hr IV TTS [facility] Last Admin: 11/16/16 17:23 Dose: 105 mls/hr Insulin Human Regular (Humulin R) 0 units SC ACHS [facility] PRN Reason: Protocol Last Admin: 11/16/16 17:18 Dose: Not Given Levothyroxine Sodium (Synthroid) 100 mcg PO DAILY@0630 [facility] Last Admin: 11/16/16 06:19 Dose: 100 mcg Nitroglycerin (Nitrostat Sl Tab) 0.4 mg SL Q5MIN PRN PRN Reason: Other (CHEST PAIN) Pantoprazole Sodium (Protonix Susp) 40 mg PO DAILY [facility] Last Admin: 11/16/16 08:39 Dose: 40 mg Tamsulosin HCl (Flomax) 0.4 mg PO HS [facility] Vitamin B Complex/Vit C/Folic Acid (Nephro-Prosper) 1 tab PO DAILY [facility] Last Admin: 11/16/16 08:39 Dose: 1 tab - Labs Labs: 11/14/16 06:40 11/14/16 06:40 PT 13.3 SECONDS (9.6-11.2) H 11/10/16 07:05 INR 1.28 (0.92-1.08) H 11/10/16 07:05 APTT 38.5 SECONDS (23.3-32.5) H 11/10/16 07:05
--- NOTE | 2016-11-16 23:06 | CP.PCM.CON ---
History of Present Illness - History of Present Illness History of Present Illness: SEEN ON RENAL F/U SEEN ON HD FEELS MUCH IMPROVED LABS REVIEWED .. MEDS REVIEWED Past Patient History - Past Medical History & Family History Past Medical History?: Yes - Past Social History Smoking Status: Former Smoker Chewing Tobacco Use: No Cigar Use: No Alcohol: Social Drugs: Denies Home Situation {Lives}: With Family - CARDIAC Hx Hypertension: Yes - PULMONARY Hx Respiratory Disorders: No - NEUROLOGICAL HX Cerebrovascular Accident: Yes - HEENT Hx HEENT Problems: No - RENAL Hx Renal Failure: Yes - ENDOCRINE/METABOLIC Hx Diabetes Mellitus Type 2: Yes Hx Hypothyroidism: Yes - HEMATOLOGICAL/ONCOLOGICAL Hx Blood Disorders: No - INTEGUMENTARY Hx Dermatological Problems: No - MUSCULOSKELETAL/RHEUMATOLOGICAL Hx Musculoskeletal Disorders: No - GASTROINTESTINAL Hx Gastrointestinal Disorders: No - GENITOURINARY/GYNECOLOGICAL Hx Genitourinary Disorders: No - PSYCHIATRIC Hx Psychophysiologic Disorder: Yes - SURGICAL HISTORY Hx Surgeries: Yes Other/Comment: CABG 2006 - ANESTHESIA Hx Anesthesia: Yes Hx Anesthesia Reactions: No Meds Allergies/Adverse Reactions: Allergies Allergy/AdvReac Type Severity Reaction Status Date / Time No Known Allergies Allergy Verified 11/09/16 20:29 - Medications Medications: Current Medications Ascorbic Acid (Vitamin C 500 Mg Tab) 500 mg PO DAILY [facility] Last Admin: 11/16/16 08:39 Dose: 500 mg Aspirin (Aspirin Chewable) 81 mg PO DAILY [facility] Last Admin: 11/16/16 08:39 Dose: 81 mg Atorvastatin Calcium (Lipitor) 20 mg PO DAILY@2100 [facility] Last Admin: 11/16/16 22:03 Dose: 20 mg Carvedilol (Coreg) 12.5 mg PO Q12@0900,2100 [facility] Last Admin: 11/16/16 22:00 Dose: 12.5 mg Clopidogrel Bisulfate (Plavix) 75 mg PO DAILY [facility] Last Admin: 11/16/16 08:39 Dose: 75 mg Donepezil HCl (Aricept) 5 mg PO HS [facility] Last Admin: 11/16/16 22:06 Dose: 5 mg Epoetin Tyrone (Procrit) 10,000 unit IV TTS [facility] Last Admin: 11/16/16 17:26 Dose: 10,000 unit Ergocalciferol (Drisdol 50,000 Intl Units Cap) 1 cap PO LEONIDAS [facility] Last Admin: 11/16/16 08:39 Dose: 1 cap Finasteride (Proscar) 5 mg PO DAILY [facility] Last Admin: 11/16/16 08:40 Dose: 5 mg Gabapentin (Neurontin) 100 mg PO TID [facility] Last Admin: 11/16/16 20:40 Dose: 100 mg Gentamicin Sulfate (Gentamicin 0.1%) 1 applic TOP DAILY@0600 [facility] Last Admin: 11/16/16 06:19 Dose: 1 applic Heparin Sodium (Porcine) (Heparin) 5,000 units SC Q8 [facility] PRN Reason: Protocol Last Admin: 11/16/16 22:07 Dose: 5,000 units Hydralazine HCl (Apresoline) 10 mg PO Q8@0600,1400,2200 [facility] Last Admin: 11/16/16 23:01 Dose: 10 mg Iron Sucrose 100 mg/ Sodium (Chloride) 105 mls @ 105 mls/hr IV TTS [facility] Last Admin: 11/16/16 17:23 Dose: 105 mls/hr Insulin Human Regular (Humulin R) 0 units SC ACHS [facility] PRN Reason: Protocol Last Admin: 11/16/16 22:08 Dose: Not Given Levothyroxine Sodium (Synthroid) 100 mcg PO DAILY@0630 [facility] Last Admin: 11/16/16 06:19 Dose: 100 mcg Nitroglycerin (Nitrostat Sl Tab) 0.4 mg SL Q5MIN PRN PRN Reason: Other (CHEST PAIN) Pantoprazole Sodium (Protonix Susp) 40 mg PO DAILY [facility] Last Admin: 11/16/16 08:39 Dose: 40 mg Tamsulosin HCl (Flomax) 0.4 mg PO HS [facility] Vitamin B Complex/Vit C/Folic Acid (Nephro-Prosper) 1 tab PO DAILY [facility] Last Admin: 11/16/16 08:39 Dose: 1 tab Results - Vital Signs Recent Vital Signs: Last Vital Signs Temp 97.3 F L 11/16/16 19:30 Pulse 71 11/16/16 23:01 Resp 20 11/16/16 19:30 BP 133/66 11/16/16 23:01 Pulse Ox 98 11/16/16 19:30 - Labs Result Diagrams: 11/14/16 06:40 11/14/16 06:40 Labs: Laboratory Results - last 24 hr 11/16/16 11/16/16 11/16/16 05:51 11:52 15:08 POC Glucose (mg/dL) 153 H 218 H 98 11/16/16 20:37 POC Glucose (mg/dL) 168 H Assessment & Plan - Assessment and Plan (Free Text) Assessment: ESRD ON HD TTS [facility] OF CKD ON EPO C/O CURRENT CARE C/O PRESENT MANAGEMENT C/O MEDS
[2016-11-17] MEDS ORDERED: Oxycodone/Acetaminophen 5/325 mg Tab PO PRN ×2 (02:11→02:24)
[2016-11-17] MEDS: Levothyroxine 100 MCG TAB PO SCH (06:50)
[2016-11-17] MEDS: Insulin Regular 100 units/ml SC SCH ×4 (07:30→22:06)
[2016-11-17] MEDS: Pantoprazole 40 mg Susp UD PO SCH (08:42)
[2016-11-17] MEDS: Multivitamin Vitamin B Complex (Nephro-Vite) Tab PO SCH (08:43)
--- NOTE | 2016-11-17 10:42 | CP.PCM.CON ---
History of Present Illness - History of Present Illness History of Present Illness: Pt is a 61 year old male from [facility] admitted to [facility] following a CVA and referred to the headline writer for [place]. Med history positive for a CVA, DM, HTN, past heart surgery. See medical record for complete medical history and medication list. Social History: Pt lives alone in [place]. He reported being a for 3+ years. Pt reported having 2 children both upstairs in his home- though earlier he spoke of living alone. Pt reported positive relationships with family members. Ed/Voc: pt born/raised in [facility], in the for 25+ years. Pt worked at [employer]. Psych history denied, pt denied a history of alc/sub abuse. Pt spoke of dsyphoria with his CVA, and fears of dependency. He spoke of not being productive and the desire for gains and improvement in his functioning. MSE: Pt alert, oriented x3, relevant/coherent, no psychosis, affect constricted , mood dysphoric/anxious over status, no si no hi ideation. Dx: Adjustment dx plan: Continued Sup therapy Past Patient History - Past Medical History & Family History Past Medical History?: Yes - Past Social History Smoking Status: Former Smoker Chewing Tobacco Use: No Cigar Use: No Alcohol: Social Drugs: Denies Home Situation {Lives}: With Family - CARDIAC Hx Hypertension: Yes - PULMONARY Hx Respiratory Disorders: No - NEUROLOGICAL HX Cerebrovascular Accident: Yes - HEENT Hx HEENT Problems: No - RENAL Hx Renal Failure: Yes - ENDOCRINE/METABOLIC Hx Diabetes Mellitus Type 2: Yes Hx Hypothyroidism: Yes - HEMATOLOGICAL/ONCOLOGICAL Hx Blood Disorders: No - INTEGUMENTARY Hx Dermatological Problems: No - MUSCULOSKELETAL/RHEUMATOLOGICAL Hx Musculoskeletal Disorders: No - GASTROINTESTINAL Hx Gastrointestinal Disorders: No - GENITOURINARY/GYNECOLOGICAL Hx Genitourinary Disorders: No - PSYCHIATRIC Hx Psychophysiologic Disorder: Yes - SURGICAL HISTORY Hx Surgeries: Yes Other/Comment: CABG 2006 - ANESTHESIA Hx Anesthesia: Yes Hx Anesthesia Reactions: No Meds Allergies/Adverse Reactions: Allergies Allergy/AdvReac Type Severity Reaction Status Date / Time No Known Allergies Allergy Verified 11/09/16 20:29 - Medications Medications: Current Medications Acetaminophen (Tylenol 325mg Tab) 650 mg PO Q6 PRN PRN Reason: Pain, Mild (1-3) Ascorbic Acid (Vitamin C 500 Mg Tab) 500 mg PO DAILY [facility] Last Admin: 11/17/16 08:43 Dose: 500 mg Aspirin (Aspirin Chewable) 81 mg PO DAILY [facility] Last Admin: 11/17/16 08:42 Dose: 81 mg Atorvastatin Calcium (Lipitor) 20 mg PO DAILY@2100 [facility] Last Admin: 11/16/16 22:03 Dose: 20 mg Carvedilol (Coreg) 12.5 mg PO Q12@0900,2100 [facility] Last Admin: 11/17/16 08:42 Dose: Not Given Clopidogrel Bisulfate (Plavix) 75 mg PO DAILY [facility] Last Admin: 11/17/16 08:43 Dose: 75 mg Donepezil HCl (Aricept) 5 mg PO HS [facility] Last Admin: 11/16/16 22:06 Dose: 5 mg Epoetin Tyrone (Procrit) 10,000 unit IV TTS [facility] Last Admin: 11/16/16 17:26 Dose: 10,000 unit Ergocalciferol (Drisdol 50,000 Intl Units Cap) 1 cap PO LEONIDAS [facility] Last Admin: 11/16/16 08:39 Dose: 1 cap Finasteride (Proscar) 5 mg PO DAILY [facility] Last Admin: 11/17/16 08:43 Dose: 5 mg Gabapentin (Neurontin) 100 mg PO TID [facility] Last Admin: 11/17/16 08:43 Dose: 100 mg Gentamicin Sulfate (Gentamicin 0.1%) 1 applic TOP DAILY@0600 [facility] Last Admin: 11/17/16 06:44 Dose: 1 applic Heparin Sodium (Porcine) (Heparin) 5,000 units SC Q8 [facility] PRN Reason: Protocol Last Admin: 11/17/16 06:41 Dose: 5,000 units Iron Sucrose 100 mg/ Sodium (Chloride) 105 mls @ 105 mls/hr IV TTS [facility] Last Admin: 11/16/16 17:23 Dose: 105 mls/hr Insulin Human Regular (Humulin R) 0 units SC ACHS [facility] PRN Reason: Protocol Last Admin: 11/17/16 07:30 Dose: Not Given Levothyroxine Sodium (Synthroid) 100 mcg PO DAILY@0630 [facility] Last Admin: 11/17/16 06:50 Dose: 100 mcg Nitroglycerin (Nitrostat Sl Tab) 0.4 mg SL Q5MIN PRN PRN Reason: Other (CHEST PAIN) Oxycodone/Acetaminophen (Percocet 5/325 Mg Tab) 1 tab PO Q4 PRN PRN Reason: PAIN SCALE 4-10 Stop: 11/20/16 04:01 Last Admin: 11/17/16 02:31 Dose: 1 tab Pantoprazole Sodium (Protonix Susp) 40 mg PO DAILY [facility] Last Admin: 11/17/16 08:42 Dose: 40 mg Tamsulosin HCl (Flomax) 0.4 mg PO HS@2200 [facility] Vitamin B Complex/Vit C/Folic Acid (Nephro-Prosper) 1 tab PO DAILY [facility] Last Admin: 11/17/16 08:43 Dose: 1 tab Results - Vital Signs Recent Vital Signs: Last Vital Signs Temp 98.1 F 11/17/16 10:00 Pulse 71 11/17/16 10:00 Resp 18 11/17/16 10:00 BP 106/50 L 11/17/16 10:00 Pulse Ox 97 11/17/16 10:00 - Labs Result Diagrams: 11/14/16 06:40 11/14/16 06:40 Labs: Laboratory Results - last 24 hr 11/16/16 11/16/16 11/16/16 11:52 15:08 20:37 POC Glucose (mg/dL) 218 H 98 168 H 11/17/16 06:59 POC Glucose (mg/dL) 119 H
--- NOTE | 2016-11-17 14:22 | CP.PCM.PN ---
Subjective - Date & Time of Evaluation Date of Evaluation: 11/17/16 Time of Evaluation: 10:20 - Subjective Subjective: Pt seen and examined. Reported to have low BP again even when lying supine. Remained asymptomatic. Objective - Vital Signs/Intake and Output Vital Signs (last 24 hours): Temp Pulse Resp BP Pulse Ox 98.1 F 65 18 106/50 L 96 11/17/16 10:00 11/17/16 11:47 11/17/16 10:00 11/17/16 10:00 11/17/16 11:47 - Medications Medications: Current Medications Acetaminophen (Tylenol 325mg Tab) 650 mg PO Q6 PRN PRN Reason: Pain, Mild (1-3) Ascorbic Acid (Vitamin C 500 Mg Tab) 500 mg PO DAILY [facility] Last Admin: 11/17/16 08:43 Dose: 500 mg Aspirin (Aspirin Chewable) 81 mg PO DAILY [facility] Last Admin: 11/17/16 08:42 Dose: 81 mg Atorvastatin Calcium (Lipitor) 20 mg PO DAILY@2100 [facility] Last Admin: 11/16/16 22:03 Dose: 20 mg Carvedilol (Coreg) 12.5 mg PO Q12@0900,2100 [facility] Last Admin: 11/17/16 08:42 Dose: Not Given Clopidogrel Bisulfate (Plavix) 75 mg PO DAILY [facility] Last Admin: 11/17/16 08:43 Dose: 75 mg Donepezil HCl (Aricept) 5 mg PO HS [facility] Last Admin: 11/16/16 22:06 Dose: 5 mg Epoetin Tyrone (Procrit) 10,000 unit IV TTS [facility] Last Admin: 11/16/16 17:26 Dose: 10,000 unit Ergocalciferol (Drisdol 50,000 Intl Units Cap) 1 cap PO LEONIDAS [facility] Last Admin: 11/16/16 08:39 Dose: 1 cap Finasteride (Proscar) 5 mg PO DAILY [facility] Last Admin: 11/17/16 08:43 Dose: 5 mg Gabapentin (Neurontin) 100 mg PO TID [facility] Last Admin: 11/17/16 12:25 Dose: 100 mg Gentamicin Sulfate (Gentamicin 0.1%) 1 applic TOP DAILY@0600 [facility] Last Admin: 11/17/16 06:44 Dose: 1 applic Heparin Sodium (Porcine) (Heparin) 5,000 units SC Q8 [facility] PRN Reason: Protocol Last Admin: 11/17/16 06:41 Dose: 5,000 units Iron Sucrose 100 mg/ Sodium (Chloride) 105 mls @ 105 mls/hr IV TTS [facility] Last Admin: 11/16/16 17:23 Dose: 105 mls/hr Insulin Human Regular (Humulin R) 0 units SC ACHS [facility] PRN Reason: Protocol Last Admin: 11/17/16 12:24 Dose: 1 unit Levothyroxine Sodium (Synthroid) 100 mcg PO DAILY@0630 [facility] Last Admin: 11/17/16 06:50 Dose: 100 mcg Nitroglycerin (Nitrostat Sl Tab) 0.4 mg SL Q5MIN PRN PRN Reason: Other (CHEST PAIN) Oxycodone/Acetaminophen (Percocet 5/325 Mg Tab) 1 tab PO Q4 PRN PRN Reason: PAIN SCALE 4-10 Stop: 11/20/16 04:01 Last Admin: 11/17/16 02:31 Dose: 1 tab Pantoprazole Sodium (Protonix Susp) 40 mg PO DAILY [facility] Last Admin: 11/17/16 08:42 Dose: 40 mg Tamsulosin HCl (Flomax) 0.4 mg PO HS@2200 [facility] Vitamin B Complex/Vit C/Folic Acid (Nephro-Prosper) 1 tab PO DAILY [facility] Last Admin: 11/17/16 08:43 Dose: 1 tab - Labs Labs: 11/14/16 06:40 11/14/16 06:40 PT 13.3 SECONDS (9.6-11.2) H 11/10/16 07:05 INR 1.28 (0.92-1.08) H 11/10/16 07:05 APTT 38.5 SECONDS (23.3-32.5) H 11/10/16 07:05 - Constitutional Appears: No Acute Distress - Head Exam Head Exam: ATRAUMATIC - Eye Exam Eye Exam: absent: Scleral icterus - ENT Exam ENT Exam: Mucous Membranes Moist - Neck Exam Neck Exam: absent: Meningismus - Respiratory Exam Respiratory Exam: Clear to Ausculation Bilateral. absent: Respiratory Distress - GI/Abdominal Exam GI & Abdominal Exam: Soft. absent: Tenderness - Rectal Exam Rectal Exam: Deferred - Neurological Exam Neurological Exam: Alert - Psychiatric Exam Psychiatric exam: Normal Affect - Skin Skin Exam: Dry, Intact Assessment and Plan - Assessment and Plan (Free Text) Assessment: 61 yo male with history of HTN, CAD, ESRD (on HD), DM2 and previous CVA [place] [facility] [place] admitted for Acute CVA with right sided weakness to Acute rehab for continuation of PT/OT. (1) CVA (cerebrovascular accident) continue PT/OT continue ASA and Lipitor maintain BP control (2) CAD (coronary artery disease) continue ASA, Plavix, statin and BB (3) HTN (hypertension) hypotensive but asymptomatic continue Coreg 12.5mg PO q 12hrs DC Hydralazine (4) ESRD (end stage renal disease) on dialysis had HD yesterday Dr. Jain on renal consult continue Sensipar 30 mg PO daily (5) History of urinary retention Bladder Scan Q8H and straight cath if residual > 200 mL Flomax 04 mg PO daily Avodart 0.5 mg PO daily (6) Anemia in chronic kidney disease (CKD) Procrit 10,000 IV [id number]-Obt Iron 100 mg IV [id number] (7) Hypothyroid Levothyroxine 100 mcg PO daily (8) Prophylactic measure Heparin 5,000 Units SQ Q8H Protonix 40 mg PO daily
--- NOTE | 2016-11-17 18:28 | CP.PCM.PN ---
Subjective - Date & Time of Evaluation Date of Evaluation: 11/17/16 Time of Evaluation: 15:00 - Subjective Subjective: SEEN ON RENAL F/U ON HD TTS DR ZUNIGA NOTE READ .. HYDRALAZIN WAS D/C PT LOOKS AND FEELS MPROVED Objective - Vital Signs/Intake and Output Vital Signs (last 24 hours): Temp Pulse Resp BP Pulse Ox 98.1 F 70 18 132/57 L 98 11/17/16 16:15 11/17/16 16:15 11/17/16 16:15 11/17/16 16:24 11/17/16 16:15 Intake and Output: 11/17/16 11/17/16 06:59 18:59 Output Total 150 Balance -150 - Medications Medications: Current Medications Acetaminophen (Tylenol 325mg Tab) 650 mg PO Q6 PRN PRN Reason: Pain, Mild (1-3) Ascorbic Acid (Vitamin C 500 Mg Tab) 500 mg PO DAILY [facility] Last Admin: 11/17/16 08:43 Dose: 500 mg Aspirin (Aspirin Chewable) 81 mg PO DAILY [facility] Last Admin: 11/17/16 08:42 Dose: 81 mg Atorvastatin Calcium (Lipitor) 20 mg PO DAILY@2100 [facility] Last Admin: 11/16/16 22:03 Dose: 20 mg Carvedilol (Coreg) 12.5 mg PO Q12@0900,2100 [facility] Last Admin: 11/17/16 08:42 Dose: Not Given Clopidogrel Bisulfate (Plavix) 75 mg PO DAILY [facility] Last Admin: 11/17/16 08:43 Dose: 75 mg Donepezil HCl (Aricept) 5 mg PO HS [facility] Last Admin: 11/16/16 22:06 Dose: 5 mg Epoetin Tyrone (Procrit) 10,000 unit IV TTS [facility] Last Admin: 11/16/16 17:26 Dose: 10,000 unit Ergocalciferol (Drisdol 50,000 Intl Units Cap) 1 cap PO LEONIDAS [facility] Last Admin: 11/16/16 08:39 Dose: 1 cap Finasteride (Proscar) 5 mg PO DAILY [facility] Last Admin: 11/17/16 08:43 Dose: 5 mg Gabapentin (Neurontin) 100 mg PO TID [facility] Last Admin: 11/17/16 16:57 Dose: 100 mg Gentamicin Sulfate (Gentamicin 0.1%) 1 applic TOP DAILY@0600 [facility] Last Admin: 11/17/16 06:44 Dose: 1 applic Heparin Sodium (Porcine) (Heparin) 5,000 units SC Q8 [facility] PRN Reason: Protocol Last Admin: 11/17/16 15:02 Dose: 5,000 units Iron Sucrose 100 mg/ Sodium (Chloride) 105 mls @ 105 mls/hr IV TTS [facility] Last Admin: 11/16/16 17:23 Dose: 105 mls/hr Insulin Human Regular (Humulin R) 0 units SC ACHS [facility] PRN Reason: Protocol Last Admin: 11/17/16 16:08 Dose: Not Given Levothyroxine Sodium (Synthroid) 100 mcg PO DAILY@0630 [facility] Last Admin: 11/17/16 06:50 Dose: 100 mcg Nitroglycerin (Nitrostat Sl Tab) 0.4 mg SL Q5MIN PRN PRN Reason: Other (CHEST PAIN) Oxycodone/Acetaminophen (Percocet 5/325 Mg Tab) 1 tab PO Q4 PRN PRN Reason: PAIN SCALE 4-10 Stop: 11/20/16 04:01 Last Admin: 11/17/16 02:31 Dose: 1 tab Pantoprazole Sodium (Protonix Susp) 40 mg PO DAILY [facility] Last Admin: 11/17/16 08:42 Dose: 40 mg Tamsulosin HCl (Flomax) 0.4 mg PO HS@2200 [facility] Vitamin B Complex/Vit C/Folic Acid (Nephro-Prosper) 1 tab PO DAILY [facility] Last Admin: 11/17/16 08:43 Dose: 1 tab - Labs Labs: 11/14/16 06:40 11/14/16 06:40 PT 13.3 SECONDS (9.6-11.2) H 11/10/16 07:05 INR 1.28 (0.92-1.08) H 11/10/16 07:05 APTT 38.5 SECONDS (23.3-32.5) H 11/10/16 07:05 Assessment and Plan - Assessment and Plan (Free Text) Assessment: ESRD ON HD TTS C/O CURRENT CARE C/O CURRENT MEDS
[2016-11-17] MEDS: Dorzolamide 2% Ophth Soln OU SCH (21:57)
[2016-11-17] MEDS: Latanoprost 0.005% Opht SOUTION OU SCH (22:03)
[2016-11-18] MEDS: Levothyroxine 100 MCG TAB PO SCH (06:05)
[2016-11-18] MEDS: Insulin Regular 100 units/ml SC SCH ×4 (07:43→21:20)
[2016-11-18] MEDS: Pantoprazole 40 mg Susp UD PO SCH (08:39)
[2016-11-18] MEDS: Multivitamin Vitamin B Complex (Nephro-Vite) Tab PO SCH (08:39)
[2016-11-18] MEDS: Dorzolamide 2% Ophth Soln OU SCH ×2 (08:40→21:10)
[2016-11-18] MEDS: EPOETIN ALFA 10,000 UNIT/ML ML IV SCH (14:06)
[2016-11-18] MEDS: Latanoprost 0.005% Opht SOUTION OU SCH (21:18)
[2016-11-19] MEDS: Levothyroxine 100 MCG TAB PO SCH (05:46)
[2016-11-19] MEDS: Insulin Regular 100 units/ml SC SCH ×4 (06:51→21:36)
[2016-11-19] MEDS: Pantoprazole 40 mg Susp UD PO SCH (08:28)
[2016-11-19] MEDS: Multivitamin Vitamin B Complex (Nephro-Vite) Tab PO SCH (08:29)
[2016-11-19] MEDS: Dorzolamide 2% Ophth Soln OU SCH ×2 (08:30→21:06)
[2016-11-19] MEDS: Latanoprost 0.005% Opht SOUTION OU SCH (21:34)
[2016-11-20] MEDS: Levothyroxine 100 MCG TAB PO SCH (06:22)
[2016-11-20] MEDS: Insulin Regular 100 units/ml SC SCH ×4 (06:42→21:41)
[2016-11-20] MEDS: Dorzolamide 2% Ophth Soln OU SCH ×2 (08:57→21:30)
[2016-11-20] MEDS: Pantoprazole 40 mg Susp UD PO SCH (08:57)
[2016-11-20] MEDS: Multivitamin Vitamin B Complex (Nephro-Vite) Tab PO SCH (08:57)
--- NOTE | 2016-11-20 18:32 | CP.PCM.PN ---
Subjective - Date & Time of Evaluation Date of Evaluation: 11/20/16 Time of Evaluation: 12:00 - Subjective Subjective: Hospitalist Progress Note (Patient was seen at 12:00 PM 11/20/16) 61 year old male was treated at [facility] [place] 10/30/16 for Acute CVA with residual left arm/leg leg weakness and then was transferred to [facility] Rehab 11/09/16. Currently upon FULL ROS there is NO chest pain, NO palpitations, NO SOB/Cough/ Wheezing, NO dyphagia, NO odynophagia, NO abdominal pain, NO n/v/d/c (last bowel movement was 11/19/16), NO burning/pain with urination, NO lightheadedness/ dizziness, NO headaches, NO new changes in vision/eye pain, NO new changes in hearing/ear pain, NO edema, NO paresthesias (he has no loss of sensation on any part of his body), (+) Paralysis of Left Arm and Left Leg, (+) Left Shoulder Pain aching pain - Constitutional Appears: Non-toxic, No Acute Distress - Head Exam Head Exam: ATRAUMATIC, NORMAL INSPECTION, NORMOCEPHALIC - Eye Exam Eye Exam: EOMI, Normal appearance, PERRL Pupil Exam: NORMAL ACCOMODATION, PERRLA - ENT Exam ENT Exam: Mucous Membranes Moist, Normal Exam, Normal External Ear Exam, Normal Oropharynx Additional comments: TONGUE IS NORMAL - Neck Exam Neck Exam: Normal Inspection Additional comments: NO LYMPHADENOPATHY NO THYROMEGALY - Respiratory Exam Respiratory Exam: Clear to Ausculation Bilateral, NORMAL BREATHING PATTERN Additional comments: NO R/R/W - Cardiovascular Exam Cardiovascular Exam: REGULAR RHYTHM, +S1, +S2 Additional comments: SYSTOLIC MURMUR LEFT LOWER STERNAL BORDER HEARD TODAY - GI/Abdominal Exam Additional comments: BS X 4, SOFT, NT, ND, NO HSM, NO GUARDING/REBOUND TENDERNESS - Extremities Exam Extremities Exam: Normal Capillary Refill Additional comments: NO EDEMA CAPILLARY REFILL IS 2 SECONDS PULSES APPEAR TO BE STRONGER ON THE RIGHT UE/LE COMPARED TO THE LEFT UE/LE - Neurological Exam Neurological Exam: Alert, Awake, CN II-XII Intact, Oriented x3 Neuro motor strength exam: Left Upper Extremity: 0, Right Upper Extremity: 5, Left Lower Extremity: 0, Right Lower Extremity: 5 Assessment and Plan (1) CVA (cerebrovascular accident) Assessment & Plan: Bencept 5 mg PO QHS Neurontin 100 mg PO 3x/day ASA 81 mg PO 1x/day Lipitor 20 mg PO QHS Status: Acute (2) CAD (coronary artery disease) Assessment & Plan: ASA 81 mg PO 1x/day Lipitor 20 mg PO QHS Coreg 12.5 mg PO Q12H Plavix 75 mg PO 1x/day Nitro 0.4 SL [id number] PRN Chest Pain Status: Chronic (3) HTN (hypertension) Assessment & Plan: Coreg 12.5 mg PO Q12H Norvasc and Hydralazine were discontinued Controlled Status: Chronic (4) ESRD (end stage renal disease) on dialysis Assessment & Plan: Gasket Former Dr. Jain HD via Right Chest Perm Cath Pwlz-Cgzde-Dor Hx of Peritoneal Dialysis Status: Chronic (5) History of urinary retention Assessment & Plan: Urologist Dr. Tracy Likely secondary to neurogenic bladder 12 [place] [address] Catheter in place Flomax 04 mg PO 1x/day Avodart 0.5 mg PO 1x/day Status: Chronic (6) Anemia in chronic kidney disease (CKD) Assessment & Plan: Procrit 10,000 IV [id number]-Pvz Ergocalciferol 1 cap PO Thurs Iron 100 mg IV Duvr-Pyevt-Idh Status: Chronic (7) Hypothyroid Assessment & Plan: Levothyroxine 100 mcg PO 1x/day Status: Chronic (8) Prophylactic measure Assessment & Plan: Heparin 5,000 Units SQ Q8H Latanoprost 1 drop Bilateral Eyes 1x/day Trusopt 1 darnell Bilateral Eyes 1x/day Vitamin B/C/Folic Acid RISS Protonix 40 mg PO 1x/day Percocet 5/325 mg PO Q4H PRN Moderate to Severe Pain Status: Acute Objective - Vital Signs/Intake and Output Vital Signs (last 24 hours): Temp Pulse Resp BP Pulse Ox 97.7 F 64 20 122/56 L 99 11/20/16 16:30 11/20/16 16:32 11/20/16 16:30 11/20/16 16:32 11/20/16 16:32 Intake and Output: 11/20/16 11/20/16 06:59 18:59 Intake Total 200 510 Output Total 500 450 Balance -300 60 - Medications Medications: Current Medications Acetaminophen (Tylenol 325mg Tab) 650 mg PO Q6 PRN PRN Reason: Pain 4-10 Ascorbic Acid (Vitamin C 500 Mg Tab) 500 mg PO DAILY [facility] Last Admin: 11/20/16 08:58 Dose: 500 mg Aspirin (Aspirin Chewable) 81 mg PO DAILY [facility] Last Admin: 11/20/16 08:58 Dose: 81 mg Atorvastatin Calcium (Lipitor) 20 mg PO DAILY@2100 [facility] Last Admin: 11/19/16 21:05 Dose: 20 mg Carvedilol (Coreg) 12.5 mg PO Q12@0900,2100 [facility] Last Admin: 11/20/16 08:58 Dose: 12.5 mg Clopidogrel Bisulfate (Plavix) 75 mg PO DAILY [facility] Last Admin: 11/20/16 08:58 Dose: 75 mg Donepezil HCl (Aricept) 5 mg PO HS [facility] Last Admin: 11/19/16 21:34 Dose: 5 mg Dorzolamide HCl (Trusopt) 1 drop OU 0900,2200 [facility] Last Admin: 11/20/16 08:57 Dose: 1 drop Epoetin Tyrone (Procrit) 10,000 unit IV TTS [facility] Last Admin: 11/18/16 14:06 Dose: 10,000 unit Ergocalciferol (Drisdol 50,000 Intl Units Cap) 1 cap PO LEONIDAS [facility] Last Admin: 11/16/16 08:39 Dose: 1 cap Finasteride (Proscar) 5 mg PO DAILY [facility] Last Admin: 11/20/16 08:58 Dose: 5 mg Gabapentin (Neurontin) 100 mg PO TID [facility] Last Admin: 11/20/16 17:06 Dose: 100 mg Gentamicin Sulfate (Gentamicin 0.1%) 1 applic TOP DAILY@0600 [facility] Last Admin: 11/20/16 06:00 Dose: 1 applic Heparin Sodium (Porcine) (Heparin) 5,000 units SC Q8 [facility] PRN Reason: Protocol Last Admin: 11/20/16 13:40 Dose: 5,000 units Iron Sucrose 100 mg/ Sodium (Chloride) 105 mls @ 105 mls/hr IV TTS [facility] Last Admin: 11/18/16 15:36 Dose: 105 mls/hr Insulin Human Regular (Humulin R) 0 units SC ACHS [facility] PRN Reason: Protocol Last Admin: 11/20/16 17:07 Dose: 1 unit Latanoprost (Xalatan Opht) 1 drop OU HS [facility] Last Admin: 11/19/16 21:34 Dose: 1 drop Levothyroxine Sodium (Synthroid) 100 mcg PO DAILY@0630 [facility] Last Admin: 11/20/16 06:22 Dose: 100 mcg Nitroglycerin (Nitrostat Sl Tab) 0.4 mg SL Q5MIN PRN PRN Reason: Other (CHEST PAIN) Pantoprazole Sodium (Protonix Susp) 40 mg PO DAILY [facility] Last Admin: 11/20/16 08:57 Dose: 40 mg Tamsulosin HCl (Flomax) 0.4 mg PO HS@2200 [facility] Last Admin: 11/19/16 21:06 Dose: 0.4 mg Vitamin B Complex/Vit C/Folic Acid (Nephro-Prosper) 1 tab PO DAILY [facility] Last Admin: 11/20/16 08:57 Dose: 1 tab - Labs Labs: 11/14/16 06:40 11/14/16 06:40 PT 13.3 SECONDS (9.6-11.2) H 11/10/16 07:05 INR 1.28 (0.92-1.08) H 11/10/16 07:05 APTT 38.5 SECONDS (23.3-32.5) H 11/10/16 07:05 Assessment and Plan (1) CVA (cerebrovascular accident) Status: Acute (2) CAD (coronary artery disease) Status: Chronic (3) HTN (hypertension) Status: Chronic (4) ESRD (end stage renal disease) on dialysis Status: Chronic (5) History of urinary retention Status: Chronic (6) Anemia in chronic kidney disease (CKD) Status: Chronic (7) Hypothyroid Status: Chronic (8) Prophylactic measure Status: Acute
--- NOTE | 2016-11-20 18:33 | CP.PCM.PN ---
Subjective - Date & Time of Evaluation Date of Evaluation: 11/20/16 Time of Evaluation: 18:32 - Subjective Subjective: Dr Roca coverage for Dr Nicole He is in room MCA distribution left HP has some more left LE recovery, but has not translated into increased gait at this point left UE, dense HP +dysarthria and dysphagia continue with current care Objective - Vital Signs/Intake and Output Vital Signs (last 24 hours): Temp Pulse Resp BP Pulse Ox 97.7 F 64 20 122/56 L 99 11/20/16 16:30 11/20/16 16:32 11/20/16 16:30 11/20/16 16:32 11/20/16 16:32 Intake and Output: 11/20/16 11/20/16 06:59 18:59 Intake Total 200 510 Output Total 500 450 Balance -300 60 - Medications Medications: Current Medications Acetaminophen (Tylenol 325mg Tab) 650 mg PO Q6 PRN PRN Reason: Pain 4-10 Ascorbic Acid (Vitamin C 500 Mg Tab) 500 mg PO DAILY [facility] Last Admin: 11/20/16 08:58 Dose: 500 mg Aspirin (Aspirin Chewable) 81 mg PO DAILY [facility] Last Admin: 11/20/16 08:58 Dose: 81 mg Atorvastatin Calcium (Lipitor) 20 mg PO DAILY@2100 [facility] Last Admin: 11/19/16 21:05 Dose: 20 mg Carvedilol (Coreg) 12.5 mg PO Q12@0900,2100 [facility] Last Admin: 11/20/16 08:58 Dose: 12.5 mg Clopidogrel Bisulfate (Plavix) 75 mg PO DAILY [facility] Last Admin: 11/20/16 08:58 Dose: 75 mg Donepezil HCl (Aricept) 5 mg PO HS [facility] Last Admin: 11/19/16 21:34 Dose: 5 mg Dorzolamide HCl (Trusopt) 1 drop OU 0900,2200 [facility] Last Admin: 11/20/16 08:57 Dose: 1 drop Epoetin Tyrone (Procrit) 10,000 unit IV TTS [facility] Last Admin: 11/18/16 14:06 Dose: 10,000 unit Ergocalciferol (Drisdol 50,000 Intl Units Cap) 1 cap PO LEONIDAS [facility] Last Admin: 11/16/16 08:39 Dose: 1 cap Finasteride (Proscar) 5 mg PO DAILY [facility] Last Admin: 11/20/16 08:58 Dose: 5 mg Gabapentin (Neurontin) 100 mg PO TID [facility] Last Admin: 11/20/16 17:06 Dose: 100 mg Gentamicin Sulfate (Gentamicin 0.1%) 1 applic TOP DAILY@0600 [facility] Last Admin: 11/20/16 06:00 Dose: 1 applic Heparin Sodium (Porcine) (Heparin) 5,000 units SC Q8 [facility] PRN Reason: Protocol Last Admin: 11/20/16 13:40 Dose: 5,000 units Iron Sucrose 100 mg/ Sodium (Chloride) 105 mls @ 105 mls/hr IV TTS [facility] Last Admin: 11/18/16 15:36 Dose: 105 mls/hr Insulin Human Regular (Humulin R) 0 units SC ACHS [facility] PRN Reason: Protocol Last Admin: 11/20/16 17:07 Dose: 1 unit Latanoprost (Xalatan Opht) 1 drop OU HS [facility] Last Admin: 11/19/16 21:34 Dose: 1 drop Levothyroxine Sodium (Synthroid) 100 mcg PO DAILY@0630 [facility] Last Admin: 11/20/16 06:22 Dose: 100 mcg Nitroglycerin (Nitrostat Sl Tab) 0.4 mg SL Q5MIN PRN PRN Reason: Other (CHEST PAIN) Pantoprazole Sodium (Protonix Susp) 40 mg PO DAILY [facility] Last Admin: 11/20/16 08:57 Dose: 40 mg Tamsulosin HCl (Flomax) 0.4 mg PO HS@2200 [facility] Last Admin: 11/19/16 21:06 Dose: 0.4 mg Vitamin B Complex/Vit C/Folic Acid (Nephro-Prosper) 1 tab PO DAILY [facility] Last Admin: 11/20/16 08:57 Dose: 1 tab - Labs Labs: 11/14/16 06:40 11/14/16 06:40 PT 13.3 SECONDS (9.6-11.2) H 11/10/16 07:05 INR 1.28 (0.92-1.08) H 11/10/16 07:05 APTT 38.5 SECONDS (23.3-32.5) H 11/10/16 07:05
--- NOTE | 2016-11-20 20:26 | CP.PCM.PN ---
Subjective - Date & Time of Evaluation Date of Evaluation: 11/20/16 Time of Evaluation: 15:00 - Subjective Subjective: SEEN ON RENAL F/U FEELS MUCH IMPROVED GETTING PT HEMODYNAMICALLY STABLE ON HD T T S Objective - Vital Signs/Intake and Output Vital Signs (last 24 hours): Temp Pulse Resp BP Pulse Ox 98.4 F 66 20 114/61 98 11/20/16 19:30 11/20/16 19:30 11/20/16 19:30 11/20/16 19:30 11/20/16 19:30 Intake and Output: 11/20/16 11/21/16 18:59 06:59 Intake Total 510 Output Total 450 Balance 60 - Medications Medications: Current Medications Acetaminophen (Tylenol 325mg Tab) 650 mg PO Q6 PRN PRN Reason: Pain 4-10 Ascorbic Acid (Vitamin C 500 Mg Tab) 500 mg PO DAILY [facility] Last Admin: 11/20/16 08:58 Dose: 500 mg Aspirin (Aspirin Chewable) 81 mg PO DAILY [facility] Last Admin: 11/20/16 08:58 Dose: 81 mg Atorvastatin Calcium (Lipitor) 20 mg PO DAILY@2100 [facility] Last Admin: 11/19/16 21:05 Dose: 20 mg Carvedilol (Coreg) 12.5 mg PO Q12@0900,2100 [facility] Last Admin: 11/20/16 08:58 Dose: 12.5 mg Clopidogrel Bisulfate (Plavix) 75 mg PO DAILY [facility] Last Admin: 11/20/16 08:58 Dose: 75 mg Donepezil HCl (Aricept) 5 mg PO HS [facility] Last Admin: 11/19/16 21:34 Dose: 5 mg Dorzolamide HCl (Trusopt) 1 drop OU 0900,2200 [facility] Last Admin: 11/20/16 08:57 Dose: 1 drop Epoetin Tyrone (Procrit) 10,000 unit IV TTS [facility] Last Admin: 11/18/16 14:06 Dose: 10,000 unit Ergocalciferol (Drisdol 50,000 Intl Units Cap) 1 cap PO LEONIDAS [facility] Last Admin: 11/16/16 08:39 Dose: 1 cap Finasteride (Proscar) 5 mg PO DAILY [facility] Last Admin: 11/20/16 08:58 Dose: 5 mg Gabapentin (Neurontin) 100 mg PO TID [facility] Last Admin: 11/20/16 17:06 Dose: 100 mg Gentamicin Sulfate (Gentamicin 0.1%) 1 applic TOP DAILY@0600 [facility] Last Admin: 11/20/16 06:00 Dose: 1 applic Heparin Sodium (Porcine) (Heparin) 5,000 units SC Q8 [facility] PRN Reason: Protocol Last Admin: 11/20/16 13:40 Dose: 5,000 units Iron Sucrose 100 mg/ Sodium (Chloride) 105 mls @ 105 mls/hr IV TTS [facility] Last Admin: 11/18/16 15:36 Dose: 105 mls/hr Insulin Human Regular (Humulin R) 0 units SC ACHS [facility] PRN Reason: Protocol Last Admin: 11/20/16 17:07 Dose: 1 unit Latanoprost (Xalatan Opht) 1 drop OU HS [facility] Last Admin: 11/19/16 21:34 Dose: 1 drop Levothyroxine Sodium (Synthroid) 100 mcg PO DAILY@0630 [facility] Last Admin: 11/20/16 06:22 Dose: 100 mcg Nitroglycerin (Nitrostat Sl Tab) 0.4 mg SL Q5MIN PRN PRN Reason: Other (CHEST PAIN) Pantoprazole Sodium (Protonix Susp) 40 mg PO DAILY [facility] Last Admin: 11/20/16 08:57 Dose: 40 mg Tamsulosin HCl (Flomax) 0.4 mg PO HS@2200 [facility] Last Admin: 11/19/16 21:06 Dose: 0.4 mg Vitamin B Complex/Vit C/Folic Acid (Nephro-Prosper) 1 tab PO DAILY [facility] Last Admin: 11/20/16 08:57 Dose: 1 tab - Labs Labs: 11/14/16 06:40 11/14/16 06:40 PT 13.3 SECONDS (9.6-11.2) H 11/10/16 07:05 INR 1.28 (0.92-1.08) H 11/10/16 07:05 APTT 38.5 SECONDS (23.3-32.5) H 11/10/16 07:05 Assessment and Plan - Assessment and Plan (Free Text) Assessment: ESRD ON HD T T S URINARY RETENTION .. HAS KEN MULTIPLE CO MORBIDITIES CVA ON PT C/O CURRENT CARE
[2016-11-20] MEDS: Latanoprost 0.005% Opht SOUTION OU SCH (21:39)
[2016-11-21] MEDS: Levothyroxine 100 MCG TAB PO SCH (06:08)
[2016-11-21] MEDS: Insulin Regular 100 units/ml SC SCH ×4 (06:32→22:37)
[2016-11-21 07:37] LABS: ALB/GLOB RATIO 0.8 (1.0-2.1); BILIRUBIN,TOTAL 0.3 mg/dl (0.2-1.3); CALCIUM 7.7 mg/dL (8.4-10.2); TOTAL PROTEIN 7.1 G/DL (6.3-8.2)
[2016-11-21 07:45] LABS: BASO # 0.1 K/uL (0.0-0.2); BASO % 0.8 % (0.0-2.0); EOS # 0.4 K/uL (0.0-0.7); EOS % 6.2 % (0.0-4.0); HEMATOCRIT 32.6 % (35.0-51.0); LYMPH # 2.5 K/uL (1.0-4.3); LYMPH % 35.1 % (20.0-40.0); MEAN CELL VOLUME 91.2 fl (80.0-94.0); MEAN CORPUSCULAR HEMOGLOBIN 29.2 pg (27.0-31.0); MEAN PLATELET VOLUME 7.6 fl (7.2-11.7); MONO # 0.9 K/uL (0.0-0.8); MONO % 13.3 % (0.0-10.0); NEUT # 3.2 K/uL (1.8-7.0); NEUT % 44.6 % (50.0-75.0); NRBC % 0.1 % (0.0-0.0); RED CELL DISTRIBUTION WIDTH 16.5 % (11.5-14.5); WHITE BLOOD COUNT 7.1 K/uL (4.8-10.8)
[2016-11-21] MEDS: Multivitamin Vitamin B Complex (Nephro-Vite) Tab PO SCH (08:59)
[2016-11-21] MEDS: Pantoprazole 40 mg Susp UD PO SCH (09:00)
[2016-11-21] MEDS: Dorzolamide 2% Ophth Soln OU SCH ×2 (09:00→22:27)
--- NOTE | 2016-11-21 16:34 | CP.PCM.PN ---
Subjective - Date & Time of Evaluation Date of Evaluation: 11/21/16 Time of Evaluation: 14:00 - Subjective Subjective: SEEN ON RENAL F/U SEEN ON HD FEELS IMPROVED Objective - Vital Signs/Intake and Output Vital Signs (last 24 hours): Temp Pulse Resp BP Pulse Ox 97.7 F 67 18 138/68 99 11/21/16 16:11 11/21/16 16:11 11/21/16 16:11 11/21/16 16:11 11/21/16 16:11 Intake and Output: 11/21/16 11/21/16 06:59 18:59 Intake Total 400 Output Total 310 Balance 90 - Medications Medications: Current Medications Acetaminophen (Tylenol 325mg Tab) 650 mg PO Q6 PRN PRN Reason: Pain 4-10 Ascorbic Acid (Vitamin C 500 Mg Tab) 500 mg PO DAILY [facility] Last Admin: 11/21/16 09:00 Dose: 500 mg Aspirin (Aspirin Chewable) 81 mg PO DAILY [facility] Last Admin: 11/21/16 08:59 Dose: 81 mg Atorvastatin Calcium (Lipitor) 20 mg PO DAILY@2100 [facility] Last Admin: 11/20/16 21:23 Dose: 20 mg Carvedilol (Coreg) 12.5 mg PO Q12@0900,2100 [facility] Last Admin: 11/21/16 11:38 Dose: Not Given Clopidogrel Bisulfate (Plavix) 75 mg PO DAILY [facility] Last Admin: 11/21/16 09:00 Dose: 75 mg Donepezil HCl (Aricept) 5 mg PO HS [facility] Last Admin: 11/20/16 21:30 Dose: 5 mg Dorzolamide HCl (Trusopt) 1 drop OU 0900,2200 [facility] Last Admin: 11/21/16 09:00 Dose: 1 drop Epoetin Tyrone (Procrit) 10,000 unit IV TTS [facility] Last Admin: 11/18/16 14:06 Dose: 10,000 unit Ergocalciferol (Drisdol 50,000 Intl Units Cap) 1 cap PO LEONIDAS [facility] Last Admin: 11/16/16 08:39 Dose: 1 cap Finasteride (Proscar) 5 mg PO DAILY [facility] Last Admin: 11/21/16 09:01 Dose: 5 mg Gabapentin (Neurontin) 100 mg PO TID [facility] Last Admin: 11/21/16 13:00 Dose: 100 mg Gentamicin Sulfate (Gentamicin 0.1%) 1 applic TOP DAILY@0600 [facility] Last Admin: 11/21/16 06:06 Dose: 1 applic Heparin Sodium (Porcine) (Heparin) 5,000 units SC Q8 [facility] PRN Reason: Protocol Last Admin: 11/21/16 14:24 Dose: 5,000 units Iron Sucrose 100 mg/ Sodium (Chloride) 105 mls @ 105 mls/hr IV TTS [facility] Last Admin: 11/18/16 15:36 Dose: 105 mls/hr Insulin Human Regular (Humulin R) 0 units SC ACHS [facility] PRN Reason: Protocol Last Admin: 11/21/16 12:11 Dose: 2 unit Latanoprost (Xalatan Opht) 1 drop OU HS [facility] Last Admin: 11/20/16 21:39 Dose: 1 drop Levothyroxine Sodium (Synthroid) 100 mcg PO DAILY@0630 [facility] Last Admin: 11/21/16 06:08 Dose: 100 mcg Nitroglycerin (Nitrostat Sl Tab) 0.4 mg SL Q5MIN PRN PRN Reason: Other (CHEST PAIN) Pantoprazole Sodium (Protonix Susp) 40 mg PO DAILY [facility] Last Admin: 11/21/16 09:00 Dose: 40 mg Tamsulosin HCl (Flomax) 0.4 mg PO HS@2200 [facility] Last Admin: 11/20/16 21:30 Dose: 0.4 mg Vitamin B Complex/Vit C/Folic Acid (Nephro-Prosper) 1 tab PO DAILY [facility] Last Admin: 11/21/16 08:59 Dose: 1 tab - Labs Labs: 11/21/16 06:40 11/21/16 06:40 PT 13.3 SECONDS (9.6-11.2) H 11/10/16 07:05 INR 1.28 (0.92-1.08) H 11/10/16 07:05 APTT 38.5 SECONDS (23.3-32.5) H 11/10/16 07:05 Assessment and Plan - Assessment and Plan (Free Text) Assessment: ESRD ON HD T T S ANEMIA OF CKD .. H/H STABLE CVA ON PT C/O CURRENT CARE C/O CURRENT MANAGEMENT
--- NOTE | 2016-11-21 18:43 | CP.PCM.PN ---
Subjective - Date & Time of Evaluation Date of Evaluation: 11/21/16 Time of Evaluation: 13:00 - Subjective Subjective: Patient in room NAD limited improvement at this point team conference is set for tomorrow continue current care Objective - Vital Signs/Intake and Output Vital Signs (last 24 hours): Temp Pulse Resp BP Pulse Ox 97.7 F 67 18 119/64 99 11/21/16 16:11 11/21/16 16:11 11/21/16 16:11 11/21/16 16:22 11/21/16 16:11 Intake and Output: 11/21/16 11/21/16 06:59 18:59 Intake Total 400 Output Total 310 Balance 90 - Medications Medications: Current Medications Acetaminophen (Tylenol 325mg Tab) 650 mg PO Q6 PRN PRN Reason: Pain 4-10 Ascorbic Acid (Vitamin C 500 Mg Tab) 500 mg PO DAILY [facility] Last Admin: 11/21/16 09:00 Dose: 500 mg Aspirin (Aspirin Chewable) 81 mg PO DAILY [facility] Last Admin: 11/21/16 08:59 Dose: 81 mg Atorvastatin Calcium (Lipitor) 20 mg PO DAILY@2100 [facility] Last Admin: 11/20/16 21:23 Dose: 20 mg Carvedilol (Coreg) 12.5 mg PO Q12@0900,2100 [facility] Last Admin: 11/21/16 11:38 Dose: Not Given Clopidogrel Bisulfate (Plavix) 75 mg PO DAILY [facility] Last Admin: 11/21/16 09:00 Dose: 75 mg Donepezil HCl (Aricept) 5 mg PO HS [facility] Last Admin: 11/20/16 21:30 Dose: 5 mg Dorzolamide HCl (Trusopt) 1 drop OU 00,2200 [facility] Last Admin: 11/21/16 09:00 Dose: 1 drop Epoetin Tyrone (Procrit) 10,000 unit IV TTS [facility] Last Admin: 11/18/16 14:06 Dose: 10,000 unit Ergocalciferol (Drisdol 50,000 Intl Units Cap) 1 cap PO LEONIDAS [facility] Last Admin: 11/16/16 08:39 Dose: 1 cap Finasteride (Proscar) 5 mg PO DAILY [facility] Last Admin: 11/21/16 09:01 Dose: 5 mg Gabapentin (Neurontin) 100 mg PO TID [facility] Last Admin: 11/21/16 13:00 Dose: 100 mg Gentamicin Sulfate (Gentamicin 0.1%) 1 applic TOP DAILY@0600 [facility] Last Admin: 11/21/16 06:06 Dose: 1 applic Heparin Sodium (Porcine) (Heparin) 5,000 units SC Q8 [facility] PRN Reason: Protocol Last Admin: 11/21/16 14:24 Dose: 5,000 units Iron Sucrose 100 mg/ Sodium (Chloride) 105 mls @ 105 mls/hr IV TTS [facility] Last Admin: 11/18/16 15:36 Dose: 105 mls/hr Insulin Human Regular (Humulin R) 0 units SC ACHS [facility] PRN Reason: Protocol Last Admin: 11/21/16 17:04 Dose: Not Given Latanoprost (Xalatan Opht) 1 drop OU HS [facility] Last Admin: 11/20/16 21:39 Dose: 1 drop Levothyroxine Sodium (Synthroid) 100 mcg PO DAILY@0630 [facility] Last Admin: 11/21/16 06:08 Dose: 100 mcg Nitroglycerin (Nitrostat Sl Tab) 0.4 mg SL Q5MIN PRN PRN Reason: Other (CHEST PAIN) Pantoprazole Sodium (Protonix Susp) 40 mg PO DAILY [facility] Last Admin: 11/21/16 09:00 Dose: 40 mg Tamsulosin HCl (Flomax) 0.4 mg PO HS@2200 [facility] Last Admin: 11/20/16 21:30 Dose: 0.4 mg Vitamin B Complex/Vit C/Folic Acid (Nephro-Prosper) 1 tab PO DAILY [facility] Last Admin: 11/21/16 08:59 Dose: 1 tab - Labs Labs: 11/21/16 06:40 11/21/16 06:40 PT 13.3 SECONDS (9.6-11.2) H 11/10/16 07:05 INR 1.28 (0.92-1.08) H 11/10/16 07:05 APTT 38.5 SECONDS (23.3-32.5) H 11/10/16 07:05
[2016-11-21] MEDS: EPOETIN ALFA 10,000 UNIT/ML ML IV SCH (20:58)
[2016-11-21] MEDS: Latanoprost 0.005% Opht SOUTION OU SCH (22:34)
[2016-11-22] MEDS: Levothyroxine 100 MCG TAB PO SCH (06:49)
[2016-11-22] MEDS: Insulin Regular 100 units/ml SC SCH ×4 (07:01→21:53)
[2016-11-22] MEDS: Multivitamin Vitamin B Complex (Nephro-Vite) Tab PO SCH (09:17)
[2016-11-22] MEDS: Pantoprazole 40 mg Susp UD PO SCH (09:17)
[2016-11-22] MEDS: Dorzolamide 2% Ophth Soln OU SCH ×2 (09:18→21:35)
--- NOTE | 2016-11-22 11:30 | CP.PCM.PN ---
Subjective - Date & Time of Evaluation Date of Evaluation: 11/22/16 Time of Evaluation: 10:30 - Subjective Subjective: Pt seen and examined. Still with on and off orthostatic hypotension although asymptomatic during therapy. Objective - Vital Signs/Intake and Output Vital Signs (last 24 hours): Temp Pulse Resp BP Pulse Ox 98.2 F 60 20 118/68 99 11/21/16 20:11 11/22/16 09:18 11/21/16 20:11 11/22/16 09:18 11/21/16 16:11 Intake and Output: 11/22/16 11/22/16 06:59 18:59 Intake Total 150 Output Total 550 Balance -400 - Medications Medications: Current Medications Acetaminophen (Tylenol 325mg Tab) 650 mg PO Q6 PRN PRN Reason: Pain 4-10 Ascorbic Acid (Vitamin C 500 Mg Tab) 500 mg PO DAILY [facility] Last Admin: 11/22/16 09:17 Dose: 500 mg Aspirin (Aspirin Chewable) 81 mg PO DAILY [facility] Last Admin: 11/22/16 09:17 Dose: 81 mg Atorvastatin Calcium (Lipitor) 20 mg PO DAILY@2100 [facility] Last Admin: 11/21/16 22:18 Dose: 20 mg Carvedilol (Coreg) 12.5 mg PO Q12@0900,2100 [facility] Last Admin: 11/22/16 09:18 Dose: Not Given Clopidogrel Bisulfate (Plavix) 75 mg PO DAILY [facility] Last Admin: 11/22/16 09:17 Dose: 75 mg Donepezil HCl (Aricept) 5 mg PO HS [facility] Last Admin: 11/21/16 22:19 Dose: 5 mg Dorzolamide HCl (Trusopt) 1 drop OU 0900,2200 [facility] Last Admin: 11/22/16 09:18 Dose: 1 drop Epoetin Tyrone (Procrit) 10,000 unit IV TTS [facility] Last Admin: 11/21/16 20:58 Dose: 10,000 unit Ergocalciferol (Drisdol 50,000 Intl Units Cap) 1 cap PO LEONIDAS [facility] Last Admin: 11/16/16 08:39 Dose: 1 cap Finasteride (Proscar) 5 mg PO DAILY [facility] Last Admin: 11/22/16 09:18 Dose: 5 mg Gabapentin (Neurontin) 100 mg PO TID [facility] Last Admin: 11/22/16 09:17 Dose: 100 mg Gentamicin Sulfate (Gentamicin 0.1%) 1 applic TOP DAILY@0600 [facility] Last Admin: 11/22/16 06:49 Dose: 1 applic Heparin Sodium (Porcine) (Heparin) 5,000 units SC Q8 [facility] PRN Reason: Protocol Last Admin: 11/22/16 06:45 Dose: 5,000 units Iron Sucrose 100 mg/ Sodium (Chloride) 105 mls @ 105 mls/hr IV TTS [facility] Last Admin: 11/21/16 19:48 Dose: 105 mls/hr Insulin Human Regular (Humulin R) 0 units SC ACHS [facility] PRN Reason: Protocol Last Admin: 11/22/16 07:01 Dose: Not Given Latanoprost (Xalatan Opht) 1 drop OU HS [facility] Last Admin: 11/21/16 22:34 Dose: 1 drop Levothyroxine Sodium (Synthroid) 100 mcg PO DAILY@0630 [facility] Last Admin: 11/22/16 06:49 Dose: 100 mcg Nitroglycerin (Nitrostat Sl Tab) 0.4 mg SL Q5MIN PRN PRN Reason: Other (CHEST PAIN) Pantoprazole Sodium (Protonix Susp) 40 mg PO DAILY [facility] Last Admin: 11/22/16 09:17 Dose: 40 mg Tamsulosin HCl (Flomax) 0.4 mg PO HS@2200 [facility] Last Admin: 11/21/16 22:18 Dose: 0.4 mg Vitamin B Complex/Vit C/Folic Acid (Nephro-Prosper) 1 tab PO DAILY [facility] Last Admin: 11/22/16 09:17 Dose: 1 tab - Labs Labs: 11/21/16 06:40 11/21/16 06:40 PT 13.3 SECONDS (9.6-11.2) H 11/10/16 07:05 INR 1.28 (0.92-1.08) H 11/10/16 07:05 APTT 38.5 SECONDS (23.3-32.5) H 11/10/16 07:05 - Constitutional Appears: No Acute Distress - Head Exam Head Exam: ATRAUMATIC - Eye Exam Eye Exam: absent: Scleral icterus - ENT Exam ENT Exam: Mucous Membranes Dry - Neck Exam Neck Exam: absent: Meningismus - Respiratory Exam Respiratory Exam: absent: Wheezes, Respiratory Distress - Cardiovascular Exam Cardiovascular Exam: REGULAR RHYTHM, +S1, +S2 - GI/Abdominal Exam GI & Abdominal Exam: Soft. absent: Tenderness - Rectal Exam Rectal Exam: Deferred - Neurological Exam Neurological Exam: Alert, Oriented x3 - Psychiatric Exam Psychiatric exam: Normal Affect - Skin Skin Exam: Dry, Intact Assessment and Plan - Assessment and Plan (Free Text) Assessment: 61 yo male with history of HTN, CAD, ESRD (on HD), DM2 and previous [place] [facility] [place] for Acute CVA with right sided weakness to Acute rehab for continuation of PT/OT. (1) CVA (cerebrovascular accident) continue PT/OT continue ASA and Lipitor maintain BP control (2) CAD (coronary artery disease) continue ASA, Plavix, Lipitor and Coreg (3) HTN (hypertension) continue to have orthostatic hypotension reduce Coreg to 6.25mg PO q 12hrs monitor BP (4) ESRD (end stage renal disease) on dialysis Creat was 7.7 pre-dialysis yesterday follow up BMP (5) History of urinary retention chaparro catheter intact with 100cc of urine in 2hrs not sure if we still need Flomax and Avodart with indwelling catheter (6) Anemia in chronic kidney disease (CKD) Procrit 10,000 IV Hsks-Qkbme-Sye Iron 100 mg IV Loxc-Ivlpq-Gyh (7) Hypothyroid Levothyroxine 100 mcg PO daily (8) Prophylactic measure Heparin 5,000 Units SQ Q8H Protonix 40 mg PO daily
[2016-11-22 12:06] LABS: CALCIUM 8.2 mg/dL (8.4-10.2); POTASSIUM 4.5 MMOL/L (3.6-5.0)
--- NOTE | 2016-11-22 12:10 | PSY.TMCNF ---
Nursing - Vital Signs Vital Signs (Last 8 hours): Vital Signs 11/22/16 11/22/16 09:18 10:00 Temperature 97.9 F Pulse Rate 60 Respiratory 20 Rate Blood Pressure 118/68 O2 Sat by Pulse 96 Oximetry Pain: 0 - Precautions: Precautions: Fall Prevention, Aspiration - Medications/Other Issues Comment: Pt is at moderate nutritional risk. Goals-. 1. Pt to consume 75-100 % of meals(met, continue). 2. Blood glucoses to be between 70-180 mg/dl( partially met, continue). 3. K+ WNL(met, continue). Follow-up due by 2016. - Consults Comment: Dr. Romero, Dr. Tracy, Dr. Jain - Toileting Toileting: Maximal Assistance - Bladder Management Bladder Pattern: Retention Voiding Method: Indwelling Catheter - Bowel Management Bowel Pattern: Constipated Bowel Management: Maximal Assistance Frequency of Accidents: 0 - Transfers Transfers: Maximal Assistance - ADL's ADL's: Moderate Assistance - Patient/Family Teaching Comments: Care post CVA and safety precautions. Urinary retention. - Goals/Time Frame Comments: Per multidisciplinary care plans and goals Physical Therapy - Bed Mobility Bed Mobility: Verbal Cues, Moderate Assistance - Transfers Wheelchair to Mat: Verbal Cues, Moderate Assistance, Maximum Assistance Sit to Stand: Verbal Cues, Maximum Assistance - Ambulation Level of Assistance: Not Tested - Stair Negotiation Stairs: Level of Assistance: Not Tested - Standing Balance Static Stand: Maximal Assistance Dynamic Stand: Unable to assess/perform - Pain Pain (assessed during therapy session): 0 - Insight/Carryover Insight/Carryover: Good - Patient/Family Education Comment: Pt education for stroke recovery, POC, OT goals, ADLs, tranfsers, UE management, and safety awareness. - Assessment/Plan Assessment: Pt continues to participate in 1:1 and group recreation therapy sessions. Pt participated in bingo task with peers and socialized with peers and was independent with task after setup. Pt also participated in go-fish card task and required min-mod verbal cues for carryover of task rules. Pt has demonstrated improvement in speech intelligbility although slurred at times. Pt initiates conversations and is agreeable to participate in sessions. Pt will continue to benefit from recreation therapy to improve recalling facts on demand , direction following, leisure awareness level, and arousal level. - Goals Timeframe: 2 weeks Goals: Will complete bed mobility with minimal assistance. Will complete lower body dressing with moderate assistance. Will complete upper body dressing with incidental assistance. Will complete self grooming with HI. Will complete self feeding with HI. Will complete squat pivot transfers with minimal assistance - Provider License Number: [id number] Occupational Therapy - Arousal/Attention/Orientation Patient Orientation: Person, Place - ADL/IADL Self Feeding: Supervision, Set-up Help Grooming: Supervision, Set-up Help Bathing-Upper Extremity: Maximum Assistance Bathing-Lower Extremity: Dependent Dressing-Upper Extremity: Maximum Assistance Dressing-Lower Extremity: Maximum Assistance - Sitting Balance Static Sitting: Supervision Dynamic Sitting: Unable to assess/perform - Transfers Wheelchair to Bed Transfers: Moderate Assistance, Maximum Assistance Comment: To assess toileting and bathing tranfsers in future sessions. - Wheelchair Management Level of Assistance: Minimal Assistance Distance (ft.): 25 - Upper Extremity Status Right Upper Extremity Comment: RUE AROM WFL t/o Left Upper Extremity Comment: LUE no AROM t/o. Pt noted with 1.5 finger sublux inferiorly. Pt PROM WFL - Pain Pain (assessed during therapy session): 0 - Insight/Carryover Insight/Carryover: Good - Patient/Family Education Comment: Pt education for stroke recovery, POC, OT goals, ADLs, tranfsers, UE management, and safety awareness. - Assessment/Plan Assessment: Pt continues to participate in 1:1 and group recreation therapy sessions. Pt participated in bingo task with peers and socialized with peers and was independent with task after setup. Pt also participated in go-fish card task and required min-mod verbal cues for carryover of task rules. Pt has demonstrated improvement in speech intelligbility although slurred at times. Pt initiates conversations and is agreeable to participate in sessions. Pt will continue to benefit from recreation therapy to improve recalling facts on demand , direction following, leisure awareness level, and arousal level. - Goals Timeframe: 2 weeks Goals: Will complete bed mobility with minimal assistance. Will complete lower body dressing with moderate assistance. Will complete upper body dressing with incidental assistance. Will complete self grooming with HI. Will complete self feeding with HI. Will complete squat pivot transfers with minimal assistance - Provider Therapist: radha mccoy License Number: [id number] Speech Therapy - Consult Information Patient on Program: Yes Medical Diagnosis: CVA Treatment Diagnosis: -moderate dysarthria. -mild dysphagia. -mild cognitive- linguistic deficits - Assessment Memory Impairment: Mild Speech/Articulation Impairment: Moderate Dysphagia/Swallowing Impairment: Mild - Plan Assessment: Pt continues to participate in 1:1 and group recreation therapy sessions. Pt participated in bingo task with peers and socialized with peers and was independent with task after setup. Pt also participated in go-fish card task and required min-mod verbal cues for carryover of task rules. Pt has demonstrated improvement in speech intelligbility although slurred at times. Pt initiates conversations and is agreeable to participate in sessions. Pt will continue to benefit from recreation therapy to improve recalling facts on demand , direction following, leisure awareness level, and arousal level. - Provider Therapist: Sherrill Mccarty License Number: [id number] Recreational Therapy - Participation Participation: Participates in Individual and/or Group Sessions - Attendance Attendance: 3-5 times per week - Activities Leisure Activities: Cards and Games - Socialization Level of Socialization: Initiates/interacts freely with care givers and peer - Diversional Time Diversional Time: television - Assessment Assessment/Plan: Pt continues to participate in 1:1 and group recreation therapy sessions. Pt participated in bingo task with peers and socialized with peers and was independent with task after setup. Pt also participated in go- fish card task and required min-mod verbal cues for carryover of task rules. Pt has demonstrated improvement in speech intelligbility although slurred at times. Pt initiates conversations and is agreeable to participate in sessions. Pt will continue to benefit from recreation therapy to improve recalling facts on demand, direction following, leisure awareness level, and arousal level. Problems Currently Limiting Participation: decrease leisure awareness level, L side weakness, slurred/mumbled speech at times Goals and Time Frame: Pt will be encouraged to participate in 1:1 and group recreation therapy sessions 3-5x week to improve arousal level, diversion level , recalling facts on demand, direction following level, attention to task level , and leisure awareness level. - Provider Therapist: Isa Sosa, RADAR SYSTEMS ENGINEER #[id number] Nutrition - Current Diet Current Diet/ Supplement/ Feedings: Renal dialysis, 2 gm Na, 3 gm K+, 90 gm protein, moderate consistent CHO, low fat/cholesterol, mech altered (finely chop ) diet with nectar thick diet and 1000 mL fluid restriction. - Appetite Percent Meal Consumed: 75-100% - Comments Comments: Care post CVA and safety precautions. Urinary retention. - Assessment/Goals/Time Frame Assessment/Goals/Time Frame: Pt is at moderate nutritional risk. Goals-. 1. Pt to consume 75-100% of meals(met, continue). 2. Blood glucoses to be between 70-180 mg/dl(partially met, continue). 3. K+ WNL(met, continue). Follow-up due by 11/29/2016. - Provider Provider: Juliana Jean-Baptiste MS, RD Case Management - Psychosocial Assessment Support Systems: Resides with son and daughter. Son Nadeem díaz [phone] Psychological Interventions/Needs: Pt is alert and oriented, improved participation in therapy - with speech impairment Discharge Concerns: Pt resides in a 1 family home with 7 stairs to enter and which patient owns - pt may require terminal supervisor care and may be ineligible for Medicaid. Pt's son and daughter work time clock repairer and unable to care for pt at home. Son reports home is very small and unable to accomodate wchr. Patient/Family Meeting: CM spoke with pt and rehab team Intervention/Goal/Outcome:: 1. Tentative d/c 12/03 [facility] - facilities provided to pt's son - Pt's first preference is [facility]. 2. Goal: min assist ADL's Xfers /Mod I for wchr mgmt. 3. Will reach out to son to further discuss d/c plan. 4. Pt has been secured an outpatient H/D slot MWF at [facility] with a tentative start date of 12/01/16 depending on when/where pt is discharged (coordinator Sulema [phone]) - Discharge Plan Discharge Plan: Subacute care - Provider Provider: Alejandrina Oliveira MSW, LEAD FIRE PROTECTION ENGINEER License Number: [id number] Rehabilitation Plan - Treatment Plan Treatment Plan: Physical Therapy, Occupational Therapy, Speech, Dietary, Patient /Family Education - Discharge Plan Estimated Date of Discharge: 12/03/16 Discharge to: Subacute
--- NOTE | 2016-11-22 13:36 | CP.PCM.PN ---
Subjective - Date & Time of Evaluation Date of Evaluation: 11/22/16 Time of Evaluation: 13:00 - Subjective Subjective: SEEN ON RENAL F/U ON HD T T S FEELS IMPROVED LABS BETTER ALL PREVIOUS EMR REVIEWED Objective - Vital Signs/Intake and Output Vital Signs (last 24 hours): Temp Pulse Resp BP Pulse Ox 97.9 F 60 20 118/68 96 11/22/16 10:00 11/22/16 09:18 11/22/16 10:00 11/22/16 09:18 11/22/16 10:00 Intake and Output: 11/22/16 11/22/16 06:59 18:59 Intake Total 150 Output Total 550 Balance -400 - Medications Medications: Current Medications Acetaminophen (Tylenol 325mg Tab) 650 mg PO Q6 PRN PRN Reason: Pain 4-10 Ascorbic Acid (Vitamin C 500 Mg Tab) 500 mg PO DAILY [facility] Last Admin: 11/22/16 09:17 Dose: 500 mg Aspirin (Aspirin Chewable) 81 mg PO DAILY [facility] Last Admin: 11/22/16 09:17 Dose: 81 mg Atorvastatin Calcium (Lipitor) 20 mg PO DAILY@2100 [facility] Last Admin: 11/21/16 22:18 Dose: 20 mg Carvedilol (Coreg) 6.25 mg PO Q12@0900,2100 [facility] Clopidogrel Bisulfate (Plavix) 75 mg PO DAILY [facility] Last Admin: 11/22/16 09:17 Dose: 75 mg Donepezil HCl (Aricept) 5 mg PO HS [facility] Last Admin: 11/21/16 22:19 Dose: 5 mg Dorzolamide HCl (Trusopt) 1 drop OU 0900,2200 [facility] Last Admin: 11/22/16 09:18 Dose: 1 drop Epoetin Tyrone (Procrit) 10,000 unit IV TTS [facility] Last Admin: 11/21/16 20:58 Dose: 10,000 unit Ergocalciferol (Drisdol 50,000 Intl Units Cap) 1 cap PO LEONIDAS [facility] Last Admin: 11/16/16 08:39 Dose: 1 cap Finasteride (Proscar) 5 mg PO DAILY [facility] Last Admin: 11/22/16 09:18 Dose: 5 mg Gabapentin (Neurontin) 100 mg PO TID [facility] Last Admin: 11/22/16 12:27 Dose: 100 mg Gentamicin Sulfate (Gentamicin 0.1%) 1 applic TOP DAILY@0600 [facility] Last Admin: 11/22/16 06:49 Dose: 1 applic Heparin Sodium (Porcine) (Heparin) 5,000 units SC Q8 [facility] PRN Reason: Protocol Last Admin: 11/22/16 06:45 Dose: 5,000 units Iron Sucrose 100 mg/ Sodium (Chloride) 105 mls @ 105 mls/hr IV TTS [facility] Last Admin: 11/21/16 19:48 Dose: 105 mls/hr Insulin Human Regular (Humulin R) 0 units SC ACHS [facility] PRN Reason: Protocol Last Admin: 11/22/16 12:26 Dose: 2 unit Latanoprost (Xalatan Opht) 1 drop OU HS [facility] Last Admin: 11/21/16 22:34 Dose: 1 drop Levothyroxine Sodium (Synthroid) 100 mcg PO DAILY@0630 [facility] Last Admin: 11/22/16 06:49 Dose: 100 mcg Nitroglycerin (Nitrostat Sl Tab) 0.4 mg SL Q5MIN PRN PRN Reason: Other (CHEST PAIN) Pantoprazole Sodium (Protonix Susp) 40 mg PO DAILY [facility] Last Admin: 11/22/16 09:17 Dose: 40 mg Tamsulosin HCl (Flomax) 0.4 mg PO HS@2200 [facility] Last Admin: 11/21/16 22:18 Dose: 0.4 mg Vitamin B Complex/Vit C/Folic Acid (Nephro-Prosper) 1 tab PO DAILY [facility] Last Admin: 11/22/16 09:17 Dose: 1 tab - Labs Labs: 11/21/16 06:40 11/22/16 11:20 PT 13.3 SECONDS (9.6-11.2) H 11/10/16 07:05 INR 1.28 (0.92-1.08) H 11/10/16 07:05 APTT 38.5 SECONDS (23.3-32.5) H 11/10/16 07:05 Assessment and Plan - Assessment and Plan (Free Text) Assessment: ESRD ON HD T T S ANEMIA OF CKD .. H/H BETTER C/O CURRENT CARE
--- NOTE | 2016-11-22 17:25 | CP.PCM.PN ---
Subjective - Date & Time of Evaluation Date of Evaluation: 11/22/16 Time of Evaluation: 17:24 - Subjective Subjective: Patient seen in room denies pain concerned of the left HP and discussed again regarding the severity of the CVA he understood, but still there is some disconnect continue current care Objective - Vital Signs/Intake and Output Vital Signs (last 24 hours): Temp Pulse Resp BP Pulse Ox 97.5 F L 69 19 139/61 97 11/22/16 16:55 11/22/16 16:55 11/22/16 16:55 11/22/16 16:55 11/22/16 16:55 Intake and Output: 11/22/16 11/22/16 06:59 18:59 Intake Total 150 Output Total 550 Balance -400 - Medications Medications: Current Medications Acetaminophen (Tylenol 325mg Tab) 650 mg PO Q6 PRN PRN Reason: Pain 4-10 Ascorbic Acid (Vitamin C 500 Mg Tab) 500 mg PO DAILY [facility] Last Admin: 11/22/16 09:17 Dose: 500 mg Aspirin (Aspirin Chewable) 81 mg PO DAILY [facility] Last Admin: 11/22/16 09:17 Dose: 81 mg Atorvastatin Calcium (Lipitor) 20 mg PO DAILY@2100 [facility] Last Admin: 11/21/16 22:18 Dose: 20 mg Carvedilol (Coreg) 6.25 mg PO Q12@0900,2100 [facility] Clopidogrel Bisulfate (Plavix) 75 mg PO DAILY [facility] Last Admin: 11/22/16 09:17 Dose: 75 mg Donepezil HCl (Aricept) 5 mg PO HS [facility] Last Admin: 11/21/16 22:19 Dose: 5 mg Dorzolamide HCl (Trusopt) 1 drop OU 0900,2200 [facility] Last Admin: 11/22/16 09:18 Dose: 1 drop Epoetin Tyrone (Procrit) 10,000 unit IV TTS [facility] Last Admin: 11/21/16 20:58 Dose: 10,000 unit Ergocalciferol (Drisdol 50,000 Intl Units Cap) 1 cap PO LEONIDAS [facility] Last Admin: 11/16/16 08:39 Dose: 1 cap Finasteride (Proscar) 5 mg PO DAILY [facility] Last Admin: 11/22/16 09:18 Dose: 5 mg Gabapentin (Neurontin) 100 mg PO TID [facility] Last Admin: 11/22/16 12:27 Dose: 100 mg Gentamicin Sulfate (Gentamicin 0.1%) 1 applic TOP DAILY@0600 [facility] Last Admin: 11/22/16 06:49 Dose: 1 applic Heparin Sodium (Porcine) (Heparin) 5,000 units SC Q8 [facility] PRN Reason: Protocol Last Admin: 11/22/16 13:36 Dose: 5,000 units Iron Sucrose 100 mg/ Sodium (Chloride) 105 mls @ 105 mls/hr IV TTS [facility] Last Admin: 11/21/16 19:48 Dose: 105 mls/hr Insulin Human Regular (Humulin R) 0 units SC ACHS [facility] PRN Reason: Protocol Last Admin: 11/22/16 17:01 Dose: 1 unit Latanoprost (Xalatan Opht) 1 drop OU HS [facility] Last Admin: 11/21/16 22:34 Dose: 1 drop Levothyroxine Sodium (Synthroid) 100 mcg PO DAILY@0630 [facility] Last Admin: 11/22/16 06:49 Dose: 100 mcg Nitroglycerin (Nitrostat Sl Tab) 0.4 mg SL Q5MIN PRN PRN Reason: Other (CHEST PAIN) Pantoprazole Sodium (Protonix Susp) 40 mg PO DAILY [facility] Last Admin: 11/22/16 09:17 Dose: 40 mg Tamsulosin HCl (Flomax) 0.4 mg PO HS@2200 [facility] Last Admin: 11/21/16 22:18 Dose: 0.4 mg Vitamin B Complex/Vit C/Folic Acid (Nephro-Prosper) 1 tab PO DAILY [facility] Last Admin: 11/22/16 09:17 Dose: 1 tab - Labs Labs: 11/21/16 06:40 11/22/16 11:20 PT 13.3 SECONDS (9.6-11.2) H 11/10/16 07:05 INR 1.28 (0.92-1.08) H 11/10/16 07:05 APTT 38.5 SECONDS (23.3-32.5) H 11/10/16 07:05
[2016-11-22] MEDS: Latanoprost 0.005% Opht SOUTION OU SCH (21:49)
[2016-11-23] MEDS: Levothyroxine 100 MCG TAB PO SCH (06:46)
[2016-11-23] MEDS: Insulin Regular 100 units/ml SC SCH ×4 (06:47→22:26)
[2016-11-23] MEDS: Pantoprazole 40 mg Susp UD PO SCH (08:54)
[2016-11-23] MEDS: Dorzolamide 2% Ophth Soln OU SCH ×2 (08:54→21:39)
[2016-11-23] MEDS: Multivitamin Vitamin B Complex (Nephro-Vite) Tab PO SCH (08:54)
[2016-11-23] MEDS: Ergocalciferol 50,000 Intl Units Cap PO SCH (08:55)
[2016-11-23] MEDS ORDERED: Barium Sulfate Susp 0.1% w/v, 0.1% w/w 450 mL Bottle PO ONE (09:10)
--- NOTE | 2016-11-23 10:58 | RAD ---
PROCEDURE: Modified barium swallow study. HISTORY: stroke COMPARISON: None available. TECHNIQUE: Under fluoroscopic guidance, barium meals of various consistency were administered to the patient by the speech pathologist. FINDINGS: The study demonstrates penetration with thin liquid which resolved by chin down maneuver. No aspiration was observed during this study. IMPRESSION: Penetration with thin liquid resolved by chin down maneuver. No evidence of aspiration. Please refer to the detailed report and recommendations of the speech pathologist.
[2016-11-23] MEDS: EPOETIN ALFA 10,000 UNIT/ML ML IV SCH (17:05)
--- NOTE | 2016-11-23 18:30 | CP.PCM.PN ---
Subjective - Date & Time of Evaluation Date of Evaluation: 11/23/16 Time of Evaluation: 18:30 - Subjective Subjective: Patient seen in room getting HD no WILSON or CP afebrile minimal return and limited function continue current care Objective - Vital Signs/Intake and Output Vital Signs (last 24 hours): Temp Pulse Resp BP Pulse Ox 96.4 F L 68 20 122/62 98 11/23/16 15:45 11/23/16 15:45 11/23/16 15:45 11/23/16 16:23 11/23/16 15:45 Intake and Output: 11/23/16 11/23/16 06:59 18:59 Intake Total 120 920 Output Total 200 900 Balance -80 20 - Medications Medications: Current Medications Acetaminophen (Tylenol 325mg Tab) 650 mg PO Q6 PRN PRN Reason: Pain 4-10 Ascorbic Acid (Vitamin C 500 Mg Tab) 500 mg PO DAILY [facility] Last Admin: 11/23/16 08:54 Dose: 500 mg Aspirin (Aspirin Chewable) 81 mg PO DAILY [facility] 234 [facility] Last Admin: 11/23/16 08:54 Dose: 81 mg Atorvastatin Calcium (Lipitor) 20 mg PO DAILY@2100 [facility] 234 [facility]S [facility] Last Admin: 11/22/16 21:49 Dose: 20 mg Clopidogrel Bisulfate (Plavix) 75 mg PO DAILY [facility] 234 [facility]S [facility] Last Admin: 11/23/16 08:54 Dose: 75 mg Donepezil HCl (Aricept) 5 mg PO HS [facility] 234 [facility]S [facility] Last Admin: 11/22/16 21:48 Dose: 5 mg Dorzolamide HCl (Trusopt) 1 drop OU 0900,2200 [facility] 234 [facility]S [facility] Last Admin: 11/23/16 08:54 Dose: 1 drop Epoetin Tyrone (Procrit) 10,000 unit IV TTS [facility] 234 [facility] Last Admin: 11/23/16 17:05 Dose: 10,000 unit Ergocalciferol (Drisdol 50,000 Intl Units Cap) 1 cap PO LEONIDAS [facility]S [facility]CLUDE 234 BEDS [facility] Last Admin: 11/23/16 08:55 Dose: 1 cap Finasteride (Proscar) 5 mg PO DAILY [facility] 234 [facility] Last Admin: 11/23/16 08:55 Dose: 5 mg Gabapentin (Neurontin) 100 mg PO TID [facility] 234 [facility] Last Admin: 11/23/16 17:06 Dose: 100 mg Gentamicin Sulfate (Gentamicin 0.1%) 1 applic TOP DAILY@0600 [facility] 234 [facility]S [facility] Last Admin: 11/23/16 06:47 Dose: 1 applic Heparin Sodium (Porcine) (Heparin) 5,000 units SC Q8 [facility] PRN Reason: Protocol Last Admin: 11/23/16 14:18 Dose: 5,000 units Iron Sucrose 100 mg/ Sodium (Chloride) 105 mls @ 105 mls/hr IV TTS [facility] 234 [facility]S [facility] Last Admin: 11/23/16 17:04 Dose: 105 mls/hr Insulin Human Regular (Humulin R) 0 units SC ACHS [facility] PRN Reason: Protocol Last Admin: 11/23/16 17:05 Dose: 1 unit Latanoprost (Xalatan Opht) 1 drop OU HS [facility] 234 [facility]S [facility] Last Admin: 11/22/16 21:49 Dose: 1 drop Levothyroxine Sodium (Synthroid) 100 mcg PO DAILY@0630 [facility] 234 [facility]S [facility] Last Admin: 11/23/16 06:46 Dose: 100 mcg Nitroglycerin (Nitrostat Sl Tab) 0.4 mg SL Q5MIN PRN PRN Reason: Other (CHEST PAIN) Pantoprazole Sodium (Protonix Susp) 40 mg PO DAILY [facility] 234 [facility]S [facility] Last Admin: 11/23/16 08:54 Dose: 40 mg Tamsulosin HCl (Flomax) 0.4 mg PO HS [facility] 234 BEDS AT [facility] Vitamin B Complex/Vit C/Folic Acid (Nephro-Prosper) 1 tab PO DAILY [facility] 234 B[facility]S [facility] Last Admin: 11/23/16 08:54 Dose: 1 tab - Labs Labs: 11/21/16 06:40 11/22/16 11:20 PT 13.3 SECONDS (9.6-11.2) H 11/10/16 07:05 INR 1.28 (0.92-1.08) H 11/10/16 07:05 APTT 38.5 SECONDS (23.3-32.5) H 11/10/16 07:05
--- NOTE | 2016-11-23 21:33 | CP.PCM.PN ---
Subjective - Date & Time of Evaluation Date of Evaluation: 11/23/16 Time of Evaluation: 14:00 - Subjective Subjective: SEEN ON RENAL F/U CASE D/W DR ZUNIGA PT IS FEELING MUCH BEETTER STILL ON KEN .. WILL DO BLADDER TRAINING AND TO D/C KEN Objective - Vital Signs/Intake and Output Vital Signs (last 24 hours): Temp Pulse Resp BP Pulse Ox 97.4 F L 70 20 145/74 97 11/23/16 19:43 11/23/16 19:43 11/23/16 19:43 11/23/16 19:43 11/23/16 19:43 Intake and Output: 11/23/16 11/24/16 18:59 06:59 Intake Total 920 Output Total 900 Balance 20 - Medications Medications: Current Medications Acetaminophen (Tylenol 325mg Tab) 650 mg PO Q6 PRN PRN Reason: Pain 4-10 Ascorbic Acid (Vitamin C 500 Mg Tab) 500 mg PO DAILY [facility] Last Admin: 11/23/16 08:54 Dose: 500 mg Aspirin (Aspirin Chewable) 81 mg PO DAILY [facility] Last Admin: 11/23/16 08:54 Dose: 81 mg Atorvastatin Calcium (Lipitor) 20 mg PO DAILY@2100 [facility] Last Admin: 11/22/16 21:49 Dose: 20 mg Clopidogrel Bisulfate (Plavix) 75 mg PO DAILY [facility] Last Admin: 11/23/16 08:54 Dose: 75 mg Donepezil HCl (Aricept) 5 mg PO HS [facility] Last Admin: 11/22/16 21:48 Dose: 5 mg Dorzolamide HCl (Trusopt) 1 drop OU 0900,2200 [facility] Last Admin: 11/23/16 08:54 Dose: 1 drop Epoetin Tyrone (Procrit) 10,000 unit IV TTS [facility] Last Admin: 11/23/16 17:05 Dose: 10,000 unit Ergocalciferol (Drisdol 50,000 Intl Units Cap) 1 cap PO LEONIDAS [facility] Last Admin: 11/23/16 08:55 Dose: 1 cap Finasteride (Proscar) 5 mg PO DAILY [facility] Last Admin: 11/23/16 08:55 Dose: 5 mg Gabapentin (Neurontin) 100 mg PO TID [facility] Last Admin: 11/23/16 17:06 Dose: 100 mg Gentamicin Sulfate (Gentamicin 0.1%) 1 applic TOP DAILY@0600 [facility] Last Admin: 11/23/16 06:47 Dose: 1 applic Heparin Sodium (Porcine) (Heparin) 5,000 units SC Q8 [facility] PRN Reason: Protocol Last Admin: 11/23/16 14:18 Dose: 5,000 units Iron Sucrose 100 mg/ Sodium (Chloride) 105 mls @ 105 mls/hr IV TTS [facility] Last Admin: 11/23/16 17:04 Dose: 105 mls/hr Insulin Human Regular (Humulin R) 0 units SC ACHS [facility] PRN Reason: Protocol Last Admin: 11/23/16 17:05 Dose: 1 unit Latanoprost (Xalatan Opht) 1 drop OU HS [facility] Last Admin: 11/22/16 21:49 Dose: 1 drop Levothyroxine Sodium (Synthroid) 100 mcg PO DAILY@0630 [facility] Last Admin: 11/23/16 06:46 Dose: 100 mcg Nitroglycerin (Nitrostat Sl Tab) 0.4 mg SL Q5MIN PRN PRN Reason: Other (CHEST PAIN) Pantoprazole Sodium (Protonix Susp) 40 mg PO DAILY [facility] Last Admin: 11/23/16 08:54 Dose: 40 mg Tamsulosin HCl (Flomax) 0.4 mg PO HS [facility] Vitamin B Complex/Vit C/Folic Acid (Nephro-Prosper) 1 tab PO DAILY [facility] Last Admin: 11/23/16 08:54 Dose: 1 tab - Labs Labs: 11/21/16 06:40 11/22/16 11:20 PT 13.3 SECONDS (9.6-11.2) H 11/10/16 07:05 INR 1.28 (0.92-1.08) H 11/10/16 07:05 APTT 38.5 SECONDS (23.3-32.5) H 11/10/16 07:05 Assessment and Plan - Assessment and Plan (Free Text) Assessment: ESRD ON HD TTS .. TO BE C/O ANEMIA OF CKD .. H/H STABLE URINARY RETENTION .. HAS KEN P D/W DR ZUNIGA .. WILL C/O FLOMAX BLADDER TRAINING X 24 H D/C B TOÑO 2/2 LOW BP
[2016-11-23] MEDS: Latanoprost 0.005% Opht SOUTION OU SCH (22:26)
[2016-11-24] MEDS: Levothyroxine 100 MCG TAB PO SCH (06:04)
[2016-11-24] MEDS: Insulin Regular 100 units/ml SC SCH ×4 (06:37→21:15)
--- NOTE | 2016-11-24 07:59 | CP.PCM.CON ---
History of Present Illness - History of Present Illness History of Present Illness: Pt seen for sup therapy 7:20-7:40. Pt discussed therapy, progress, and positive attention by others. Disc concerns for his future, being independant and able to care for himself. Options for the future discussed, concerns and emotions. Pt discussed family tensions as well as strategies for improved relationships. Support provided and continued therapy recommended. Past Patient History - Past Medical History & Family History Past Medical History?: Yes - Past Social History Smoking Status: Former Smoker Chewing Tobacco Use: No Cigar Use: No Alcohol: Social Drugs: Denies Home Situation {Lives}: With Family - CARDIAC Hx Hypertension: Yes - PULMONARY Hx Respiratory Disorders: No - NEUROLOGICAL HX Cerebrovascular Accident: Yes - HEENT Hx HEENT Problems: No - RENAL Hx Renal Failure: Yes - ENDOCRINE/METABOLIC Hx Diabetes Mellitus Type 2: Yes Hx Hypothyroidism: Yes - HEMATOLOGICAL/ONCOLOGICAL Hx Blood Disorders: No - INTEGUMENTARY Hx Dermatological Problems: No - MUSCULOSKELETAL/RHEUMATOLOGICAL Hx Musculoskeletal Disorders: No - GASTROINTESTINAL Hx Gastrointestinal Disorders: No - GENITOURINARY/GYNECOLOGICAL Hx Genitourinary Disorders: No - PSYCHIATRIC Hx Psychophysiologic Disorder: Yes - SURGICAL HISTORY Hx Surgeries: Yes Other/Comment: CABG 2006 - ANESTHESIA Hx Anesthesia: Yes Hx Anesthesia Reactions: No Meds Allergies/Adverse Reactions: Allergies Allergy/AdvReac Type Severity Reaction Status Date / Time No Known Allergies Allergy Verified 11/09/16 20:29 - Medications Medications: Current Medications Acetaminophen (Tylenol 325mg Tab) 650 mg PO Q6 PRN PRN Reason: Pain 4-10 Ascorbic Acid (Vitamin C 500 Mg Tab) 500 mg PO DAILY [facility] Last Admin: 11/23/16 08:54 Dose: 500 mg Aspirin (Aspirin Chewable) 81 mg PO DAILY [facility] Last Admin: 11/23/16 08:54 Dose: 81 mg Atorvastatin Calcium (Lipitor) 20 mg PO DAILY@2100 [facility] Last Admin: 11/23/16 21:37 Dose: 20 mg Clopidogrel Bisulfate (Plavix) 75 mg PO DAILY [facility] Last Admin: 11/23/16 08:54 Dose: 75 mg Donepezil HCl (Aricept) 5 mg PO HS [facility] Last Admin: 11/23/16 21:37 Dose: 5 mg Dorzolamide HCl (Trusopt) 1 drop OU 0900,2200 [facility] Last Admin: 11/23/16 21:39 Dose: 1 drop Epoetin Tyrone (Procrit) 10,000 unit IV TTS [facility] Last Admin: 11/23/16 17:05 Dose: 10,000 unit Ergocalciferol (Drisdol 50,000 Intl Units Cap) 1 cap PO LEONIDAS [facility] Last Admin: 11/23/16 08:55 Dose: 1 cap Finasteride (Proscar) 5 mg PO DAILY [facility] Last Admin: 11/23/16 08:55 Dose: 5 mg Gabapentin (Neurontin) 100 mg PO TID [facility] Last Admin: 11/23/16 17:06 Dose: 100 mg Gentamicin Sulfate (Gentamicin 0.1%) 1 applic TOP DAILY@0600 [facility] Last Admin: 11/24/16 06:04 Dose: 1 applic Heparin Sodium (Porcine) (Heparin) 5,000 units SC Q8 [facility] PRN Reason: Protocol Last Admin: 11/24/16 06:05 Dose: 5,000 units Iron Sucrose 100 mg/ Sodium (Chloride) 105 mls @ 105 mls/hr IV TTS [facility] Last Admin: 11/23/16 17:04 Dose: 105 mls/hr Insulin Human Regular (Humulin R) 0 units SC ACHS [facility] PRN Reason: Protocol Last Admin: 11/24/16 06:37 Dose: Not Given Latanoprost (Xalatan Opht) 1 drop OU HS [facility] Last Admin: 11/23/16 22:26 Dose: 1 drop Levothyroxine Sodium (Synthroid) 100 mcg PO DAILY@0630 [facility] Last Admin: 11/24/16 06:04 Dose: 100 mcg Nitroglycerin (Nitrostat Sl Tab) 0.4 mg SL Q5MIN PRN PRN Reason: Other (CHEST PAIN) Pantoprazole Sodium (Protonix Susp) 40 mg PO DAILY [facility] Last Admin: 11/23/16 08:54 Dose: 40 mg Tamsulosin HCl (Flomax) 0.4 mg PO HS [facility] Last Admin: 11/23/16 21:37 Dose: 0.4 mg Vitamin B Complex/Vit C/Folic Acid (Nephro-Prosper) 1 tab PO DAILY [facility] Last Admin: 11/23/16 08:54 Dose: 1 tab Results - Vital Signs Recent Vital Signs: Last Vital Signs Temp 98.1 F 11/24/16 07:42 Pulse 71 11/24/16 07:42 Resp 18 11/24/16 07:42 BP 128/65 11/24/16 07:42 Pulse Ox 100 11/24/16 07:42 - Labs Result Diagrams: 11/21/16 06:40 11/22/16 11:20 Labs: Laboratory Results - last 24 hr 11/23/16 11/23/16 11:24 16:02 POC Glucose (mg/dL) 226 H 170 H
[2016-11-24] MEDS: Multivitamin Vitamin B Complex (Nephro-Vite) Tab PO SCH (08:07)
[2016-11-24] MEDS: Dorzolamide 2% Ophth Soln OU SCH ×2 (08:07→21:15)
[2016-11-24] MEDS: Pantoprazole 40 mg Susp UD PO SCH (08:07)
--- NOTE | 2016-11-24 09:19 | CP.PCM.PN ---
Subjective - Date & Time of Evaluation Date of Evaluation: 11/24/16 Time of Evaluation: 14:24 - Subjective Subjective: feeling well tolerating therapy well no complaints no cp no sob no new weaknesses feels improved vss nad Objective - Vital Signs/Intake and Output Vital Signs (last 24 hours): Temp Pulse Resp BP Pulse Ox 98.1 F 71 18 128/65 100 11/24/16 07:42 11/24/16 07:42 11/24/16 07:42 11/24/16 07:42 11/24/16 07:42 Gen: WDWN, cooperative, alert HEENT: NCAT, PERRL, EOMI, no erythema, exudates, gross hearing intact, no lesions Neck: Soft, supple, no lymphadenopathy, no JVD Heart: +S1S2, RRR, No MRG Lung: CTAB, No WRR Abd: soft, NT, ND, BSx4, no HSM, no masses Ext: warm, well perfused, pedal pulses intact Neuro: AAOx3, Skin: Warm, Dry, no rash Psych: Normal mood, affect with appropriate range Intake and Output: 11/24/16 11/24/16 06:59 18:59 Intake Total 250 Output Total 500 Balance -250 - Medications Medications: Current Medications Acetaminophen (Tylenol 325mg Tab) 650 mg PO Q6 PRN PRN Reason: Pain 4-10 Ascorbic Acid (Vitamin C 500 Mg Tab) 500 mg PO DAILY [facility] Last Admin: 11/24/16 08:06 Dose: 500 mg Aspirin (Aspirin Chewable) 81 mg PO DAILY [facility] Last Admin: 11/24/16 08:05 Dose: 81 mg Atorvastatin Calcium (Lipitor) 20 mg PO DAILY@2100 [facility] Last Admin: 11/23/16 21:37 Dose: 20 mg Clopidogrel Bisulfate (Plavix) 75 mg PO DAILY [facility] Last Admin: 11/24/16 08:07 Dose: 75 mg Donepezil HCl (Aricept) 5 mg PO HS [facility] Last Admin: 11/23/16 21:37 Dose: 5 mg Dorzolamide HCl (Trusopt) 1 drop OU 0900,2200 [facility] Last Admin: 11/24/16 08:07 Dose: 1 drop Epoetin Tyrone (Procrit) 10,000 unit IV TTS [facility] Last Admin: 11/23/16 17:05 Dose: 10,000 unit Ergocalciferol (Drisdol 50,000 Intl Units Cap) 1 cap PO LEONIDAS [facility] Last Admin: 11/23/16 08:55 Dose: 1 cap Finasteride (Proscar) 5 mg PO DAILY [facility] Last Admin: 11/24/16 08:08 Dose: 5 mg Gabapentin (Neurontin) 100 mg PO TID [facility] Last Admin: 11/24/16 08:07 Dose: 100 mg Gentamicin Sulfate (Gentamicin 0.1%) 1 applic TOP DAILY@0600 [facility] Last Admin: 11/24/16 06:04 Dose: 1 applic Heparin Sodium (Porcine) (Heparin) 5,000 units SC Q8 [facility] PRN Reason: Protocol Last Admin: 11/24/16 06:05 Dose: 5,000 units Iron Sucrose 100 mg/ Sodium (Chloride) 105 mls @ 105 mls/hr IV TTS [facility] Last Admin: 11/23/16 17:04 Dose: 105 mls/hr Insulin Human Regular (Humulin R) 0 units SC ACHS [facility] PRN Reason: Protocol Last Admin: 11/24/16 06:37 Dose: Not Given Latanoprost (Xalatan Opht) 1 drop OU HS [facility] Last Admin: 11/23/16 22:26 Dose: 1 drop Levothyroxine Sodium (Synthroid) 100 mcg PO DAILY@0630 [facility] Last Admin: 11/24/16 06:04 Dose: 100 mcg Nitroglycerin (Nitrostat Sl Tab) 0.4 mg SL Q5MIN PRN PRN Reason: Other (CHEST PAIN) Pantoprazole Sodium (Protonix Susp) 40 mg PO DAILY [facility] Last Admin: 11/24/16 08:07 Dose: 40 mg Tamsulosin HCl (Flomax) 0.4 mg PO HS [facility] Last Admin: 11/23/16 21:37 Dose: 0.4 mg Vitamin B Complex/Vit C/Folic Acid (Nephro-Prosper) 1 tab PO DAILY [facility] Last Admin: 11/24/16 08:07 Dose: 1 tab - Labs Labs: 11/21/16 06:40 11/22/16 11:20 PT 13.3 SECONDS (9.6-11.2) H 11/10/16 07:05 INR 1.28 (0.92-1.08) H 11/10/16 07:05 APTT 38.5 SECONDS (23.3-32.5) H 11/10/16 07:05 Assessment and Plan - Assessment and Plan (Free Text) Plan: 61 yo male with history of HTN, CAD, ESRD (on HD), DM2 and previous CVA [place] [facility] [place] for Acute CVA with right sided weakness to Acute rehab for continuation of PT/OT. (1) CVA (cerebrovascular accident) continue PT/OT doing well continue ASA and Lipitor maintain BP control physiatry consult Dr. Nicole appreciated and followed psych consult appreciated and followed (2) CAD (coronary artery disease) continue ASA, Plavix, Lipitor and Coreg (3) HTN (hypertension) continue to have orthostatic hypotension reduce Coreg to 6.25mg PO q 12hrs monitor BP (4) ESRD (end stage renal disease) on dialysis Creat was 7.7 pre-dialysis yesterday follow up [facility] Nephrology consult appreciated and followed (5) History of urinary retention chaparro catheter , bladder training for dc chaparro not sure if we still need Flomax and Avodart with indwelling catheter urology consult appreciated and followed (6) Anemia in chronic kidney disease (CKD) Procrit 10,000 IV Dfcm-Mirvk-Bra Iron 100 mg IV Moaq-Zcreh-Cjk (7) Hypothyroid Levothyroxine 100 mcg PO daily (8) Prophylactic measure Heparin 5,000 Units SQ Q8H Protonix 40 mg PO daily
--- NOTE | 2016-11-24 19:29 | CP.PCM.PN ---
Subjective - Date & Time of Evaluation Date of Evaluation: 11/24/16 Time of Evaluation: 14:00 - Subjective Subjective: SEEN ON RENAL F/U ON HD T T S ALL PREVIOUS EMR REVIEWED FEELS MUCH BETTER CURRENTLY ON BLADDER TRAINING Objective - Vital Signs/Intake and Output Vital Signs (last 24 hours): Temp Pulse Resp BP Pulse Ox 97.5 F L 69 20 102/54 L 100 11/24/16 16:17 11/24/16 16:17 11/24/16 16:17 11/24/16 16:25 11/24/16 16:17 Intake and Output: 11/24/16 11/25/16 18:59 06:59 Output Total 400 Balance -400 - Medications Medications: Current Medications Acetaminophen (Tylenol 325mg Tab) 650 mg PO Q6 PRN PRN Reason: Pain 4-10 Ascorbic Acid (Vitamin C 500 Mg Tab) 500 mg PO DAILY [facility] Last Admin: 11/24/16 08:06 Dose: 500 mg Aspirin (Aspirin Chewable) 81 mg PO DAILY [facility] Last Admin: 11/24/16 08:05 Dose: 81 mg Atorvastatin Calcium (Lipitor) 20 mg PO DAILY@2100 [facility] Last Admin: 11/23/16 21:37 Dose: 20 mg Clopidogrel Bisulfate (Plavix) 75 mg PO DAILY [facility] Last Admin: 11/24/16 08:07 Dose: 75 mg Donepezil HCl (Aricept) 5 mg PO HS [facility] Last Admin: 11/23/16 21:37 Dose: 5 mg Dorzolamide HCl (Trusopt) 1 drop OU 0900,2200 [facility] Last Admin: 11/24/16 08:07 Dose: 1 drop Epoetin Tyrone (Procrit) 10,000 unit IV TTS [facility] Last Admin: 11/23/16 17:05 Dose: 10,000 unit Ergocalciferol (Drisdol 50,000 Intl Units Cap) 1 cap PO LEONIDAS [facility] Last Admin: 11/23/16 08:55 Dose: 1 cap Finasteride (Proscar) 5 mg PO DAILY [facility] Last Admin: 11/24/16 08:08 Dose: 5 mg Gabapentin (Neurontin) 100 mg PO TID [facility] Last Admin: 11/24/16 16:43 Dose: 100 mg Gentamicin Sulfate (Gentamicin 0.1%) 1 applic TOP DAILY@0600 [facility] Last Admin: 11/24/16 06:04 Dose: 1 applic Heparin Sodium (Porcine) (Heparin) 5,000 units SC Q8 ANJLAI PRN Reason: Protocol Last Admin: 11/24/16 14:36 Dose: 5,000 units Iron Sucrose 100 mg/ Sodium (Chloride) 105 mls @ 105 mls/hr IV TTS [facility] Last Admin: 11/23/16 17:04 Dose: 105 mls/hr Insulin Human Regular (Humulin R) 0 units SC ACHS ANJALI PRN Reason: Protocol Last Admin: 11/24/16 16:26 Dose: Not Given Latanoprost (Xalatan Opht) 1 drop OU HS [facility] Last Admin: 11/23/16 22:26 Dose: 1 drop Levothyroxine Sodium (Synthroid) 100 mcg PO DAILY@0630 [facility] Last Admin: 11/24/16 06:04 Dose: 100 mcg Nitroglycerin (Nitrostat Sl Tab) 0.4 mg SL Q5MIN PRN PRN Reason: Other (CHEST PAIN) Pantoprazole Sodium (Protonix Susp) 40 mg PO DAILY [facility] Last Admin: 11/24/16 08:07 Dose: 40 mg Tamsulosin HCl (Flomax) 0.4 mg PO HS [facility] Last Admin: 11/23/16 21:37 Dose: 0.4 mg Vitamin B Complex/Vit C/Folic Acid (Nephro-Prosper) 1 tab PO DAILY [facility] Last Admin: 11/24/16 08:07 Dose: 1 tab - Labs Labs: 11/21/16 06:40 11/22/16 11:20 PT 13.3 SECONDS (9.6-11.2) H 11/10/16 07:05 INR 1.28 (0.92-1.08) H 11/10/16 07:05 APTT 38.5 SECONDS (23.3-32.5) H 11/10/16 07:05 Assessment and Plan - Assessment and Plan (Free Text) Assessment: ESRD ON HD TTS ANEMIA OF CKD .. H/H STABLE URINARY RETENTION .. ON KEN CATH TRAINING MULTIPLE CO MORBIDITIES P : C/O CURRENT CARE
[2016-11-24] MEDS: Latanoprost 0.005% Opht SOUTION OU SCH (21:25)
--- NOTE | 2016-11-25 05:39 | CP.PCM.PCO ---
Physician Communication Note - Physician Communication Note Physician Communication Note: NO urine since Flores D/C 9 PM 11/24/16. Straight Cath PRN. Blad Scan Unavlbl
[2016-11-25] MEDS: Levothyroxine 100 MCG TAB PO SCH (06:08)
[2016-11-25] MEDS: Insulin Regular 100 units/ml SC SCH ×4 (06:32→22:31)
[2016-11-25] MEDS: Dorzolamide 2% Ophth Soln OU SCH ×2 (09:06→22:05)
[2016-11-25] MEDS: Multivitamin Vitamin B Complex (Nephro-Vite) Tab PO SCH (09:06)
[2016-11-25] MEDS: Pantoprazole 40 mg Susp UD PO SCH (09:07)
[2016-11-25] MEDS: EPOETIN ALFA 10,000 UNIT/ML ML IV SCH ×2 (17:34→20:34)
[2016-11-25] MEDS: Latanoprost 0.005% Opht SOUTION OU SCH (22:15)
--- NOTE | 2016-11-26 03:31 | CP.PCM.PN ---
Subjective - Date & Time of Evaluation Date of Evaluation: 11/25/16 Time of Evaluation: 14:00 - Subjective Subjective: SEEN ON RENAL F/U S/P KEN REMOVAL PER RN .. PT IS VOIDING UNFORTUNATELY THERE IS NO BLADDER SCAN ON THE FLOOR PT IS ON HD T T S Objective - Vital Signs/Intake and Output Vital Signs (last 24 hours): Temp Pulse Resp BP Pulse Ox 97.2 F L 79 20 125/68 100 11/25/16 20:21 11/25/16 20:21 11/25/16 20:21 11/25/16 20:21 11/25/16 20:21 Intake and Output: 11/25/16 11/26/16 18:59 07:59 Intake Total 500 Output Total 1 Balance 499 - Medications Medications: Current Medications Acetaminophen (Tylenol 325mg Tab) 650 mg PO Q6 PRN PRN Reason: Pain 4-10 Last Admin: 11/25/16 20:21 Dose: 650 mg Ascorbic Acid (Vitamin C 500 Mg Tab) 500 mg PO DAILY [facility] Last Admin: 11/25/16 09:07 Dose: 500 mg Aspirin (Aspirin Chewable) 81 mg PO DAILY [facility] Last Admin: 11/25/16 09:07 Dose: 81 mg Atorvastatin Calcium (Lipitor) 20 mg PO DAILY@2100 [facility] Last Admin: 11/25/16 21:53 Dose: 20 mg Clopidogrel Bisulfate (Plavix) 75 mg PO DAILY [facility] Last Admin: 11/25/16 09:07 Dose: 75 mg Donepezil HCl (Aricept) 5 mg PO HS [facility] Last Admin: 11/25/16 21:54 Dose: 5 mg Dorzolamide HCl (Trusopt) 1 drop OU 0900,2200 [facility] Last Admin: 11/25/16 22:05 Dose: 1 drop Epoetin Tyrone (Procrit) 10,000 unit IV TTS [facility] Last Admin: 11/25/16 20:34 Dose: Not Given Ergocalciferol (Drisdol 50,000 Intl Units Cap) 1 cap PO LEONIDAS [facility] Last Admin: 11/23/16 08:55 Dose: 1 cap Finasteride (Proscar) 5 mg PO DAILY [facility] Last Admin: 11/25/16 09:07 Dose: 5 mg Gabapentin (Neurontin) 100 mg PO TID [facility] Last Admin: 11/25/16 20:13 Dose: 100 mg Gentamicin Sulfate (Gentamicin 0.1%) 1 applic TOP DAILY@0600 [facility] Last Admin: 11/25/16 06:08 Dose: 1 applic Heparin Sodium (Porcine) (Heparin) 5,000 units SC Q8 ANJALI PRN Reason: Protocol Last Admin: 11/25/16 21:56 Dose: 5,000 units Iron Sucrose 100 mg/ Sodium (Chloride) 105 mls @ 105 mls/hr IV TTS [facility] Last Admin: 11/25/16 20:32 Dose: Not Given Insulin Human Regular (Humulin R) 0 units SC ACHS ANJALI PRN Reason: Protocol Last Admin: 11/25/16 22:31 Dose: Not Given Latanoprost (Xalatan Opht) 1 drop OU HS [facility] Last Admin: 11/25/16 22:15 Dose: 1 drop Levothyroxine Sodium (Synthroid) 100 mcg PO DAILY@0630 [facility] Last Admin: 11/25/16 06:08 Dose: 100 mcg Nitroglycerin (Nitrostat Sl Tab) 0.4 mg SL Q5MIN PRN PRN Reason: Other (CHEST PAIN) Pantoprazole Sodium (Protonix Susp) 40 mg PO DAILY [facility] Last Admin: 11/25/16 09:07 Dose: 40 mg Tamsulosin HCl (Flomax) 0.4 mg PO HS [facility] Last Admin: 11/25/16 21:54 Dose: 0.4 mg Vitamin B Complex/Vit C/Folic Acid (Nephro-Prosper) 1 tab PO DAILY [facility] Last Admin: 11/25/16 09:06 Dose: 1 tab - Labs Labs: 11/21/16 06:40 11/22/16 11:20 PT 13.3 SECONDS (9.6-11.2) H 11/10/16 07:05 INR 1.28 (0.92-1.08) H 11/10/16 07:05 APTT 38.5 SECONDS (23.3-32.5) H 11/10/16 07:05 Assessment and Plan - Assessment and Plan (Free Text) Assessment: C/O CURRENT CARE
[2016-11-26] MEDS: Levothyroxine 100 MCG TAB PO SCH (06:02)
[2016-11-26] MEDS: Insulin Regular 100 units/ml SC SCH ×4 (07:27→22:14)
[2016-11-26] MEDS: Multivitamin Vitamin B Complex (Nephro-Vite) Tab PO SCH (09:03)
[2016-11-26] MEDS: Pantoprazole 40 mg Susp UD PO SCH (09:03)
[2016-11-26] MEDS: Dorzolamide 2% Ophth Soln OU SCH ×2 (09:04→21:46)
[2016-11-26] MEDS: Latanoprost 0.005% Opht SOUTION OU SCH (23:05)
[2016-11-27] MEDS: Levothyroxine 100 MCG TAB PO SCH (06:38)
[2016-11-27] MEDS: Insulin Regular 100 units/ml SC SCH ×4 (07:06→21:23)
[2016-11-27] MEDS: Dorzolamide 2% Ophth Soln OU SCH ×2 (08:19→21:15)
[2016-11-27] MEDS: Multivitamin Vitamin B Complex (Nephro-Vite) Tab PO SCH (08:20)
[2016-11-27] MEDS: Pantoprazole 40 mg Susp UD PO SCH (08:20)
--- NOTE | 2016-11-27 13:22 | CP.PCM.PN ---
Subjective - Date & Time of Evaluation Date of Evaluation: 11/27/16 Time of Evaluation: 13:21 - Subjective Subjective: pt feeling well tolerating PT well good spirits no complaints no cp no sob vss nad Objective - Vital Signs/Intake and Output Vital Signs (last 24 hours): Temp Pulse Resp BP Pulse Ox 97.0 F L 77 18 137/84 100 11/27/16 07:59 11/27/16 07:59 11/27/16 07:59 11/27/16 11:35 11/27/16 07:59 Gen: WDWN, cooperative, alert HEENT: NCAT, PERRL, EOMI, no erythema, exudates, gross hearing intact, no lesions Neck: Soft, supple, no lymphadenopathy, no JVD Heart: +S1S2, RRR, No MRG Lung: CTAB, No WRR Abd: soft, NT, ND, BSx4, no HSM, no masses Ext: warm, well perfused, pedal pulses intact weak LUE, Neuro: AAOx3, Skin: Warm, Dry, no rash Psych: Normal mood, affect with appropriate range Intake and Output: 11/27/16 11/27/16 06:59 18:59 Intake Total 150 Output Total 550 Balance -400 - Medications Medications: Current Medications Acetaminophen (Tylenol 325mg Tab) 650 mg PO Q6 PRN PRN Reason: Pain 4-10 Last Admin: 11/26/16 21:55 Dose: 650 mg Ascorbic Acid (Vitamin C 500 Mg Tab) 500 mg PO DAILY [facility] Last Admin: 11/27/16 08:20 Dose: 500 mg Aspirin (Aspirin Chewable) 81 mg PO DAILY [facility] Last Admin: 11/27/16 08:20 Dose: 81 mg Atorvastatin Calcium (Lipitor) 20 mg PO DAILY@2100 [facility] Last Admin: 11/26/16 21:46 Dose: 20 mg Clopidogrel Bisulfate (Plavix) 75 mg PO DAILY [facility] Last Admin: 11/27/16 08:20 Dose: 75 mg Donepezil HCl (Aricept) 5 mg PO HS [facility] Last Admin: 11/26/16 21:45 Dose: 5 mg Dorzolamide HCl (Trusopt) 1 drop OU 0900,2200 [facility] Last Admin: 11/27/16 08:19 Dose: 1 drop Epoetin Tyrone (Procrit) 10,000 unit IV TTS [facility] Last Admin: 11/25/16 20:34 Dose: Not Given Ergocalciferol (Drisdol 50,000 Intl Units Cap) 1 cap PO LEONIDAS [facility] Last Admin: 11/23/16 08:55 Dose: 1 cap Finasteride (Proscar) 5 mg PO DAILY [facility] Last Admin: 11/27/16 08:20 Dose: 5 mg Gabapentin (Neurontin) 100 mg PO TID [facility] Last Admin: 11/27/16 12:04 Dose: 100 mg Gentamicin Sulfate (Gentamicin 0.1%) 1 applic TOP DAILY@0600 [facility] Last Admin: 11/27/16 06:37 Dose: 1 applic Heparin Sodium (Porcine) (Heparin) 5,000 units SC Q8 [facility] PRN Reason: Protocol Last Admin: 11/27/16 06:36 Dose: 5,000 units Iron Sucrose 100 mg/ Sodium (Chloride) 105 mls @ 105 mls/hr IV TTS [facility] Insulin Human Regular (Humulin R) 0 units SC ACHS [facility] PRN Reason: Protocol Last Admin: 11/27/16 12:04 Dose: 2 unit Latanoprost (Xalatan Opht) 1 drop OU HS [facility] Last Admin: 11/26/16 23:05 Dose: 1 drop Levothyroxine Sodium (Synthroid) 100 mcg PO DAILY@0630 [facility] Last Admin: 11/27/16 06:38 Dose: 100 mcg Nitroglycerin (Nitrostat Sl Tab) 0.4 mg SL Q5MIN PRN PRN Reason: Other (CHEST PAIN) Pantoprazole Sodium (Protonix Susp) 40 mg PO DAILY [facility] Last Admin: 11/27/16 08:20 Dose: 40 mg Tamsulosin HCl (Flomax) 0.4 mg PO HS [facility] Last Admin: 11/26/16 21:45 Dose: 0.4 mg Vitamin B Complex/Vit C/Folic Acid (Nephro-Prosper) 1 tab PO DAILY [facility] Last Admin: 11/27/16 08:20 Dose: 1 tab - Labs Labs: 11/21/16 06:40 11/22/16 11:20 PT 13.3 SECONDS (9.6-11.2) H 11/10/16 07:05 INR 1.28 (0.92-1.08) H 11/10/16 07:05 APTT 38.5 SECONDS (23.3-32.5) H 11/10/16 07:05 Assessment and Plan - Assessment and Plan (Free Text) Plan: 61 yo male with history of HTN, CAD, ESRD (on HD), DM2 and previous CVA transferred from [facility] where he was admitted for Acute CVA with right sided weakness to Acute rehab for continuation of PT/OT. (1) CVA (cerebrovascular accident) continue PT/OT doing well continue ASA and Lipitor maintain BP control physiatry consult Dr. Nicole appreciated and followed psych consult appreciated and followed (2) CAD (coronary artery disease) continue ASA, Plavix, Lipitor and Coreg (3) HTN (hypertension) continue to have orthostatic hypotension reduce Coreg to 6.25mg PO q 12hrs monitor BP (4) ESRD (end stage renal disease) on dialysis Creat was 7.7 pre-dialysis yesterday follow up [facility] Nephrology consult appreciated and followed (5) History of urinary retention chaparro catheter , bladder training for dc chaparro not sure if we still need Flomax and Avodart with indwelling catheter urology consult appreciated and followed (6) Anemia in chronic kidney disease (CKD) Procrit 10,000 IV Sjho-Fqbtc-Wak Iron 100 mg IV [id number]-Qpx (7) Hypothyroid Levothyroxine 100 mcg PO daily (8) Prophylactic measure Heparin 5,000 Units SQ Q8H Protonix 40 mg PO daily
--- NOTE | 2016-11-27 19:44 | CARD ---
APPROVED REPORT EKG Measurement Heart [id number] <Conclusion> Normal sinus rhythm Minimal voltage criteria for LVH, may be normal variant Borderline ECG
--- NOTE | 2016-11-27 20:35 | CP.PCM.PN ---
Subjective - Date & Time of Evaluation Date of Evaluation: 11/27/16 Time of Evaluation: 15:00 - Subjective Subjective: SEEN ON RENAL F/U STATES URINATING WELL NATURALLY FEELS IMPROVED Objective - Vital Signs/Intake and Output Vital Signs (last 24 hours): Temp Pulse Resp BP Pulse Ox 96.6 F L 75 20 119/66 95 11/27/16 15:54 11/27/16 15:54 11/27/16 15:54 11/27/16 15:54 11/27/16 15:54 Intake and Output: 11/27/16 11/28/16 18:59 06:59 Intake Total 420 Output Total 275 Balance 145 - Medications Medications: Current Medications Acetaminophen (Tylenol 325mg Tab) 650 mg PO Q6 PRN PRN Reason: Pain 4-10 Last Admin: 11/26/16 21:55 Dose: 650 mg Ascorbic Acid (Vitamin C 500 Mg Tab) 500 mg PO DAILY [facility] Last Admin: 11/27/16 08:20 Dose: 500 mg Aspirin (Aspirin Chewable) 81 mg PO DAILY [facility] Last Admin: 11/27/16 08:20 Dose: 81 mg Atorvastatin Calcium (Lipitor) 20 mg PO DAILY@2100 [facility] Last Admin: 11/26/16 21:46 Dose: 20 mg Clopidogrel Bisulfate (Plavix) 75 mg PO DAILY [facility] Last Admin: 11/27/16 08:20 Dose: 75 mg Donepezil HCl (Aricept) 5 mg PO HS [facility] Last Admin: 11/26/16 21:45 Dose: 5 mg Dorzolamide HCl (Trusopt) 1 drop OU 0900,2200 [facility] Last Admin: 11/27/16 08:19 Dose: 1 drop Epoetin Tyrone (Procrit) 10,000 unit IV TTS [facility] Last Admin: 11/25/16 20:34 Dose: Not Given Ergocalciferol (Drisdol 50,000 Intl Units Cap) 1 cap PO LEONIDAS [facility] Last Admin: 11/23/16 08:55 Dose: 1 cap Finasteride (Proscar) 5 mg PO DAILY [facility] Last Admin: 11/27/16 08:20 Dose: 5 mg Gabapentin (Neurontin) 100 mg PO TID [facility] Last Admin: 11/27/16 17:07 Dose: 100 mg Gentamicin Sulfate (Gentamicin 0.1%) 1 applic TOP DAILY@0600 [facility] Last Admin: 11/27/16 06:37 Dose: 1 applic Heparin Sodium (Porcine) (Heparin) 5,000 units SC Q8 ANJALI PRN Reason: Protocol Last Admin: 11/27/16 14:58 Dose: 5,000 units Iron Sucrose 100 mg/ Sodium (Chloride) 105 mls @ 105 mls/hr IV TTS ANJALI Insulin Human Regular (Humulin R) 0 units SC ACHS ANJALI PRN Reason: Protocol Last Admin: 11/27/16 17:07 Dose: Not Given Latanoprost (Xalatan Opht) 1 drop OU HS [facility] Last Admin: 11/26/16 23:05 Dose: 1 drop Levothyroxine Sodium (Synthroid) 100 mcg PO DAILY@0630 [facility] Last Admin: 11/27/16 06:38 Dose: 100 mcg Nitroglycerin (Nitrostat Sl Tab) 0.4 mg SL Q5MIN PRN PRN Reason: Other (CHEST PAIN) Pantoprazole Sodium (Protonix Susp) 40 mg PO DAILY [facility] Last Admin: 11/27/16 08:20 Dose: 40 mg Tamsulosin HCl (Flomax) 0.4 mg PO HS [facility] Last Admin: 11/26/16 21:45 Dose: 0.4 mg Vitamin B Complex/Vit C/Folic Acid (Nephro-Prosper) 1 tab PO DAILY [facility] Last Admin: 11/27/16 08:20 Dose: 1 tab - Labs Labs: 11/21/16 06:40 11/22/16 11:20 PT 13.3 SECONDS (9.6-11.2) H 11/10/16 07:05 INR 1.28 (0.92-1.08) H 11/10/16 07:05 APTT 38.5 SECONDS (23.3-32.5) H 11/10/16 07:05 Assessment and Plan - Assessment and Plan (Free Text) Assessment: ESRD ON HD TTS C/O CURRENT CARE
[2016-11-27] MEDS: Latanoprost 0.005% Opht SOUTION OU SCH (21:39)
[2016-11-28] MEDS: Levothyroxine 100 MCG TAB PO SCH (05:35)
[2016-11-28] MEDS: Insulin Regular 100 units/ml SC SCH ×4 (07:06→21:16)
[2016-11-28] MEDS: EPOETIN ALFA 10,000 UNIT/ML ML IV SCH (08:30)
[2016-11-28] MEDS: Multivitamin Vitamin B Complex (Nephro-Vite) Tab PO SCH (08:55)
[2016-11-28] MEDS: Dorzolamide 2% Ophth Soln OU SCH ×2 (08:58→21:17)
[2016-11-28] MEDS: Pantoprazole 40 mg Susp UD PO SCH (08:58)
[2016-11-28] MEDS ORDERED: Iron Sucrose 100 mg/5 ml Inj IVP SCH (09:00)
[2016-11-28] MEDS: Latanoprost 0.005% Opht SOUTION OU SCH (21:24)
--- NOTE | 2016-11-28 22:02 | CT ---
EXAM: CT Head Without Intravenous Contrast. CLINICAL HISTORY: 61 years old, male; Signs and symptoms; Other: Stroke vs bleed; Additional info: Stroke vs bleed TECHNIQUE: Axial computed tomography images of the head/brain without intravenous contrast. This CT exam was performed using one or more of the following dose reduction techniques: automated exposure control, adjustment of the mA and/or kV according to patient size, and/or use of iterative reconstruction technique. Coronal and sagittal reformatted images were created and reviewed. COMPARISON: No relevant prior studies available. FINDINGS: Brain: Moderate atrophy. No intracranial hemorrhage. No mass. Mild encephalomalacia within LEFT frontal, RIGHT occipital regions. Few scattered foci of decreased attenuation within periventricular/subcortical white matter. No definite edema. Ventricles: No hydrocephalus. Bones/joints: No acute fracture. Chronic deformity/defect LEFT frontal bone/sinus. Soft tissues: Unremarkable. Vasculature: Atherosclerotic disease of intracranial arteries. Sinuses: Scattered minimal to mild mucosal thickening. Mastoid air cells: No mastoid effusion. Orbits: Unremarkable as visualized. IMPRESSION: 1. Nonspecific white matter changes. Acute infarction may be CT occult within first 24 hours. If a focal deficit persists, consider followup CT or MRI for further evaluation. 2. Incidental/non-acute findings are described above.
[2016-11-29] MEDS: Levothyroxine 100 MCG TAB PO SCH (05:54)
[2016-11-29] MEDS: Insulin Regular 100 units/ml SC SCH ×4 (07:03→22:31)
[2016-11-29] MEDS: Pantoprazole 40 mg Susp UD PO SCH (08:28)
[2016-11-29] MEDS: Multivitamin Vitamin B Complex (Nephro-Vite) Tab PO SCH (08:28)
[2016-11-29] MEDS: Dorzolamide 2% Ophth Soln OU SCH ×2 (08:28→21:26)
--- NOTE | 2016-11-29 10:54 | CP.PCM.PN ---
Subjective - Date & Time of Evaluation Date of Evaluation: 11/29/16 Time of Evaluation: 10:54 - Subjective Subjective: pt doing well with therapy and in good spirits no complaints vision improved after episode of blurry vision yesterday no cp no dyspnea no new weaknesses or neurologic sx Objective - Vital Signs/Intake and Output Vital Signs (last 24 hours): Temp Pulse Resp BP Pulse Ox 97.3 F L 89 19 115/57 L 97 11/29/16 08:40 11/29/16 08:40 11/29/16 08:40 11/29/16 08:40 11/29/16 08:40 Intake and Output: 11/29/16 11/29/16 06:59 18:59 Intake Total 250 Output Total 300 Balance -50 - Medications Medications: Current Medications Acetaminophen (Tylenol 325mg Tab) 650 mg PO Q6 PRN PRN Reason: Pain 4-10 Last Admin: 11/28/16 08:15 Dose: 650 mg Ascorbic Acid (Vitamin C 500 Mg Tab) 500 mg PO DAILY [facility] Last Admin: 11/29/16 08:28 Dose: 500 mg Aspirin (Aspirin Chewable) 81 mg PO DAILY [facility] Last Admin: 11/29/16 08:28 Dose: 81 mg Atorvastatin Calcium (Lipitor) 20 mg PO DAILY@2100 [facility] Last Admin: 11/28/16 21:15 Dose: 20 mg Clopidogrel Bisulfate (Plavix) 75 mg PO DAILY [facility] Last Admin: 11/29/16 08:28 Dose: 75 mg Donepezil HCl (Aricept) 5 mg PO HS [facility] Last Admin: 11/28/16 21:15 Dose: 5 mg Dorzolamide HCl (Trusopt) 1 drop OU 0900,2200 [facility] Last Admin: 11/29/16 08:28 Dose: 1 drop Epoetin Tyrone (Procrit) 10,000 unit IV TTS [facility] Last Admin: 11/28/16 08:30 Dose: 10,000 unit Ergocalciferol (Drisdol 50,000 Intl Units Cap) 1 cap PO LEONIDAS [facility] Last Admin: 11/23/16 08:55 Dose: 1 cap Finasteride (Proscar) 5 mg PO DAILY [facility] Last Admin: 11/29/16 08:28 Dose: 5 mg Gabapentin (Neurontin) 100 mg PO TID [facility] Last Admin: 11/29/16 08:28 Dose: 100 mg Gentamicin Sulfate (Gentamicin 0.1%) 1 applic TOP DAILY@0600 [facility] Last Admin: 11/29/16 05:54 Dose: 1 applic Heparin Sodium (Porcine) (Heparin) 5,000 units SC Q8 ANJALI PRN Reason: Protocol Last Admin: 11/29/16 05:54 Dose: 5,000 units Iron Sucrose 100 mg/ Sodium (Chloride) 105 mls @ 105 mls/hr IV TTS [facility] Last Admin: 11/28/16 09:30 Dose: 105 mls/hr Insulin Human Regular (Humulin R) 0 units SC ACHS ANJALI PRN Reason: Protocol Last Admin: 11/29/16 07:03 Dose: Not Given Latanoprost (Xalatan Opht) 1 drop OU HS [facility] Last Admin: 11/28/16 21:24 Dose: 1 drop Levothyroxine Sodium (Synthroid) 100 mcg PO DAILY@0630 [facility] Last Admin: 11/29/16 05:54 Dose: 100 mcg Nitroglycerin (Nitrostat Sl Tab) 0.4 mg SL Q5MIN PRN PRN Reason: Other (CHEST PAIN) Pantoprazole Sodium (Protonix Susp) 40 mg PO DAILY [facility] Last Admin: 11/29/16 08:28 Dose: 40 mg Tamsulosin HCl (Flomax) 0.4 mg PO HS [facility] Last Admin: 11/28/16 21:15 Dose: 0.4 mg Vitamin B Complex/Vit C/Folic Acid (Nephro-Prosper) 1 tab PO DAILY [facility] Last Admin: 11/29/16 08:28 Dose: 1 tab - Labs Labs: 11/21/16 06:40 11/22/16 11:20 PT 13.3 SECONDS (9.6-11.2) H 11/10/16 07:05 INR 1.28 (0.92-1.08) H 11/10/16 07:05 APTT 38.5 SECONDS (23.3-32.5) H 11/10/16 07:05 Assessment and Plan - Assessment and Plan (Free Text) Plan: 61 yo male with history of HTN, CAD, ESRD (on HD), DM2 and previous CVA transferred from [facility] where he was admitted for Acute CVA with right sided weakness to Acute rehab for continuation of PT/OT. Continue current management. Pt had episode of blurry vision, CT head negative. Symptoms resolved. (1) CVA (cerebrovascular accident) continue PT/OT doing well continue ASA and Lipitor maintain BP control physiatry consult Dr. Nicole appreciated and followed psych consult appreciated and followed (2) CAD (coronary artery disease) continue ASA, Plavix, Lipitor and Coreg (3) HTN (hypertension) continue to have orthostatic hypotension reduce Coreg to 6.25mg PO q 12hrs monitor BP (4) ESRD (end stage renal disease) on dialysis Creat was 7.7 pre-dialysis yesterday follow up [facility] Nephrology consult appreciated and followed (5) History of urinary retention chaparro catheter , bladder training for dc chaparro not sure if we still need Flomax and Avodart with indwelling catheter urology consult appreciated and followed (6) Anemia in chronic kidney disease (CKD) Procrit 10,000 IV Bpep-Hkejf-Lkt Iron 100 mg IV Oede-Kqctw-Nie (7) Hypothyroid Levothyroxine 100 mcg PO daily (8) Prophylactic measure Heparin 5,000 Units SQ Q8H Protonix 40 mg PO daily
--- NOTE | 2016-11-29 12:06 | PSY.TMCNF ---
Nursing - Vital Signs Vital Signs (Last 8 hours): Vital Signs 11/29/16 08:40 Temperature 97.3 F L Pulse Rate 89 Respiratory 19 Rate Blood Pressure 115/57 L O2 Sat by Pulse 97 Oximetry Pain: 0 - Precautions: Precautions: Fall Prevention, Aspiration - Medications/Other Issues Comment: Pt is at moderate nutritional risk. Goals: 1. Pt to consume 75-100% of meals(met, continue). 2. Blood glucoses to be between 70-180 mg/dl( partially met, continue). 3. K+ WNL(met, continue). Follow-up due by 12/05/16. - Consults Comment: Seen by - Toileting Toileting: Maximal Assistance - Bladder Management Bladder Pattern: Normal Voiding Method: Urinal - Bowel Management Bowel Pattern: Incontinent Bowel Management: Moderate Assistance - Transfers Transfers: Maximal Assistance - ADL's ADL's: Moderate Assistance - Pain Management Comments: Denies - Patient/Family Teaching Comments: safety measures - Goals/Time Frame Comments: fall & aspiration precautions Physical Therapy - Bed Mobility Bed Mobility: Verbal Cues, Moderate Assistance - Transfers Sit to Stand: Verbal Cues, Moderate Assistance - Ambulation Level of Assistance: Verbal Cues, Maximum Assistance, Dependent Distance (ft.): 12 Comment: 12 ft with R sided handrail in hallway; total A to manage LLE, CGA of second person to assist in maintaining balance. - Stair Negotiation Stairs: Level of Assistance: Not Tested - Standing Balance Static Stand: Moderate Assistance Dynamic Stand: Unable to assess/perform - Pain Pain (assessed during therapy session): 0 - Insight/Carryover Insight/Carryover: Good - Patient/Family Education Comment: Pt education for increased safety awareness and proper techniques during functional mobility training - Assessment/Plan Assessment: Pt continues to be noted with L facial weakness & dysphagia; mild/ moderate cog deficits; absent LUE/LLE AROM/strength; impaired balance; decreased endurance which limit his ability for fxnl independent fxnl transfers and ADLs. Pt noted with improved RUE compensatory strategies and engagement/ completion of ADLs /transfers. Pt noted with improved trunk control as it pertains to sitting balance. Pt continues to require max assist for transfers and supervision to max assist for ADLs. Pt continues to require skilled OT intervention at an acute rehab level and this OT recommends d.c to [facility]. - Goals Timeframe: 2 weeks - Provider License Number: [id number] Occupational Therapy - Arousal/Attention/Orientation Level of Consciousness: Awake, Alert Patient Orientation: Person, Place, Time - ADL/IADL Self Feeding: Supervision, Set-up Help Grooming: Supervision, Set-up Help Bathing-Upper Extremity: Moderate Assistance Bathing-Lower Extremity: Dependent Dressing-Upper Extremity: Moderate Assistance Dressing-Lower Extremity: Maximum Assistance - Sitting Balance Static Sitting: Supervision Dynamic Sitting: Unable to assess/perform - Transfers Wheelchair to Bed Transfers: Moderate Assistance, Maximum Assistance Toilet Transfers: Moderate Assistance, Maximum Assistance Tub Transfers: Moderate Assistance, Maximum Assistance Comment: sqaut pivot transfers towards unaffected side . bathing/toileting equipment utilized is roll-in shower-commode chair. - Wheelchair Management Level of Assistance: Contact Guard Distance (ft.): 75 - Upper Extremity Status Right Upper Extremity Comment: RUE AROM WFL t/o Left Upper Extremity Comment: LUE no AROM t/o. Pt noted with 1.5 finger sublux inferiorly. Pt PROM WFL - Pain Pain (assessed during therapy session): 0 - Insight/Carryover Insight/Carryover: Good - Patient/Family Education Comment: Pt education for increased safety awareness and proper techniques during functional mobility training - Assessment/Plan Assessment: Pt continues to be noted with L facial weakness & dysphagia; mild/ moderate cog deficits; absent LUE/LLE AROM/strength; impaired balance; decreased endurance which limit his ability for fxnl independent fxnl transfers and ADLs. Pt noted with improved RUE compensatory strategies and engagement/ completion of ADLs /transfers. Pt noted with improved trunk control as it pertains to sitting balance. Pt continues to require max assist for transfers and supervision to max assist for ADLs. Pt continues to require skilled OT intervention at an acute rehab level and this OT recommends d.c to [facility]. - Goals Timeframe: 2 weeks - Provider Therapist: radha mccoy License Number: [id number] Speech Therapy - Consult Information Patient on Program: Yes Medical Diagnosis: CVA Treatment Diagnosis: -mild-moderate dysarthria. -mild oropharyngeal dysphagia. -mild cognitive-linguistic deficits - Assessment Problem Solving Impairment: Mild Memory Impairment: Mild Speech/Articulation Impairment: Moderate Comment: mild-moderate Dysphagia/Swallowing Impairment: Mild Comment: finely chopped/thin liquids with chin tuck - Plan Assessment: Pt continues to be noted with L facial weakness & dysphagia; mild/ moderate cog deficits; absent LUE/LLE AROM/strength; impaired balance; decreased endurance which limit his ability for fxnl independent fxnl transfers and ADLs. Pt noted with improved RUE compensatory strategies and engagement/ completion of ADLs /transfers. Pt noted with improved trunk control as it pertains to sitting balance. Pt continues to require max assist for transfers and supervision to max assist for ADLs. Pt continues to require skilled OT intervention at an acute rehab level and this OT recommends d.c to [facility]. - Provider Therapist: Sherrill Mccarty License Number: [id number] Recreational Therapy - Participation Participation: Participates in Individual and/or Group Sessions - Attendance Attendance: 3-5 times per week - Activities Leisure Activities: Cards and Games - Socialization Level of Socialization: Initiates/interacts freely with care givers and peer - Diversional Time Diversional Time: television - Assessment Assessment/Plan: Pt continues to be noted with L facial weakness & dysphagia; mild/moderate cog deficits; absent LUE/LLE AROM/strength; impaired balance; decreased endurance which limit his ability for fxnl independent fxnl transfers and ADLs. Pt noted with improved RUE compensatory strategies and engagement/ completion of ADLs /transfers. Pt noted with improved trunk control as it pertains to sitting balance. Pt continues to require max assist for transfers and supervision to max assist for ADLs. Pt continues to require skilled OT intervention at an acute rehab level and this OT recommends d.c to [facility]. - Provider Therapist: Isa Sosa, ZINC CHLORIDE OPERATOR #[id number] Nutrition - Current Diet Current Diet/ Supplement/ Feedings: Renal dialysis, 2 gm Na, 90 gm protein, low consistent CHO, heart healthy, mech altered (finely chop) diet with thin liquids and 1000 mL fluid restriction. - Appetite Percent Meal Consumed: 75-100% - Comments Comments: safety measures - Assessment/Goals/Time Frame Assessment/Goals/Time Frame: Pt is at moderate nutritional risk. Goals: 1. Pt to consume 75-100% of meals(met, continue). 2. Blood glucoses to be between 70-180 mg/dl(partially met, continue). 3. K+ WNL(met, continue). Follow-up due by 12/05/16. - Provider Provider: Juliana Woortman, MS, RD Case Management - Psychosocial Assessment Support Systems: Resides with son and daughter. Son Nadeem díaz [phone] Psychological Interventions/Needs: Pt is alert and oriented, improved participation in therapy - with speech impairment Discharge Concerns: Pt resides in a 1 family home with 7 stairs to enter and which patient owns - pt may require roasterman care and may be ineligible for Medicaid. Pt's son and daughter work maritime officer and unable to care for pt at home. Son reports home is very small and unable to accomodate wchr. Patient/Family Meeting: CM spoke with pt and rehab team Intervention/Goal/Outcome:: 1.Tentative d/c 12/03 [facility] -facilities provided to pt' s son - Pt's first preference is [facility], then [facility] and [facility]. 2.Goal: min assist ADL's Xfers /Mod I for wchr mgmt. 3. CM spoke to son at length regarding discharge plan and roasterman options, including Medicaid eligibility, correction placement, in home hemodialysis and private pay homemaker services. 4. CM initiated referral to [facility] for [facility] as well as [facility] dialysis center. - Discharge Plan Discharge Plan: Subacute care - Provider Provider: COURTNEY Hicks, MECHANICAL INSPECTOR License Number: [id number] Rehabilitation Plan - Treatment Plan Treatment Plan: Physical Therapy, Occupational Therapy, Speech, Dietary, Patient /Family Education - Recommendation Recommendation: Physical Therapy, Occupational Therapy, Speech, Dietary, Patient /Family Education - Discharge Plan Discharge to: Subacute (subacute)
--- NOTE | 2016-11-29 14:18 | CP.PCM.PN ---
Subjective - Date & Time of Evaluation Date of Evaluation: 11/29/16 Time of Evaluation: 10:00 - Subjective Subjective: no acute complaints of neck or back pain Objective - Vital Signs/Intake and Output Vital Signs (last 24 hours): Temp Pulse Resp BP Pulse Ox 97.3 F L 89 19 115/57 L 97 11/29/16 08:40 11/29/16 08:40 11/29/16 08:40 11/29/16 08:40 11/29/16 08:40 Intake and Output: 11/29/16 11/29/16 06:59 18:59 Intake Total 250 Output Total 300 Balance -50 - Medications Medications: Current Medications Acetaminophen (Tylenol 325mg Tab) 650 mg PO Q6 PRN PRN Reason: Pain 4-10 Last Admin: 11/28/16 08:15 Dose: 650 mg Ascorbic Acid (Vitamin C 500 Mg Tab) 500 mg PO DAILY [facility] Last Admin: 11/29/16 08:28 Dose: 500 mg Aspirin (Aspirin Chewable) 81 mg PO DAILY [facility] Last Admin: 11/29/16 08:28 Dose: 81 mg Atorvastatin Calcium (Lipitor) 20 mg PO DAILY@2100 [facility] Last Admin: 11/28/16 21:15 Dose: 20 mg Clopidogrel Bisulfate (Plavix) 75 mg PO DAILY [facility] Last Admin: 11/29/16 08:28 Dose: 75 mg Donepezil HCl (Aricept) 5 mg PO HS [facility] Last Admin: 11/28/16 21:15 Dose: 5 mg Dorzolamide HCl (Trusopt) 1 drop OU 0900,2200 [facility] Last Admin: 11/29/16 08:28 Dose: 1 drop Epoetin Tyrone (Procrit) 10,000 unit IV TTS [facility] Last Admin: 11/28/16 08:30 Dose: 10,000 unit Ergocalciferol (Drisdol 50,000 Intl Units Cap) 1 cap PO LEONIDAS [facility] Last Admin: 11/23/16 08:55 Dose: 1 cap Finasteride (Proscar) 5 mg PO DAILY [facility] Last Admin: 11/29/16 08:28 Dose: 5 mg Gabapentin (Neurontin) 100 mg PO TID [facility] Last Admin: 11/29/16 12:35 Dose: 100 mg Gentamicin Sulfate (Gentamicin 0.1%) 1 applic TOP DAILY@0600 [facility] Last Admin: 11/29/16 05:54 Dose: 1 applic Heparin Sodium (Porcine) (Heparin) 5,000 units SC Q8 [facility]I PRN Reason: Protocol Last Admin: 11/29/16 05:54 Dose: 5,000 units Iron Sucrose 100 mg/ Sodium (Chloride) 105 mls @ 105 mls/hr IV TTS [facility] Last Admin: 11/28/16 09:30 Dose: 105 mls/hr Insulin Human Regular (Humulin R) 0 units SC ACHS ANJALI PRN Reason: Protocol Last Admin: 11/29/16 12:00 Dose: 2 unit Latanoprost (Xalatan Opht) 1 drop OU HS [facility] Last Admin: 11/28/16 21:24 Dose: 1 drop Levothyroxine Sodium (Synthroid) 100 mcg PO DAILY@0630 [facility] Last Admin: 11/29/16 05:54 Dose: 100 mcg Nitroglycerin (Nitrostat Sl Tab) 0.4 mg SL Q5MIN PRN PRN Reason: Other (CHEST PAIN) Pantoprazole Sodium (Protonix Susp) 40 mg PO DAILY [facility] Last Admin: 11/29/16 08:28 Dose: 40 mg Tamsulosin HCl (Flomax) 0.4 mg PO HS [facility] Last Admin: 11/28/16 21:15 Dose: 0.4 mg Vitamin B Complex/Vit C/Folic Acid (Nephro-Prosper) 1 tab PO DAILY [facility] Last Admin: 11/29/16 08:28 Dose: 1 tab - Labs Labs: 11/21/16 06:40 11/22/16 11:20 PT 13.3 SECONDS (9.6-11.2) H 11/10/16 07:05 INR 1.28 (0.92-1.08) H 11/10/16 07:05 APTT 38.5 SECONDS (23.3-32.5) H 11/10/16 07:05 - Head Exam Head Exam: ATRAUMATIC, NORMAL INSPECTION, NORMOCEPHALIC - Eye Exam Eye Exam: EOMI, Normal appearance, PERRL Pupil Exam: NORMAL ACCOMODATION - ENT Exam ENT Exam: Mucous Membranes Moist, Normal Exam - Respiratory Exam Respiratory Exam: NORMAL BREATHING PATTERN - Cardiovascular Exam Cardiovascular Exam: REGULAR RHYTHM - GI/Abdominal Exam GI & Abdominal Exam: Normal Bowel Sounds - Rectal Exam Rectal Exam: NORMAL INSPECTION - Extremities Exam Extremities Exam: Normal Capillary Refill, Normal Inspection - Neurological Exam Neurological Exam: Alert, Awake Neuro motor strength exam: Left Upper Extremity: 3, Right Upper Extremity: 3, Left Lower Extremity: 3, Right Lower Extremity: 3 - Psychiatric Exam Psychiatric exam: Normal Affect, Normal Mood Assessment and Plan (1) CVA (cerebrovascular accident) Assessment & Plan: plan for physical, occupational and speech therapy status post team conference Status: Acute (2) ESRD (end stage renal disease) on dialysis Status: Chronic (3) CAD (coronary artery disease) Status: Chronic
--- NOTE | 2016-11-29 17:50 | CON ---
DATE: 11/29/2016 REASON FOR CONSULTATION: New blurred vision. CHIEF COMPLAINT: The patient was admitted in rehabilitation unit in [facility] on 11/09 for his left-sided hemiplegia, hemiparesis. During the hospitalization, the patient was fo und to have blurred vision. From neurological point of view, I was called in to evaluate him for fur ther management. HISTORY OF PRESENT ILLNESS: The patient is a 61-year-old right-handed male who has been admitted at [facility] with a history of stroke manifesting with left-sided hemiplegia. The patient was stab ilized and he was transferred to rehabilitation unit in the [facility]. In the hosp italization, the patient found to have some blurred vision. He admits to some hand tremor when holdi ng his paper or book. No association with headache and no association with new speech impairment, no association with new weakness. PAST MEDICAL HISTORY: Stroke, anemia, coronary artery disease, end-stage renal disease, hypertension , and hypothyroidism. PERSONAL HISTORY: Quit smoking. No history of alcohol use. MEDICATIONS: Aricept, aspirin, Flomax, heparin, Lipitor, Neurontin, Procrit, Protonix, Synthroid, Ty lenol, vitamin C. PHYSICAL EXAMINATION: VITAL SIGNS: Blood pressure 147/77, mean arterial pressure of 100, respiratory rate 16, temperature afebrile. NECK: Supple. No carotid bruit. HEART: Sounds regular. CHEST: Fair air entry. EXTREMITIES: Distal muscle atrophy noted. The left side has increased tone with spasm noted on the left side. NEUROLOGIC EXAMINATION: MENTAL STATUS: He is awake, alert, oriented to person, place, and time. Speech is dysarthric from h is old stroke. CRANIAL NERVE: Visual field intact. Pupils react to light. Extraocular movement normal. No nystag mus. There is significant facial asymmetry manifesting with left facial fold flattening. Hearing se ems to be intact. Gag is intact. MOTOR: Left hemiplegia. Right side is normal. Tone is normal. No cogwheel rigidity. No tremor no ofelia at the wrist. DEEP TENDON REFLEXES: Left hyperreflexia. Plantars are upgoing on the left side. COORDINATION: Nwgzey-xhio-qewjkl test is intact. GAIT: Deferred at this time. CONCLUSION: Upon reviewing his history and neurological examination, the patient has been presenting with left hemiplegia affecting right frontoparietal region, probably secondary to middle cerebral ar ilda ischemic embolic stroke. This is old. 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 RECOMMENDATIONS: At this point, I do not want to add any other medication. We will let him continue antiplatelets with statin and angiotensin receptor blockers. The patient should continue physical t herapy and deep venous thrombosis prophylaxis. No further workup is needed from neurology. Berto Moreira MD cc: [id number] TT: 11/29/2016 17:50:10 Confirmation # [id number] Dictation # [id number] tn
[2016-11-29] MEDS: Latanoprost 0.005% Opht SOUTION OU SCH (21:36)
--- NOTE | 2016-11-30 03:20 | CP.PCM.PN ---
Subjective - Date & Time of Evaluation Date of Evaluation: 11/29/16 Time of Evaluation: 13:00 - Subjective Subjective: SEEN ON RENAL F/U SEEN ON HD FEELS AND LOOKS IMPROVED Objective - Vital Signs/Intake and Output Vital Signs (last 24 hours): Temp Pulse Resp BP Pulse Ox 98.1 F 81 20 148/76 97 11/29/16 21:45 11/29/16 21:45 11/29/16 21:45 11/29/16 21:45 11/29/16 21:45 Intake and Output: 11/29/16 11/30/16 18:59 06:59 Intake Total 240 Output Total 240 Balance 0 - Medications Medications: Current Medications Acetaminophen (Tylenol 325mg Tab) 650 mg PO Q6 PRN PRN Reason: Pain 4-10 Last Admin: 11/29/16 21:45 Dose: 650 mg Ascorbic Acid (Vitamin C 500 Mg Tab) 500 mg PO DAILY [facility] Last Admin: 11/29/16 08:28 Dose: 500 mg Aspirin (Aspirin Chewable) 81 mg PO DAILY [facility] Last Admin: 11/29/16 08:28 Dose: 81 mg Atorvastatin Calcium (Lipitor) 20 mg PO DAILY@2100 [facility] Last Admin: 11/29/16 21:26 Dose: 20 mg Clopidogrel Bisulfate (Plavix) 75 mg PO DAILY [facility] Last Admin: 11/29/16 08:28 Dose: 75 mg Donepezil HCl (Aricept) 5 mg PO HS [facility] Last Admin: 11/29/16 21:27 Dose: 5 mg Dorzolamide HCl (Trusopt) 1 drop OU 0900,2200 [facility] Last Admin: 11/29/16 21:26 Dose: 1 drop Epoetin Tyrone (Procrit) 10,000 unit IV TTS [facility] Last Admin: 11/28/16 08:30 Dose: 10,000 unit Ergocalciferol (Drisdol 50,000 Intl Units Cap) 1 cap PO LEONIDAS [facility] Last Admin: 11/23/16 08:55 Dose: 1 cap Finasteride (Proscar) 5 mg PO DAILY [facility] Last Admin: 11/29/16 08:28 Dose: 5 mg Gabapentin (Neurontin) 100 mg PO TID [facility] Last Admin: 11/29/16 17:37 Dose: 100 mg Gentamicin Sulfate (Gentamicin 0.1%) 1 applic TOP DAILY@0600 [facility] Last Admin: 11/29/16 05:54 Dose: 1 applic Heparin Sodium (Porcine) (Heparin) 5,000 units SC Q8 ANJALI PRN Reason: Protocol Last Admin: 11/29/16 21:40 Dose: 5,000 units Iron Sucrose 100 mg/ Sodium (Chloride) 105 mls @ 105 mls/hr IV TTS [facility] Last Admin: 11/28/16 09:30 Dose: 105 mls/hr Insulin Human Regular (Humulin R) 0 units SC ACHS [facility]JALI PRN Reason: Protocol Last Admin: 11/29/16 22:31 Dose: Not Given Latanoprost (Xalatan Opht) 1 drop OU HS [facility] Last Admin: 11/29/16 21:36 Dose: 1 drop Levothyroxine Sodium (Synthroid) 100 mcg PO DAILY@0630 [facility] Last Admin: 11/29/16 05:54 Dose: 100 mcg Nitroglycerin (Nitrostat Sl Tab) 0.4 mg SL Q5MIN PRN PRN Reason: Other (CHEST PAIN) Pantoprazole Sodium (Protonix Susp) 40 mg PO DAILY [facility] Last Admin: 11/29/16 08:28 Dose: 40 mg Tamsulosin HCl (Flomax) 0.4 mg PO HS [facility] Last Admin: 11/29/16 21:27 Dose: 0.4 mg Vitamin B Complex/Vit C/Folic Acid (Nephro-Prosper) 1 tab PO DAILY [facility] Last Admin: 11/29/16 08:28 Dose: 1 tab - Labs Labs: 11/21/16 06:40 11/22/16 11:20 PT 13.3 SECONDS (9.6-11.2) H 11/10/16 07:05 INR 1.28 (0.92-1.08) H 11/10/16 07:05 APTT 38.5 SECONDS (23.3-32.5) H 11/10/16 07:05 Assessment and Plan - Assessment and Plan (Free Text) Assessment: ESRD ON HD TIW ANEMIA OF CKD .. H/H STABLE CVA .. GETTING PT AND OT C/O CURRENT CARE
[2016-11-30] MEDS: Levothyroxine 100 MCG TAB PO SCH (06:27)
[2016-11-30] MEDS: Insulin Regular 100 units/ml SC SCH ×4 (06:41→22:42)
[2016-11-30] MEDS: Ergocalciferol 50,000 Intl Units Cap PO SCH (08:38)
[2016-11-30] MEDS: Dorzolamide 2% Ophth Soln OU SCH ×2 (08:38→22:41)
[2016-11-30] MEDS: Pantoprazole 40 mg Susp UD PO SCH (08:39)
[2016-11-30] MEDS: Multivitamin Vitamin B Complex (Nephro-Vite) Tab PO SCH (08:39)
--- NOTE | 2016-11-30 16:40 | CP.PCM.PN ---
Subjective - Date & Time of Evaluation Date of Evaluation: 11/30/16 Time of Evaluation: 12:00 - Subjective Subjective: no acute complaints of neck or back pain Objective - Vital Signs/Intake and Output Vital Signs (last 24 hours): Temp Pulse Resp BP Pulse Ox 96.8 F L 68 20 124/67 96 11/30/16 15:38 11/30/16 16:21 11/30/16 15:38 11/30/16 15:38 11/30/16 16:21 Intake and Output: 11/30/16 11/30/16 06:59 18:59 Intake Total 200 Output Total 300 Balance -100 - Medications Medications: Current Medications Acetaminophen (Tylenol 325mg Tab) 650 mg PO Q6 PRN PRN Reason: Pain 4-10 Last Admin: 11/29/16 21:45 Dose: 650 mg Ascorbic Acid (Vitamin C 500 Mg Tab) 500 mg PO DAILY [facility] Last Admin: 11/30/16 08:39 Dose: 500 mg Aspirin (Aspirin Chewable) 81 mg PO DAILY [facility] Last Admin: 11/30/16 08:39 Dose: 81 mg Atorvastatin Calcium (Lipitor) 20 mg PO DAILY@2100 [facility] Last Admin: 11/29/16 21:26 Dose: 20 mg Clopidogrel Bisulfate (Plavix) 75 mg PO DAILY [facility] Last Admin: 11/30/16 08:38 Dose: 75 mg Donepezil HCl (Aricept) 5 mg PO HS [facility] Last Admin: 11/29/16 21:27 Dose: 5 mg Dorzolamide HCl (Trusopt) 1 drop OU 0900,2200 [facility] Last Admin: 11/30/16 08:38 Dose: 1 drop Epoetin Tyrone (Procrit) 10,000 unit IV TTS [facility] Last Admin: 11/28/16 08:30 Dose: 10,000 unit Ergocalciferol (Drisdol 50,000 Intl Units Cap) 1 cap PO LEONIDAS [facility] Last Admin: 11/30/16 08:38 Dose: 1 cap Finasteride (Proscar) 5 mg PO DAILY [facility] Last Admin: 11/30/16 08:38 Dose: 5 mg Gabapentin (Neurontin) 100 mg PO TID [facility] Last Admin: 11/30/16 12:53 Dose: 100 mg Gentamicin Sulfate (Gentamicin 0.1%) 1 applic TOP DAILY@0600 [facility] Last Admin: 11/30/16 06:26 Dose: 1 applic Heparin Sodium (Porcine) (Heparin) 5,000 units SC Q8 ANJALI PRN Reason: Protocol Last Admin: 11/30/16 14:02 Dose: 5,000 units Iron Sucrose 100 mg/ Sodium (Chloride) 105 mls @ 105 mls/hr IV TTS [facility] Last Admin: 11/28/16 09:30 Dose: 105 mls/hr Insulin Human Regular (Humulin R) 0 units SC ACHS ANJALI PRN Reason: Protocol Last Admin: 11/30/16 11:52 Dose: 2 unit Latanoprost (Xalatan Opht) 1 drop OU HS [facility] Last Admin: 11/29/16 21:36 Dose: 1 drop Levothyroxine Sodium (Synthroid) 100 mcg PO DAILY@0630 [facility] Last Admin: 11/30/16 06:27 Dose: 100 mcg Nitroglycerin (Nitrostat Sl Tab) 0.4 mg SL Q5MIN PRN PRN Reason: Other (CHEST PAIN) Pantoprazole Sodium (Protonix Susp) 40 mg PO DAILY [facility] Last Admin: 11/30/16 08:39 Dose: 40 mg Tamsulosin HCl (Flomax) 0.4 mg PO HS [facility] Last Admin: 11/29/16 21:27 Dose: 0.4 mg Vitamin B Complex/Vit C/Folic Acid (Nephro-Prosper) 1 tab PO DAILY [facility] Last Admin: 11/30/16 08:39 Dose: 1 tab - Labs Labs: 11/21/16 06:40 11/22/16 11:20 PT 13.3 SECONDS (9.6-11.2) H 11/10/16 07:05 INR 1.28 (0.92-1.08) H 11/10/16 07:05 APTT 38.5 SECONDS (23.3-32.5) H 11/10/16 07:05 - Head Exam Head Exam: ATRAUMATIC, NORMAL INSPECTION, NORMOCEPHALIC - Eye Exam Eye Exam: EOMI, Normal appearance, PERRL Pupil Exam: NORMAL ACCOMODATION - ENT Exam ENT Exam: Mucous Membranes Moist, Normal Exam - Respiratory Exam Respiratory Exam: NORMAL BREATHING PATTERN - Cardiovascular Exam Cardiovascular Exam: REGULAR RHYTHM - GI/Abdominal Exam GI & Abdominal Exam: Normal Bowel Sounds - Rectal Exam Rectal Exam: NORMAL INSPECTION - Extremities Exam Extremities Exam: Normal Capillary Refill - Neurological Exam Neurological Exam: Alert, Awake Neuro motor strength exam: Left Upper Extremity: 2/1, Right Upper Extremity: 4, Left Lower Extremity: 2/1, Right Lower Extremity: 4 - Psychiatric Exam Psychiatric exam: Normal Affect, Normal Mood - Skin Skin Exam: Dry, Intact, Normal Color Assessment and Plan (1) CVA (cerebrovascular accident) Assessment & Plan: plan for physical, occupational and speech therapy Ambulated today with therapists Dc to subacute after few days for additional rehab Status: Acute (2) ESRD (end stage renal disease) on dialysis Status: Chronic (3) CAD (coronary artery disease) Status: Chronic
[2016-11-30] MEDS: EPOETIN ALFA 10,000 UNIT/ML ML IV SCH ×2 (18:41→23:47)
--- NOTE | 2016-11-30 20:28 | CP.PCM.PN ---
Subjective - Date & Time of Evaluation Date of Evaluation: 11/30/16 Time of Evaluation: 14:00 - Subjective Subjective: SEEN ON RENAL F/U FEELS AND LOOKS BETTER HD IS STARTING SOON URINATING OK .. THOUGH NO BLADDER SCREEN YET SEEN GETTING PT AND OT Objective - Vital Signs/Intake and Output Vital Signs (last 24 hours): Temp Pulse Resp BP Pulse Ox 97.3 F L 78 18 149/80 100 11/30/16 19:54 11/30/16 19:54 11/30/16 19:54 11/30/16 19:54 11/30/16 19:54 Intake and Output: 11/30/16 12/01/16 18:59 06:59 Intake Total 260 Balance 260 - Medications Medications: Current Medications Acetaminophen (Tylenol 325mg Tab) 650 mg PO Q6 PRN PRN Reason: Pain 4-10 Last Admin: 11/29/16 21:45 Dose: 650 mg Ascorbic Acid (Vitamin C 500 Mg Tab) 500 mg PO DAILY [facility] Last Admin: 11/30/16 08:39 Dose: 500 mg Aspirin (Aspirin Chewable) 81 mg PO DAILY [facility] Last Admin: 11/30/16 08:39 Dose: 81 mg Atorvastatin Calcium (Lipitor) 20 mg PO DAILY@2100 [facility] Last Admin: 11/29/16 21:26 Dose: 20 mg Clopidogrel Bisulfate (Plavix) 75 mg PO DAILY [facility] Last Admin: 11/30/16 08:38 Dose: 75 mg Donepezil HCl (Aricept) 5 mg PO HS [facility] Last Admin: 11/29/16 21:27 Dose: 5 mg Dorzolamide HCl (Trusopt) 1 drop OU 0900,2200 [facility] Last Admin: 11/30/16 08:38 Dose: 1 drop Epoetin Tyrone (Procrit) 10,000 unit IV TTS [facility] Last Admin: 11/30/16 18:41 Dose: 10,000 unit Ergocalciferol (Drisdol 50,000 Intl Units Cap) 1 cap PO LEONIDAS [facility] Last Admin: 11/30/16 08:38 Dose: 1 cap Finasteride (Proscar) 5 mg PO DAILY [facility] Last Admin: 11/30/16 08:38 Dose: 5 mg Gabapentin (Neurontin) 100 mg PO TID [facility] Last Admin: 11/30/16 16:55 Dose: 100 mg Gentamicin Sulfate (Gentamicin 0.1%) 1 applic TOP DAILY@0600 [facility] Last Admin: 11/30/16 06:26 Dose: 1 applic Heparin Sodium (Porcine) (Heparin) 5,000 units SC Q8 [facility] PRN Reason: Protocol Last Admin: 11/30/16 14:02 Dose: 5,000 units Iron Sucrose 100 mg/ Sodium (Chloride) 105 mls @ 105 mls/hr IV TTS [facility] Last Admin: 11/30/16 18:40 Dose: 105 mls/hr Insulin Human Regular (Humulin R) 0 units SC ACHS [facility] PRN Reason: Protocol Last Admin: 11/30/16 16:54 Dose: Not Given Latanoprost (Xalatan Opht) 1 drop OU HS [facility] Last Admin: 11/29/16 21:36 Dose: 1 drop Levothyroxine Sodium (Synthroid) 100 mcg PO DAILY@0630 [facility] Last Admin: 11/30/16 06:27 Dose: 100 mcg Nitroglycerin (Nitrostat Sl Tab) 0.4 mg SL Q5MIN PRN PRN Reason: Other (CHEST PAIN) Pantoprazole Sodium (Protonix Susp) 40 mg PO DAILY [facility] Last Admin: 11/30/16 08:39 Dose: 40 mg Tamsulosin HCl (Flomax) 0.4 mg PO HS [facility] Last Admin: 11/29/16 21:27 Dose: 0.4 mg Vitamin B Complex/Vit C/Folic Acid (Nephro-Prosper) 1 tab PO DAILY [facility] Last Admin: 11/30/16 08:39 Dose: 1 tab - Labs Labs: 11/21/16 06:40 11/22/16 11:20 PT 13.3 SECONDS (9.6-11.2) H 11/10/16 07:05 INR 1.28 (0.92-1.08) H 11/10/16 07:05 APTT 38.5 SECONDS (23.3-32.5) H 11/10/16 07:05 Assessment and Plan - Assessment and Plan (Free Text) Assessment: ESRD ON HD TTS ANEMIA OF CKD .. H/H STABLE C/O CURRENT CARE
[2016-11-30] MEDS: Latanoprost 0.005% Opht SOUTION OU SCH (23:15)
[2016-12-01] MEDS: Levothyroxine 100 MCG TAB PO SCH (06:00)
[2016-12-01] MEDS: Insulin Regular 100 units/ml SC SCH ×4 (07:13→21:52)
--- NOTE | 2016-12-01 08:04 | CP.PCM.CON ---
History of Present Illness - History of Present Illness History of Present Illness: Pt seen for supportive therapy 7:40-8. Pt discussed readiness for discharge to sub acute. Pt spoke of gains made, progress, ambulation and desire for continued gains and recovery. Support provided and strategies for coping, pt adjusting well and spoke of feeling cared for. plan: Continued Sup therapy Past Patient History - Past Medical History & Family History Past Medical History?: Yes - Past Social History Smoking Status: Former Smoker Chewing Tobacco Use: No Cigar Use: No Alcohol: Social Drugs: Denies Home Situation {Lives}: With Family - CARDIAC Hx Hypertension: Yes - PULMONARY Hx Respiratory Disorders: No - NEUROLOGICAL HX Cerebrovascular Accident: Yes - HEENT Hx HEENT Problems: No - RENAL Hx Renal Failure: Yes - ENDOCRINE/METABOLIC Hx Diabetes Mellitus Type 2: Yes Hx Hypothyroidism: Yes - HEMATOLOGICAL/ONCOLOGICAL Hx Blood Disorders: No - INTEGUMENTARY Hx Dermatological Problems: No - MUSCULOSKELETAL/RHEUMATOLOGICAL Hx Musculoskeletal Disorders: No - GASTROINTESTINAL Hx Gastrointestinal Disorders: No - GENITOURINARY/GYNECOLOGICAL Hx Genitourinary Disorders: No - PSYCHIATRIC Hx Psychophysiologic Disorder: Yes - SURGICAL HISTORY Hx Surgeries: Yes Other/Comment: CABG 2006 - ANESTHESIA Hx Anesthesia: Yes Hx Anesthesia Reactions: No Meds Allergies/Adverse Reactions: Allergies Allergy/AdvReac Type Severity Reaction Status Date / Time No Known Allergies Allergy Verified 11/09/16 20:29 - Medications Medications: Current Medications Acetaminophen (Tylenol 325mg Tab) 650 mg PO Q6 PRN PRN Reason: Pain 4-10 Last Admin: 12/01/16 04:01 Dose: 650 mg Ascorbic Acid (Vitamin C 500 Mg Tab) 500 mg PO DAILY [facility] Last Admin: 11/30/16 08:39 Dose: 500 mg Aspirin (Aspirin Chewable) 81 mg PO DAILY [facility] Last Admin: 11/30/16 08:39 Dose: 81 mg Atorvastatin Calcium (Lipitor) 20 mg PO DAILY@2100 [facility] Last Admin: 11/30/16 22:40 Dose: 20 mg Clopidogrel Bisulfate (Plavix) 75 mg PO DAILY [facility] Last Admin: 11/30/16 08:38 Dose: 75 mg Donepezil HCl (Aricept) 5 mg PO HS [facility] Last Admin: 11/30/16 22:39 Dose: 5 mg Dorzolamide HCl (Trusopt) 1 drop OU 0900,2200 [facility] Last Admin: 11/30/16 22:41 Dose: 1 drop Epoetin Tyrone (Procrit) 10,000 unit IV TTS [facility] Last Admin: 11/30/16 23:47 Dose: Not Given Ergocalciferol (Drisdol 50,000 Intl Units Cap) 1 cap PO LEONIDAS [facility] Last Admin: 11/30/16 08:38 Dose: 1 cap Finasteride (Proscar) 5 mg PO DAILY [facility] Last Admin: 11/30/16 08:38 Dose: 5 mg Gabapentin (Neurontin) 100 mg PO TID [facility] Last Admin: 11/30/16 16:55 Dose: 100 mg Gentamicin Sulfate (Gentamicin 0.1%) 1 applic TOP DAILY@0600 [facility] Last Admin: 12/01/16 05:59 Dose: 1 applic Heparin Sodium (Porcine) (Heparin) 5,000 units SC Q8 [facility] PRN Reason: Protocol Last Admin: 12/01/16 05:59 Dose: 5,000 units Iron Sucrose 100 mg/ Sodium (Chloride) 105 mls @ 105 mls/hr IV TTS [facility] Last Admin: 11/30/16 23:48 Dose: Not Given Insulin Human Regular (Humulin R) 0 units SC ACHS [facility] PRN Reason: Protocol Last Admin: 12/01/16 07:13 Dose: Not Given Latanoprost (Xalatan Opht) 1 drop OU HS [facility] Last Admin: 11/30/16 23:15 Dose: 1 drop Levothyroxine Sodium (Synthroid) 100 mcg PO DAILY@0630 [facility] Last Admin: 12/01/16 06:00 Dose: 100 mcg Nitroglycerin (Nitrostat Sl Tab) 0.4 mg SL Q5MIN PRN PRN Reason: Other (CHEST PAIN) Pantoprazole Sodium (Protonix Susp) 40 mg PO DAILY [facility] Last Admin: 11/30/16 08:39 Dose: 40 mg Tamsulosin HCl (Flomax) 0.4 mg PO HS [facility] Last Admin: 11/30/16 22:39 Dose: 0.4 mg Vitamin B Complex/Vit C/Folic Acid (Nephro-Prosper) 1 tab PO DAILY [facility] Last Admin: 11/30/16 08:39 Dose: 1 tab Results - Vital Signs Recent Vital Signs: Last Vital Signs Temp 98.2 F 12/01/16 04:01 Pulse 87 12/01/16 04:01 Resp 20 12/01/16 04:01 BP 138/73 12/01/16 04:01 Pulse Ox 97 12/01/16 04:01 - Labs Result Diagrams: 11/21/16 06:40 11/22/16 11:20 Labs: Laboratory Results - last 24 hr 11/30/16 11/30/16 11/30/16 11:19 11:47 15:44 POC Glucose (mg/dL) 202 H 140 H Hep Bs Antigen Negative Hep Bs Antibody Negative Hep B Core IgM Ab Negative 11/30/16 12/01/16 20:49 06:01 POC Glucose (mg/dL) 109 83 Hep Bs Antigen Hep Bs Antibody Hep B Core IgM Ab
[2016-12-01] MEDS: Pantoprazole 40 mg Susp UD PO SCH (08:35)
[2016-12-01] MEDS: Multivitamin Vitamin B Complex (Nephro-Vite) Tab PO SCH (08:35)
[2016-12-01] MEDS: Dorzolamide 2% Ophth Soln OU SCH ×2 (08:36→21:48)
--- NOTE | 2016-12-01 11:53 | CP.PCM.PN ---
Subjective - Date & Time of Evaluation Date of Evaluation: 12/01/16 Time of Evaluation: 11:00 - Subjective Subjective: no acute complaints of arm or leg pain Objective - Vital Signs/Intake and Output Vital Signs (last 24 hours): Temp Pulse Resp BP Pulse Ox 98.2 F 92 H 18 106/58 L 97 12/01/16 10:00 12/01/16 10:00 12/01/16 10:00 12/01/16 10:00 12/01/16 10:00 - Medications Medications: Current Medications Acetaminophen (Tylenol 325mg Tab) 650 mg PO Q6 PRN PRN Reason: Pain 4-10 Last Admin: 12/01/16 04:01 Dose: 650 mg Ascorbic Acid (Vitamin C 500 Mg Tab) 500 mg PO DAILY [facility] Last Admin: 12/01/16 08:35 Dose: 500 mg Aspirin (Aspirin Chewable) 81 mg PO DAILY [facility] Last Admin: 12/01/16 08:35 Dose: 81 mg Atorvastatin Calcium (Lipitor) 20 mg PO DAILY@2100 [facility] Last Admin: 11/30/16 22:40 Dose: 20 mg Clopidogrel Bisulfate (Plavix) 75 mg PO DAILY [facility] Last Admin: 12/01/16 08:36 Dose: 75 mg Donepezil HCl (Aricept) 5 mg PO HS [facility] Last Admin: 11/30/16 22:39 Dose: 5 mg Dorzolamide HCl (Trusopt) 1 drop OU 0900,2200 [facility] Last Admin: 12/01/16 08:36 Dose: 1 drop Epoetin Tyrone (Procrit) 10,000 unit IV TTS [facility] Last Admin: 11/30/16 23:47 Dose: Not Given Ergocalciferol (Drisdol 50,000 Intl Units Cap) 1 cap PO LEONIDAS [facility] Last Admin: 11/30/16 08:38 Dose: 1 cap Finasteride (Proscar) 5 mg PO DAILY [facility] Last Admin: 12/01/16 08:36 Dose: 5 mg Gabapentin (Neurontin) 100 mg PO TID [facility] Last Admin: 12/01/16 08:35 Dose: 100 mg Gentamicin Sulfate (Gentamicin 0.1%) 1 applic TOP DAILY@0600 [facility] Last Admin: 12/01/16 05:59 Dose: 1 applic Heparin Sodium (Porcine) (Heparin) 5,000 units SC Q8 [facility] PRN Reason: Protocol Last Admin: 12/01/16 05:59 Dose: 5,000 units Iron Sucrose 100 mg/ Sodium (Chloride) 105 mls @ 105 mls/hr IV TTS [facility] Last Admin: 11/30/16 23:48 Dose: Not Given Insulin Human Regular (Humulin R) 0 units SC ACHS [facility] PRN Reason: Protocol Last Admin: 12/01/16 07:13 Dose: Not Given Latanoprost (Xalatan Opht) 1 drop OU HS [facility] Last Admin: 11/30/16 23:15 Dose: 1 drop Levothyroxine Sodium (Synthroid) 100 mcg PO DAILY@0630 [facility] Last Admin: 12/01/16 06:00 Dose: 100 mcg Nitroglycerin (Nitrostat Sl Tab) 0.4 mg SL Q5MIN PRN PRN Reason: Other (CHEST PAIN) Pantoprazole Sodium (Protonix Susp) 40 mg PO DAILY [facility] Last Admin: 12/01/16 08:35 Dose: 40 mg Tamsulosin HCl (Flomax) 0.4 mg PO HS [facility] Last Admin: 11/30/16 22:39 Dose: 0.4 mg Vitamin B Complex/Vit C/Folic Acid (Nephro-Prosper) 1 tab PO DAILY [facility] Last Admin: 12/01/16 08:35 Dose: 1 tab - Labs Labs: 11/21/16 06:40 11/22/16 11:20 PT 13.3 SECONDS (9.6-11.2) H 11/10/16 07:05 INR 1.28 (0.92-1.08) H 11/10/16 07:05 APTT 38.5 SECONDS (23.3-32.5) H 11/10/16 07:05 - Head Exam Head Exam: ATRAUMATIC, NORMAL INSPECTION, NORMOCEPHALIC - Eye Exam Eye Exam: EOMI, Normal appearance, PERRL Pupil Exam: NORMAL ACCOMODATION - ENT Exam ENT Exam: Mucous Membranes Moist, Normal Exam - Respiratory Exam Respiratory Exam: NORMAL BREATHING PATTERN - Cardiovascular Exam Cardiovascular Exam: REGULAR RHYTHM - GI/Abdominal Exam GI & Abdominal Exam: Soft, Normal Bowel Sounds - Rectal Exam Rectal Exam: NORMAL INSPECTION - Extremities Exam Extremities Exam: Normal Capillary Refill - Neurological Exam Neurological Exam: Alert, Awake Neuro motor strength exam: Left Upper Extremity: 2/1, Right Upper Extremity: 4, Left Lower Extremity: 2/1, Right Lower Extremity: 4 - Psychiatric Exam Psychiatric exam: Normal Affect, Normal Mood - Skin Skin Exam: Dry, Intact Assessment and Plan (1) CVA (cerebrovascular accident) Assessment & Plan: plan for physical, occupational, rec therapy and speech therapy patinet with jeanette wrap and arm sling to continue at present Status: Acute (2) ESRD (end stage renal disease) on dialysis Status: Chronic (3) CAD (coronary artery disease) Status: Chronic
--- NOTE | 2016-12-01 16:00 | CP.PCM.PN ---
Subjective - Date & Time of Evaluation Date of Evaluation: 12/01/16 Time of Evaluation: 11:20 - Subjective Subjective: Pt seen and examined. Had numbness of the right hand the other day but now has cleared up. Objective - Vital Signs/Intake and Output Vital Signs (last 24 hours): Temp Pulse Resp BP Pulse Ox 98.2 F 92 H 18 106/58 L 97 12/01/16 10:00 12/01/16 10:00 12/01/16 10:00 12/01/16 10:00 12/01/16 10:00 - Medications Medications: Current Medications Acetaminophen (Tylenol 325mg Tab) 650 mg PO Q6 PRN PRN Reason: Pain 4-10 Last Admin: 12/01/16 04:01 Dose: 650 mg Ascorbic Acid (Vitamin C 500 Mg Tab) 500 mg PO DAILY [facility] Last Admin: 12/01/16 08:35 Dose: 500 mg Aspirin (Aspirin Chewable) 81 mg PO DAILY [facility] Last Admin: 12/01/16 08:35 Dose: 81 mg Atorvastatin Calcium (Lipitor) 20 mg PO DAILY@2100 [facility] Last Admin: 11/30/16 22:40 Dose: 20 mg Clopidogrel Bisulfate (Plavix) 75 mg PO DAILY [facility] Last Admin: 12/01/16 08:36 Dose: 75 mg Donepezil HCl (Aricept) 5 mg PO HS [facility] Last Admin: 11/30/16 22:39 Dose: 5 mg Dorzolamide HCl (Trusopt) 1 drop OU 0900,2200 [facility] Last Admin: 12/01/16 08:36 Dose: 1 drop Epoetin Tyrone (Procrit) 10,000 unit IV TTS [facility] Last Admin: 11/30/16 23:47 Dose: Not Given Ergocalciferol (Drisdol 50,000 Intl Units Cap) 1 cap PO LEONIDAS [facility] Last Admin: 11/30/16 08:38 Dose: 1 cap Finasteride (Proscar) 5 mg PO DAILY [facility] Last Admin: 12/01/16 08:36 Dose: 5 mg Gabapentin (Neurontin) 100 mg PO TID [facility] Last Admin: 12/01/16 12:31 Dose: 100 mg Gentamicin Sulfate (Gentamicin 0.1%) 1 applic TOP DAILY@0600 [facility] Last Admin: 12/01/16 05:59 Dose: 1 applic Heparin Sodium (Porcine) (Heparin) 5,000 units SC Q8 [facility] PRN Reason: Protocol Last Admin: 12/01/16 13:20 Dose: 5,000 units Iron Sucrose 100 mg/ Sodium (Chloride) 105 mls @ 105 mls/hr IV TTS [facility] Last Admin: 11/30/16 23:48 Dose: Not Given Insulin Human Regular (Humulin R) 0 units SC ACHS [facility] PRN Reason: Protocol Last Admin: 12/01/16 12:30 Dose: 2 unit Latanoprost (Xalatan Opht) 1 drop OU HS [facility] Last Admin: 11/30/16 23:15 Dose: 1 drop Levothyroxine Sodium (Synthroid) 100 mcg PO DAILY@0630 [facility] Last Admin: 12/01/16 06:00 Dose: 100 mcg Nitroglycerin (Nitrostat Sl Tab) 0.4 mg SL Q5MIN PRN PRN Reason: Other (CHEST PAIN) Pantoprazole Sodium (Protonix Susp) 40 mg PO DAILY [facility] Last Admin: 12/01/16 08:35 Dose: 40 mg Tamsulosin HCl (Flomax) 0.4 mg PO HS [facility] Last Admin: 11/30/16 22:39 Dose: 0.4 mg Vitamin B Complex/Vit C/Folic Acid (Nephro-Prosper) 1 tab PO DAILY [facility] Last Admin: 12/01/16 08:35 Dose: 1 tab - Labs Labs: 11/21/16 06:40 11/22/16 11:20 PT 13.3 SECONDS (9.6-11.2) H 11/10/16 07:05 INR 1.28 (0.92-1.08) H 11/10/16 07:05 APTT 38.5 SECONDS (23.3-32.5) H 11/10/16 07:05 - Constitutional Appears: No Acute Distress - Head Exam Head Exam: ATRAUMATIC - Eye Exam Eye Exam: absent: Scleral icterus - ENT Exam ENT Exam: Mucous Membranes Moist - Neck Exam Neck Exam: absent: Meningismus - Respiratory Exam Respiratory Exam: absent: Rhonchi, Wheezes, Respiratory Distress - Cardiovascular Exam Cardiovascular Exam: REGULAR RHYTHM, +S1, +S2 - GI/Abdominal Exam GI & Abdominal Exam: Soft. absent: Tenderness - Rectal Exam Rectal Exam: Deferred - Neurological Exam Neurological Exam: Alert, Oriented x3 - Psychiatric Exam Psychiatric exam: Normal Affect - Skin Skin Exam: Dry, Intact Assessment and Plan - Assessment and Plan (Free Text) Assessment: 61 yo male with history of HTN, CAD, ESRD (on HD TThSa), DM2 and previous CVA transferred from [facility] where he was admitted for Acute CVA with right sided weakness to Acute rehab for continuation of PT/OT. (1) CVA (cerebrovascular accident) continue doing well with PT/OT continue ASA and Lipitor (2) CAD (coronary artery disease) continue ASA, Plavix, Lipitor and Coreg (3) HTN (hypertension) BP stable since all BP meds were DC BP medications DC because of orthostatic hypotension (4) ESRD (end stage renal disease) on dialysis for dialysis tomorrow (5) History of urinary retention resolved continue Flomax and Proscar (6) Anemia in chronic kidney disease (CKD) Procrit 10,000 IV [id number] Iron 100 mg IV [id number] (7) Hypothyroid Levothyroxine 100 mcg PO daily (8) Prophylactic measure Heparin 5,000 Units SQ Q8H Protonix 40 mg PO daily
--- NOTE | 2016-12-01 19:15 | CP.PCM.PN ---
Subjective - Date & Time of Evaluation Date of Evaluation: 12/01/16 Time of Evaluation: 14:00 - Subjective Subjective: SEEN ON RENAL F/U ON HD TTS FEELS IMPROVED Objective - Vital Signs/Intake and Output Vital Signs (last 24 hours): Temp Pulse Resp BP Pulse Ox 97.7 F 87 20 104/57 L 100 12/01/16 16:09 12/01/16 16:09 12/01/16 16:09 12/01/16 16:09 12/01/16 16:09 Intake and Output: 12/01/16 12/02/16 18:59 06:59 Intake Total 600 Balance 600 - Medications Medications: Current Medications Acetaminophen (Tylenol 325mg Tab) 650 mg PO Q6 PRN PRN Reason: Pain 4-10 Last Admin: 12/01/16 04:01 Dose: 650 mg Ascorbic Acid (Vitamin C 500 Mg Tab) 500 mg PO DAILY [facility] Last Admin: 12/01/16 08:35 Dose: 500 mg Aspirin (Aspirin Chewable) 81 mg PO DAILY [facility] Last Admin: 12/01/16 08:35 Dose: 81 mg Atorvastatin Calcium (Lipitor) 20 mg PO DAILY@2100 [facility] Last Admin: 11/30/16 22:40 Dose: 20 mg Clopidogrel Bisulfate (Plavix) 75 mg PO DAILY [facility] Last Admin: 12/01/16 08:36 Dose: 75 mg Donepezil HCl (Aricept) 5 mg PO HS [facility] Last Admin: 11/30/16 22:39 Dose: 5 mg Dorzolamide HCl (Trusopt) 1 drop OU 0900,2200 [facility] Last Admin: 12/01/16 08:36 Dose: 1 drop Epoetin Tyrone (Procrit) 10,000 unit IV TTS [facility] Last Admin: 11/30/16 23:47 Dose: Not Given Ergocalciferol (Drisdol 50,000 Intl Units Cap) 1 cap PO LEONIDAS [facility] Last Admin: 11/30/16 08:38 Dose: 1 cap Finasteride (Proscar) 5 mg PO DAILY [facility] Last Admin: 12/01/16 08:36 Dose: 5 mg Gabapentin (Neurontin) 100 mg PO TID [facility] Last Admin: 12/01/16 16:47 Dose: 100 mg Gentamicin Sulfate (Gentamicin 0.1%) 1 applic TOP DAILY@0600 [facility] Last Admin: 12/01/16 05:59 Dose: 1 applic Heparin Sodium (Porcine) (Heparin) 5,000 units SC Q8 [facility] PRN Reason: Protocol Last Admin: 12/01/16 13:20 Dose: 5,000 units Iron Sucrose 100 mg/ Sodium (Chloride) 105 mls @ 105 mls/hr IV TTS [facility] Last Admin: 11/30/16 23:48 Dose: Not Given Insulin Human Regular (Humulin R) 0 units SC ACHS [facility] PRN Reason: Protocol Last Admin: 12/01/16 16:12 Dose: Not Given Latanoprost (Xalatan Opht) 1 drop OU HS [facility] Last Admin: 11/30/16 23:15 Dose: 1 drop Levothyroxine Sodium (Synthroid) 100 mcg PO DAILY@0630 [facility] Last Admin: 12/01/16 06:00 Dose: 100 mcg Nitroglycerin (Nitrostat Sl Tab) 0.4 mg SL Q5MIN PRN PRN Reason: Other (CHEST PAIN) Pantoprazole Sodium (Protonix Susp) 40 mg PO DAILY [facility] Last Admin: 12/01/16 08:35 Dose: 40 mg Tamsulosin HCl (Flomax) 0.4 mg PO HS [facility] Last Admin: 11/30/16 22:39 Dose: 0.4 mg Vitamin B Complex/Vit C/Folic Acid (Nephro-Prosper) 1 tab PO DAILY [facility] Last Admin: 12/01/16 08:35 Dose: 1 tab - Labs Labs: 11/21/16 06:40 11/22/16 11:20 PT 13.3 SECONDS (9.6-11.2) H 11/10/16 07:05 INR 1.28 (0.92-1.08) H 11/10/16 07:05 APTT 38.5 SECONDS (23.3-32.5) H 11/10/16 07:05 Assessment and Plan - Assessment and Plan (Free Text) Assessment: ESRD ON HD TTS .. TO BE C/O ANEMIA OF CKD .. H/H STABLE URINARY RETENTION .. WAS TREATED CONSERVATIVELY NOW URINATING WELL C/O CURRENT CARE
[2016-12-01] MEDS: Latanoprost 0.005% Opht SOUTION OU SCH (22:03)
[2016-12-02] MEDS: Levothyroxine 100 MCG TAB PO SCH (06:18)
[2016-12-02] MEDS: Insulin Regular 100 units/ml SC SCH ×4 (06:46→21:43)
[2016-12-02] MEDS: Pantoprazole 40 mg Susp UD PO SCH (08:30)
[2016-12-02] MEDS: Dorzolamide 2% Ophth Soln OU SCH ×2 (08:31→21:33)
[2016-12-02] MEDS: Multivitamin Vitamin B Complex (Nephro-Vite) Tab PO SCH (08:31)
[2016-12-02] MEDS: EPOETIN ALFA 10,000 UNIT/ML ML IV SCH (19:32)
--- NOTE | 2016-12-02 19:46 | CP.PCM.PN ---
Subjective - Date & Time of Evaluation Date of Evaluation: 12/02/16 Time of Evaluation: 19:45 - Subjective Subjective: refusing hd risks explained for transfer to [facility] soon cont rx and support. Objective - Vital Signs/Intake and Output Vital Signs (last 24 hours): Temp Pulse Resp BP Pulse Ox 96.6 F L 83 20 149/81 97 12/02/16 16:14 12/02/16 16:14 12/02/16 16:14 12/02/16 16:14 12/02/16 16:14 - Medications Medications: Current Medications Acetaminophen (Tylenol 325mg Tab) 650 mg PO Q6 PRN PRN Reason: Pain 4-10 Last Admin: 12/02/16 12:27 Dose: 650 mg Ascorbic Acid (Vitamin C 500 Mg Tab) 500 mg PO DAILY [facility] Last Admin: 12/02/16 08:31 Dose: 500 mg Aspirin (Aspirin Chewable) 81 mg PO DAILY [facility] Last Admin: 12/02/16 08:31 Dose: 81 mg Atorvastatin Calcium (Lipitor) 20 mg PO DAILY@2100 [facility] Last Admin: 12/01/16 21:48 Dose: 20 mg Clopidogrel Bisulfate (Plavix) 75 mg PO DAILY [facility] Last Admin: 12/02/16 08:31 Dose: 75 mg Donepezil HCl (Aricept) 5 mg PO HS [facility] Last Admin: 12/01/16 21:49 Dose: 5 mg Dorzolamide HCl (Trusopt) 1 drop OU 0900,2200 [facility] Last Admin: 12/02/16 08:31 Dose: 1 drop Epoetin Tyrone (Procrit) 10,000 unit IV TTS [facility] Last Admin: 12/02/16 19:32 Dose: Not Given Ergocalciferol (Drisdol 50,000 Intl Units Cap) 1 cap PO LEONIDAS [facility] Last Admin: 11/30/16 08:38 Dose: 1 cap Finasteride (Proscar) 5 mg PO DAILY [facility] Last Admin: 12/02/16 08:31 Dose: 5 mg Gabapentin (Neurontin) 100 mg PO TID [facility] Last Admin: 12/02/16 17:19 Dose: 100 mg Gentamicin Sulfate (Gentamicin 0.1%) 1 applic TOP DAILY@0600 [facility] Last Admin: 12/02/16 06:18 Dose: 1 applic Heparin Sodium (Porcine) (Heparin) 5,000 units SC Q8 [facility] PRN Reason: Protocol Last Admin: 12/02/16 13:51 Dose: 5,000 units Iron Sucrose 100 mg/ Sodium (Chloride) 105 mls @ 105 mls/hr IV TTS [facility] Last Admin: 12/02/16 19:32 Dose: Not Given Insulin Human Regular (Humulin R) 0 units SC ACHS [facility] PRN Reason: Protocol Last Admin: 12/02/16 16:52 Dose: Not Given Latanoprost (Xalatan Opht) 1 drop OU HS [facility] Last Admin: 12/01/16 22:03 Dose: 1 drop Levothyroxine Sodium (Synthroid) 100 mcg PO DAILY@0630 [facility] Last Admin: 12/02/16 06:18 Dose: 100 mcg Nitroglycerin (Nitrostat Sl Tab) 0.4 mg SL Q5MIN PRN PRN Reason: Other (CHEST PAIN) Pantoprazole Sodium (Protonix Susp) 40 mg PO DAILY [facility] Last Admin: 12/02/16 08:30 Dose: 40 mg Tamsulosin HCl (Flomax) 0.4 mg PO HS [facility] Last Admin: 12/01/16 21:49 Dose: 0.4 mg Vitamin B Complex/Vit C/Folic Acid (Nephro-Prosper) 1 tab PO DAILY [facility] Last Admin: 12/02/16 08:31 Dose: 1 tab - Labs Labs: 11/21/16 06:40 11/22/16 11:20 PT 13.3 SECONDS (9.6-11.2) H 11/10/16 07:05 INR 1.28 (0.92-1.08) H 11/10/16 07:05 APTT 38.5 SECONDS (23.3-32.5) H 11/10/16 07:05 - Constitutional Appears: Non-toxic - Head Exam Head Exam: NORMAL INSPECTION - Eye Exam Eye Exam: Normal appearance - ENT Exam ENT Exam: Mucous Membranes Moist - Respiratory Exam Respiratory Exam: NORMAL BREATHING PATTERN - Cardiovascular Exam Cardiovascular Exam: REGULAR RHYTHM - GI/Abdominal Exam GI & Abdominal Exam: Soft - Neurological Exam Neurological Exam: Alert, Awake - Psychiatric Exam Psychiatric exam: Agitated - Skin Skin Exam: Dry, Warm
[2016-12-02] MEDS: Latanoprost 0.005% Opht SOUTION OU SCH (21:40)
[2016-12-03] MEDS: Levothyroxine 100 MCG TAB PO SCH (06:17)
[2016-12-03] MEDS: Insulin Regular 100 units/ml SC SCH ×2 (07:42→11:12)
[2016-12-03 07:44] VITALS: BP 155/79; PULSE 82; RESP 18; TEMP 98.1; O2SAT 97
[2016-12-03] MEDS: Pantoprazole 40 mg Susp UD PO SCH (08:33)
[2016-12-03] MEDS: Dorzolamide 2% Ophth Soln OU SCH (08:34)
[2016-12-03] MEDS: Multivitamin Vitamin B Complex (Nephro-Vite) Tab PO SCH (08:34)
--- NOTE | 2016-12-03 12:00 | CP.PCM.DIS ---
Provider - Provider Date of Admission: 11/09/16 20:29 Attending physician: Esha Hartman DO Consults: Dr Susy Nicole Time Spent in preparation of Discharge (in minutes): 35 Hospital Course - Lab Results Lab Results: Most Recent Lab Values WBC 7.1 K/uL (4.8-10.8) 11/21/16 06:40 RBC 3.58 Mil/uL (4.40-5.90) L 11/21/16 06:40 Hgb 10.4 g/dL (12.0-18.0) L 11/21/16 06:40 Hct 32.6 % (35.0-51.0) L 11/21/16 06:40 MCV 91.2 fl (80.0-94.0) D 11/21/16 06:40 MCH 29.2 pg (27.0-31.0) 11/21/16 06:40 MCHC 32.0 g/dL (33.0-37.0) L 11/21/16 06:40 RDW 16.5 % (11.5-14.5) H 11/21/16 06:40 Plt Count 158 K/uL (130-400) 11/21/16 06:40 MPV 7.6 fl (7.2-11.7) 11/21/16 06:40 Neut % (Auto) 44.6 % (50.0-75.0) L 11/21/16 06:40 Lymph % (Auto) 35.1 % (20.0-40.0) 11/21/16 06:40 Grady % (Auto) 13.3 % (0.0-10.0) H 11/21/16 06:40 Eos % (Auto) 6.2 % (0.0-4.0) H 11/21/16 06:40 Baso % (Auto) 0.8 % (0.0-2.0) 11/21/16 06:40 Neut # 3.2 K/uL (1.8-7.0) 11/21/16 06:40 Lymph # 2.5 K/uL (1.0-4.3) 11/21/16 06:40 Grady # 0.9 K/uL (0.0-0.8) H 11/21/16 06:40 Eos # 0.4 K/uL (0.0-0.7) 11/21/16 06:40 Baso # 0.1 K/uL (0.0-0.2) 11/21/16 06:40 PT 13.3 SECONDS (9.6-11.2) H 11/10/16 07:05 INR 1.28 (0.92-1.08) H 11/10/16 07:05 APTT 38.5 SECONDS (23.3-32.5) H 11/10/16 07:05 Sodium 135 mmol/l (132-148) 11/22/16 11:20 Potassium 4.5 MMOL/L (3.6-5.0) 11/22/16 11:20 Chloride 98 mmol/L (98-107) 11/22/16 11:20 Carbon Dioxide 26 mmol/L (22-30) 11/22/16 11:20 Anion Gap 15 (10-20) 11/22/16 11:20 BUN 36 mg/dl (9-20) H 11/22/16 11:20 Creatinine 5.8 mg/dL (0.8-1.5) H 11/22/16 11:20 Est GFR ( Amer) 12 11/22/16 11:20 Est GFR (Non-Af Amer) 10 11/22/16 11:20 POC Glucose (mg/dL) 115 mg/dL (65-110) H 12/03/16 06:09 Random Glucose 186 mg/dL (75-110) H 11/22/16 11:20 Uric Acid 3.9 mg/Dl (3.5-8.5) 11/10/16 09:46 Calcium 8.2 mg/dL (8.4-10.2) L 11/22/16 11:20 Phosphorus 3.2 mg/dl (2.5-4.5) 11/10/16 09:46 Magnesium 2.1 MG/DL (1.6-2.3) 11/10/16 07:05 Total Bilirubin 0.3 mg/dl (0.2-1.3) 11/21/16 06:40 AST 25 U/L (17-59) 11/21/16 06:40 ALT 18 U/L (21-72) L 11/21/16 06:40 Alkaline Phosphatase 111 U/L (38-126) 11/21/16 06:40 Total Protein 7.1 G/DL (6.3-8.2) 11/21/16 06:40 Albumin 3.1 g/dL (3.5-5.0) L 11/21/16 06:40 Globulin 3.9 gm/dL (2.2-3.9) 11/21/16 06:40 Albumin/Globulin Ratio 0.8 (1.0-2.1) L 11/21/16 06:40 25-OH Vitamin D Total < 12.8 NG/ML (30.0-100.0) L 11/10/16 10:48 PTH Intact Whole Molec 96 pg/mL (14-64) H 11/10/16 10:48 Hep Bs Antigen Negative (NEGATIVE) 11/30/16 11:19 Hep Bs Antibody Negative (NEGATIVE) 11/30/16 11:19 Hep B Core Total Ab Non reactive (Non Reactive) 12/01/16 13:41 Hep B Core IgM Ab Negative (NEGATIVE) 11/30/16 11:19 Hepatitis C Antibody Negative (NEGATIVE) 11/11/16 14:40 - Hospital Course Hospital Course: 61 yo male with history of HTN, CAD, ESRD, DM2 and previous CVA admitted at [facility] because of acute CVA with right sided weakness. He was transferred to Acute Rehab to continue PT/OT and did well. Patient is now for transfer to [facility] where he would continue his rehab. (1) CVA (cerebrovascular accident) continue ASA and Lipitor discharge to [facility] (2) CAD (coronary artery disease) continue ASA, Plavix, Lipitor and Coreg (3) HTN (hypertension) off BP medications with stable BP (4) ESRD (end stage renal disease) on dialysis on dialysis TThSa (5) History of urinary retention resolved continue Flomax and Proscar (6) Anemia in chronic kidney disease (CKD) Procrit 10,000 IV [id number] Iron 100 mg IV [id number] (7) Hypothyroid Levothyroxine 100 mcg PO daily (8) Prophylactic measure Heparin 5,000 Units SQ Q8H Protonix 40 mg PO daily Discharge Exam - Head Exam Head Exam: NORMAL INSPECTION - Eye Exam Eye Exam: absent: Scleral icterus - ENT Exam ENT Exam: Mucous Membranes Moist - Respiratory Exam Respiratory Exam: absent: Wheezes, Respiratory Distress - Cardiovascular Exam Cardiovascular Exam: REGULAR RHYTHM, +S1, +S2 - GI/Abdominal Exam GI & Abdominal Exam: Soft. absent: Tenderness - Rectal Exam Rectal Exam: Deferred - Neurological Exam Neurological exam: Alert, Oriented x3 - Psychiatric Exam Psychiatric exam: Normal Affect - Skin Skin Exam: Dry, Intact Discharge Plan - Follow Up Plan Condition: GOOD Disposition: HOME/ ROUTINE
== END 2016-12-03 15:00 | disposition home or self-care (01) | DRG 56 ==
LOC: EDSEX 20:29
PROVIDERS: ADMIT Student in an Organized Health Care Education/Training Program; ATTEND Student in an Organized Health Care Education/Training Program
PROC: F07Z9FZ Gait Training/Functional Ambulation Treatment using Assistive, Adaptive, Supportive or Protective Equipment (ICD-10-PCS; principal; 2016-11-09)
PROC: F08Z4FZ Home Management Treatment using Assistive, Adaptive, Supportive or Protective Equipment (ICD-10-PCS; 2016-11-10)
PROC: F07M6FZ Therapeutic Exercise Treatment of Musculoskeletal System - Whole Body using Assistive, Adaptive, Supportive or Protective Equipment (ICD-10-PCS; 2016-11-10)
PROC: 5A1D60Z (ICD-10-PCS; 2016-11-11)
PROC: 0HBRXZZ Excision of Toe Nail, External Approach (ICD-10-PCS; 2016-11-16)
PROC: 0HBRXZZ Excision of Toe Nail, External Approach (ICD-10-PCS; 2016-11-16)
PROC: 0HBRXZZ Excision of Toe Nail, External Approach (ICD-10-PCS; 2016-11-16)
PROC: 0HBRXZZ Excision of Toe Nail, External Approach (ICD-10-PCS; 2016-11-16)
PROC: 0HBRXZZ Excision of Toe Nail, External Approach (ICD-10-PCS; 2016-11-16)
PROC: 0HBRXZZ Excision of Toe Nail, External Approach (ICD-10-PCS; 2016-11-16)
PROC: 0HBRXZZ Excision of Toe Nail, External Approach (ICD-10-PCS; 2016-11-16)
PROC: 0HBRXZZ Excision of Toe Nail, External Approach (ICD-10-PCS; 2016-11-16)
PROC: 0HBRXZZ Excision of Toe Nail, External Approach (ICD-10-PCS; 2016-11-16)
PROC: 0HBRXZZ Excision of Toe Nail, External Approach (ICD-10-PCS; 2016-11-16)
DX: I69.354 Hemiplegia and hemiparesis following cerebral infarction affecting left non-dominant side (principal); N18.6 End stage renal disease; E11.22 Type 2 diabetes mellitus with diabetic chronic kidney disease; I12.0 Hypertensive chronic kidney disease with stage 5 chronic kidney disease or end stage renal disease; R13.19 Other dysphagia; B35.1 Tinea unguium; G60.8 Other hereditary and idiopathic neuropathies; D63.1 Anemia in chronic kidney disease; I69.322 Dysarthria following cerebral infarction; I69.392 Facial weakness following cerebral infarction; E87.6 Hypokalemia; E03.9 Hypothyroidism, unspecified; I69.398 Other sequelae of cerebral infarction; H53.8 Other visual disturbances; I69.391 Dysphagia following cerebral infarction; I95.1 Orthostatic hypotension; I25.10 Atherosclerotic heart disease of native coronary artery without angina pectoris; Z95.1 Presence of aortocoronary bypass graft; Z87.891 Personal history of nicotine dependence; R33.9 Retention of urine, unspecified; Z99.2 Dependence on renal dialysis